=== PATIENT | male | born 1950 | race Caucasian/White ===

== ENCOUNTER → 2019-06-23 07:48 | Outpatient (BNVA) | payer MEDICARE, OTHER, SELFPAY | PROVIDERS: Family Provider Family Medicine; PCP Family Medicine; Visit Provider Anesthesiology | DX: G89.29 Other chronic pain (principal); M51.36 Other intervertebral disc degeneration, lumbar region; M53.9 Dorsopathy, unspecified; M54.2 Cervicalgia; Z79.891 Long term (current) use of opiate analgesic | CPT/HCPCS: 99214 ==

== ENCOUNTER → 2019-08-17 08:01 | Outpatient (BNVA) | payer MEDICARE, OTHER, SELFPAY | PROVIDERS: Family Provider Family Medicine; PCP Family Medicine; Visit Provider Anesthesiology | DX: G89.29 Other chronic pain (principal); M51.36 Other intervertebral disc degeneration, lumbar region; M53.9 Dorsopathy, unspecified; M54.2 Cervicalgia; M79.651 Pain in right thigh; M79.652 Pain in left thigh; Z79.891 Long term (current) use of opiate analgesic | CPT/HCPCS: 99214 ==

== ENCOUNTER → 2019-12-06 10:45 | Outpatient (BNVA) | payer MEDICARE, OTHER, SELFPAY | PROVIDERS: Family Provider Family Medicine; PCP Family Medicine; Visit Provider Internal Medicine Cardiovascular Disease | DX: R07.89 Other chest pain (principal); I49.9 Cardiac arrhythmia, unspecified; Z79.01 Long term (current) use of anticoagulants; R53.83 Other fatigue; R06.02 Shortness of breath; E11.65 Type 2 diabetes mellitus with hyperglycemia; I10 Essential (primary) hypertension; E78.2 Mixed hyperlipidemia | CPT/HCPCS: 80048; 83036; 84443; 85025 ==

== ENCOUNTER → 2019-12-08 11:07 | Outpatient (BNVA) | payer MEDICARE, OTHER, SELFPAY | PROVIDERS: Family Provider Family Medicine; PCP Family Medicine; Visit Provider Nurse Practitioner Family | DX: E78.2 Mixed hyperlipidemia (principal); R53.83 Other fatigue; Z96.649 Presence of unspecified artificial hip joint; I10 Essential (primary) hypertension; M51.36 Other intervertebral disc degeneration, lumbar region; M54.5 Low back pain; G89.29 Other chronic pain; E11.65 Type 2 diabetes mellitus with hyperglycemia; J30.89 Other allergic rhinitis; M25.511 Pain in right shoulder | CPT/HCPCS: 73030; 80053; 80061; 82306 ==

== ENCOUNTER → 2019-12-13 08:37 | Outpatient (BNVA) | payer MEDICARE, OTHER, SELFPAY | PROVIDERS: Family Provider Family Medicine; PCP Family Medicine; Visit Provider Anesthesiology | DX: G89.29 Other chronic pain (principal); M54.2 Cervicalgia; M51.36 Other intervertebral disc degeneration, lumbar region; M54.9 Dorsalgia, unspecified; M53.9 Dorsopathy, unspecified; Z79.891 Long term (current) use of opiate analgesic | CPT/HCPCS: 99213; 99214 ==

== ENCOUNTER 2020-01-05 07:23 | Outpatient (RCR) | payer MEDICARE, OTHER, SELFPAY | END 2020-01-12 23:59 | disposition home or self-care (01) | LOC: SPT 07:23 | PROVIDERS: PCP Nurse Practitioner Family; Referring Provider Nurse Practitioner Family; Visit Provider Nurse Practitioner Family | DX: M25.511 Pain in right shoulder (principal) | CPT/HCPCS: 97110; 97162 ==

== ENCOUNTER 2020-01-13 06:00 | Outpatient (RCR) | payer MEDICARE, OTHER, SELFPAY | END 2020-02-12 23:59 | disposition home or self-care (01) | LOC: SPT 06:00 | PROVIDERS: PCP Nurse Practitioner Family; Referring Provider Nurse Practitioner Family; Visit Provider Nurse Practitioner Family | DX: M25.511 Pain in right shoulder (principal) | CPT/HCPCS: 97110 ==

== ENCOUNTER 2020-02-13 06:00 | Outpatient (RCR) | payer MEDICARE, OTHER, SELFPAY | END 2020-03-13 23:59 | disposition home or self-care (01) | LOC: SPT 06:00 | PROVIDERS: PCP Nurse Practitioner Family; Referring Provider Nurse Practitioner Family; Visit Provider Nurse Practitioner Family | DX: M25.511 Pain in right shoulder (principal) | CPT/HCPCS: 97110 ==

== ENCOUNTER → 2020-02-23 07:49 | Outpatient (BNVA) | payer MEDICARE, OTHER, SELFPAY | PROVIDERS: Family Provider Family Medicine; PCP Nurse Practitioner Family; Visit Provider Anesthesiology | DX: G89.29 Other chronic pain (principal); M54.2 Cervicalgia; M51.36 Other intervertebral disc degeneration, lumbar region; M54.42 Lumbago with sciatica, left side; M54.41 Lumbago with sciatica, right side; M54.9 Dorsalgia, unspecified; M53.9 Dorsopathy, unspecified; Z79.891 Long term (current) use of opiate analgesic | CPT/HCPCS: 99213; 99214 ==

== ENCOUNTER → 2020-03-01 12:09 | Outpatient (BNVA) | payer MEDICARE, OTHER, SELFPAY | PROVIDERS: Family Provider Family Medicine; PCP Nurse Practitioner Family; Visit Provider Nurse Practitioner Family | DX: E55.9 Vitamin D deficiency, unspecified (principal); E11.65 Type 2 diabetes mellitus with hyperglycemia | CPT/HCPCS: 82306; 83036 ==

== ENCOUNTER → 2020-03-21 07:39 | Outpatient (BNVA) | payer MEDICARE, OTHER, SELFPAY | PROVIDERS: Family Provider Family Medicine; PCP Nurse Practitioner Family; Visit Provider Urology | DX: C61 Malignant neoplasm of prostate (principal); N52.31 Erectile dysfunction following radical prostatectomy; N39.3 Stress incontinence (female) (male) | CPT/HCPCS: 81001 ==

== ENCOUNTER 2020-04-05 11:49 | Emergency (ER) | payer MEDICARE, OTHER, SELFPAY ==
[2020-04-05 12:08] VITALS: BP 125/87; PULSE 95; RESP 18; TEMP 36.9; O2SAT 93; BMI 28.1
--- NOTE | 2020-04-05 13:11 | XR_ITS ---
WS: [id number] Portable AP upright chest, 04/05/2020 Clinical Data: COVID +, Hypoxia Comparison: PA and lateral chest, 01/14/2006. Findings: No nodules, masses or effusions are seen. The heart is normal. The pulmonary vascularity is not increased. No pneumonia or pneumothorax is seen. Minimal patchy atelectatic changes is seen in b oth lower lobes. The aortic arch and descending aorta show tortuosity. XR/XR chest 1V portable [id number] Impression: 1. Atherosclerosis. 2. Minimal atelectatic changes in both lower lobes.
--- NOTE | 2020-04-05 13:29 | ED_ITS ---
HPI - SOB/Dyspnea General: Chief Complaint: COVID symptoms Stated Complaint: COVID + FROM [facility] Time Seen by Provider: 04/05/20 12:53 Source: patient Mode of arrival: ambulatory Limitations: no limitations History of Present Illness: HPI Narrative: Patient is a 69-year-old male who was diagnosed with COVID-19 4 days ago. His nurse practitioner evaluated him today and his oxygen saturation was about 90% on room air. He has complaints of mild shortness of breath and combined with his low oxygen saturation he was asked to come to the emergency department for evaluation. He has a history of hypertension, hyperlipidemia, diabetes, prostate cancer. He denies a fever. MD elicited complaint: shortness of breath Associated symptoms: Deny abdominal pain, fever(s), nausea, palpitations, polydipsia, polyuria or vomiting Review of Systems General: Reports: 10 or more systems reviewed and unremarkable except in HPI and below Const: Denies: fever(s), chills or body aches Eyes: Denies: change in vision or blurry vision ENMT: Denies: throat pain, enlarged tonsils, odynophagia, hoarseness, mouth pain or swelling of lips/tongue Card: Denies: palpitations, irregular heart rhythm, edema or swelling of feet/ankles Resp: Reports: dyspnea; Denies: productive cough or non-productive cough GI: Denies: abdominal pain, nausea or vomiting : Denies: flank pain, dysuria, urinary frequency, urinary urgency or urinary hesitancy Musc: Denies: neck pain, back pain or extremity swelling Skin/Breast: Denies: rash, pruritus or erythema Neuro: Denies: headache(s), numbness in extremities or weakness in extremities Endo: Denies: polyuria, polydipsia or tired all the time PFS ED PFSH: Medical History Abnormal prostate biopsy Atypical chest pain Back Pain Cervical spine pain Chronic low back pain Degeneration of lumbar intervertebral disc Encounter for long-term use of opiate analgesic Environmental and seasonal allergies Essential hypertension Fatigue Medication refill Mixed hyperlipidemia Multilevel degenerative disc disease Opioid contract exists Palpitation (~06/2019) Post-procedural erectile dysfunction Prostate cancer Skin graft (allograft) (autograft) failure Tonsillectomy planned Type 2 diabetes mellitus Ventricular arrhythmia The EKG from today, 12/06/2019, revealed sinus rhythm with a possible old inferior wall ND. Poor R wave progression. Compared to the previous EKG, there may not be a significant change. Surgical History H/O adenoidectomy H/O lateral meniscus repair of left knee History of appendectomy History of hip replacement right History of prostatectomy Hx of colonoscopy (~01/2018) S/P ureteral stent placement Family History Father , at age 88 Myocardial infarction (lateral wall) Mother , at age 53 Prostate cancer Aneurysm Other CAD (coronary artery disease) Diabetes Social History Smoking and tobacco status: former smoker Second hand smoke exposure: No Alcohol intake: never Lives independently: Yes Household members: spouse Marital status: Current occupational status: employed History of recent travel: No Physical Exam Const: COMMON NORMALS: no acute distress, average body habitus, patient oriented x3, no limitations, healthy appearing, alert and well nourished HENMT: COMMON NORMALS: normocephalic, atraumatic and moist oral mucous membranes HEAD & SCALP: normocephalic and atraumatic Neck/C-Spine: COMMON NORMALS: no meningeal signs and no JVD Chest: COMMONS NORMALS: normal inspection of the chest and normal palpation of entire chest wall Resp: COMMON NORMALS: normal respiratory effort, No retractions, No use of accessory muscles and percussion normal AUSCULTATION: rales bilateral PERCUSSION: percussion normal Cardio: COMMON NORMALS: no JVD, regular rate, regular rhythm, S1 normal heart sound present, S2 normal heart sound present, No gallops present (Cardio), No clicks present (Cardio), No murmurs present (Cardio), No rub (Cardio) and Peripheral pulses 2+ throughout RATE: regular rate RHYTHM: regular rhythm HEART SOUNDS: S1 normal heart sound present and S2 normal heart sound present PERIPHERAL PULSES: Peripheral pulses 2+ throughout GI: COMMON NORMALS: Normal to inspection, nondistended, normoactive bowel sounds present, Soft to palpation, non-tender, No hepatosplenomegaly present, no masses and no bruits PALPATION: Yes Soft to palpation and Yes No hepatosplenomegaly present Extremity: COMMON NORMALS: normal to inspection, full ROM, capillary refill normal, no calf tenderness and no pedal edema Neuro: COMMON NORMALS: patient oriented x3 SENSORIUM/ORIENTATION: Yes alert MENINGEAL SIGNS: Yes no meningeal signs Skin: COMMON NORMALS: no rashes or lesions noted, no wounds, turgor normal, no jaundice, no petechiae and no mottling GENERAL SKIN EXAM: no rashes or lesions noted and turgor normal Course Reevaluation(s): Reevaluation #1: Discussed his lab and imaging findings with him. Labs are unremarkable, and are typical for COVID-19. Chest x-ray is negative for acute findings. He is oxygen saturation has been above 94 throughout his ED stay. We will therefore discharge him home with no new orders. He voiced understanding and is in agreement with the plan. Time: 17:00 Vital Signs: Vital signs: Vital Signs Temperature 98.4 F 04/05/20 12:08 Pulse Rate 85 04/05/20 17:30 Respiratory Rate 20 H 04/05/20 17:30 Blood Pressure 124/99 04/05/20 17:30 Pulse Oximetry 94 04/05/20 17:30 MDM - SOB/Dyspnea MDM Narrative: Medical decision making narrative: Patient with a recent diagnosis of COVID-19 infection. He was sent here because of concerns of for hypoxia. In the emergency department he was not hypoxic and his evaluation was unremarkable for severe Covid. He is therefore discharged home with no new orders. Lab Data: Labs: Lab Results 04/05/20 04/05/20 04/05/20 Range/Units 14:20 14:20 14:20 WBC 5.1 (4.0-10.0) 10^3/ uL RBC 5.57 H (4.1-5.3) 10^6/u L Hgb 16.8 H (11.7-16.6) g/dL Hct 50.7 (42.0-52.0) % MCV 91.0 (80-94) fL MCH 30.2 (28.0-34.0) pg MCHC 33.1 (30.0-36.0) g/dL RDW 12.1 (12.1-15.1) % Plt Count 172 (130-400) 10^3/c mm MPV 9.3 (7.4-10.4) fL Neut % (Auto) 82.7 % Lymph % (Auto) 10.2 % [place] % (Auto) 6.1 % Eos % (Auto) 0.4 % Baso % (Auto) 0.4 % Neut # (Auto) 4.22 (1.8-7.7) 10^3/u L Lymph # (Auto) 0.5 L (0.8-4.8) 10^3/u L [place] # (Auto) 0.3 (0.2-0.9) 10^3/u L Eos # (Auto) 0.0 (0.0-0.8) 10^3/u L Baso # (Auto) 0.0 (0.0-0.1) 10^3/u L Nucleated RBC % (a uto) 0 % Nucleated RBCs # 0.0 /100WBC Fibrinogen 576 H (174-498) mg/dL D-Dimer 0.46 (0-0.59) ug/mIFE U Sodium 139 (136-145) mmol/L Potassium 4.0 (3.5-5.1) mmol/L Chloride 102 (98-107) mmol/L Carbon Dioxide 24 (22-29) mmol/L Anion Gap 17.0 (5-19) BUN 18 (8-23) mg/dL Creatinine 0.9 (0.7-1.2) mg/dL GFR Calculation 84.2 L (90-130) mL/min Glucose 135 H (65-115) mg/dL Calculated Osmolal ity 292 (285-295) mOsm/k g Lactic Acid (0.5-2.2) mmol/L Calcium 9.2 (8.5-10.5) mg/dL Total Bilirubin 0.4 (0.15-1.2) mg/dL AST 33 (0-40) U/L ALT 44 H (0-41) U/L Alkaline Phosphata se 60 (40-130) IU/L Lactate Dehydrogen ase 198 (135-225) U/L C-Reactive Protein 55.0 H (0.0-4.9) mg/L Total Protein 7.2 (6.6-8.7) g/dL Albumin 4.3 (3.5-5.2) g/dL Globulin 2.9 (1.3-4.6) g/dL 04/05/20 Range/Units 14:20 WBC (4.0-10.0) 10^3/ uL RBC (4.1-5.3) 10^6/u L Hgb (11.7-16.6) g/dL Hct (42.0-52.0) % MCV (80-94) fL MCH (28.0-34.0) pg MCHC (30.0-36.0) g/dL RDW (12.1-15.1) % Plt Count (130-400) 10^3/c mm MPV (7.4-10.4) fL Neut % (Auto) % Lymph % (Auto) % [place] % (Auto) % Eos % (Auto) % Baso % (Auto) % Neut # (Auto) (1.8-7.7) 10^3/u L Lymph # (Auto) (0.8-4.8) 10^3/u L [place] # (Auto) (0.2-0.9) 10^3/u L Eos # (Auto) (0.0-0.8) 10^3/u L Baso # (Auto) (0.0-0.1) 10^3/u L Nucleated RBC % (a uto) % Nucleated RBCs # /100WBC Fibrinogen (174-498) mg/dL D-Dimer (0-0.59) ug/mIFE U Sodium (136-145) mmol/L Potassium (3.5-5.1) mmol/L Chloride (98-107) mmol/L Carbon Dioxide (22-29) mmol/L Anion Gap (5-19) BUN (8-23) mg/dL Creatinine (0.7-1.2) mg/dL GFR Calculation (90-130) mL/min Glucose (65-115) mg/dL Calculated Osmolal ity (285-295) mOsm/k g Lactic Acid 1.4 (0.5-2.2) mmol/L Calcium (8.5-10.5) mg/dL Total Bilirubin (0.15-1.2) mg/dL AST (0-40) U/L ALT (0-41) U/L Alkaline Phosphata se (40-130) IU/L Lactate Dehydrogen ase (135-225) U/L C-Reactive Protein (0.0-4.9) mg/L Total Protein (6.6-8.7) g/dL Albumin (3.5-5.2) g/dL Globulin (1.3-4.6) g/dL Imaging Data^: CXR: Attestation: I personally reviewed and interpreted this imaging study as follows: Radiologist's impression: [address] [place] [address] XRay Report Signed Patient: Deejay Hankins #: [id number] : 3Acct#:[id number] Age/Sex: 69 / MADM Date: 04/05/20 [facility] Attending Dr: Ordering Provider/Ordering MD: Stoney Poon MD, [facility] Date of Service: 04/05/20 Procedure(s): XR chest 1V portable [id number] Accession Number(s): [id number] Report Number: [id number] WS: [id number] Portable AP upright chest, 04/05/2020 Clinical Data: COVID +, Hypoxia Comparison: PA and lateral chest, 01/14/2006. Findings: No nodules, masses or effusions are seen. The heart is normal. The pulmonary vascularity is not increased. No pneumonia or pneumothorax is seen. Minimal patchy atelectatic changes is seen in both lower lobes. The aortic arch and descending aorta show tortuosity. XR/XR chest 1V portable [id number] Impression: 1. Atherosclerosis. 2. Minimal atelectatic changes in both lower lobes. Dictated By:Ingrid Arreaga MD Signed By:Ingrid Arreaga MDSigned Date/Time:04/05/20 135 DD/ 135 Discharge Plan Discharge Patient Disposition: Home Clinical Impression: COVID-19 virus detected Condition: Stable Prescriptions: Continued amlodipine 10 mg tablet 10 mg PO DAILY Qty: 90 RF: 1 Jardiance 10 mg tablet 10 mg PO DAILY 30 Days Qty: 30 RF: 5 hydrocodone-acetaminophen 10-325 mg tablet 1 tab PO TID PRN (Reason: pain) 30 Days Qty: 90 RF: 0 tizanidine 4 mg tablet 4 mg PO BID PRNRF: 0 triamcinolone acetonide 0.1 % cream 1 applic TOPICAL BID PRNRF: 0 B Complex Plus Vitamin C 66-12-93-5-300 mg capsule 1 cap PO DAILY RF: 0 magnesium hydroxide 400 mg (170 mg magnesium) tablet,chewable PO BID RF: 0 sildenafil (pulm.hypertension) 20 mg tablet 20 mg PO .prn RF: 0 Zyrtec 10 mg capsule PO DAILY RF: 0 vitamin d 2,000 mg PO DAILY RF: 0 ascorbic acid (vitamin C) 1,000 mg tablet 1 gm PO DAILY RF: 0 metoprolol succinate 50 mg tablet extended release 24 hr 50 mg PO BID 30 Days Qty: 60 RF: 5 metformin 500 mg tablet 1,000 mg PO BID 90 Days Qty: 360 RF: 0 atorvastatin 40 mg tablet 40 mg PO DAILY Qty: 90 RF: 0 gabapentin [Neurontin] 300 mg capsule 300 mg PO TID 90 Days Qty: 270 RF: 0 montelukast 10 mg tablet 10 mg PO DAILY Qty: 90 RF: 0 furosemide [Lasix] 20 mg tablet 20 mg PO DAILY PRN (Reason: edema) 30 Days Qty: 90 RF: 3 potassium chloride 8 mEq capsule, extended release 8 meq PO DAILY PRN (Reason: with lasix) 30 Days Qty: 90 RF: 3 meloxicam 15 mg tablet 15 mg PO DAILY Qty: 90 RF: 0 Discharge Orders: Discharge Order (Routine); Ordered 04/05/20 Ordered By: Stoney Poon Referrals: Marylu Gómez FNP [Primary Care Provider] - 1-3 days Discharge Diet: Usual diet Discharge Activity: Increase activity as tolerated Patient Instructions: Viral Syndrome (ED) Activity Restrictions/Additional Instructions: Return for any new or worsening symptoms. Follow-up with your primary care provider within 3 days. Continue your home medications. Discharge Date/Time: 04/05/20 17:34 Coding Level of Care Code ED Trolley Worker for Chg Fwd Exam Comprehensive
[2020-04-05 13:44] VITALS: O2SAT 93
[2020-04-05 14:31] LABS: Basophils % 0.4 %; Eosinophils % 0.4 %; Hematocrit 50.7 % (42.0-52.0); Hemoglobin 16.8 g/dL (11.7-16.6); Lymphocytes # 0.5 10^3/uL (0.8-4.8); Lymphocytes % 10.2 %; Mean Corpuscular HGB Conc 33.1 g/dL (30.0-36.0); Mean Corpuscular Hemoglobin 30.2 pg (28.0-34.0); Mean Platelet Volume 9.3 fL (7.4-10.4); Monocytes # 0.3 10^3/uL (0.2-0.9); Monocytes % 6.1 %; Neutrophils # 4.22 10^3/uL (1.8-7.7); Neutrophils % 82.7 %; Nucleated Red Blood Cells % 0 %; Platelet Count 172 10^3/cmm (130-400); Red Blood Count 5.57 10^6/uL (4.1-5.3); Red Cell Distribution Width 12.1 % (12.1-15.1); White Blood Count 5.1 10^3/uL (4.0-10.0)
[2020-04-05 14:55] VITALS: BP 145/92; PULSE 85; RESP 20; O2SAT 95
[2020-04-05 15:10] LABS: Lactic Sepsis W/Reflex 1.4 mmol/L (0.5-2.2)
[2020-04-05 15:12] LABS: Alanine Aminotransferase 44 U/L (0-41); Albumin Level 4.3 g/dL (3.5-5.2); Alkaline Phosphatase 60 IU/L (40-130); Aspartate Amino Transferase 33 U/L (0-40); Blood Urea Nitrogen 18 mg/dL (8-23); Calcium 9.2 mg/dL (8.5-10.5); Carbon Dioxide 24 mmol/L (22-29); Chloride 102 mmol/L (98-107); Globulin 2.9 g/dL (1.3-4.6); Glomerular Filtration Rate 84.2 mL/min (90-130); Glucose 135 mg/dL (65-115); Lactate Dehydrogenase 198 U/L (135-225); Osmolality Calculated 292 mOsm/kg (285-295); Sodium 139 mmol/L (136-145); Total Bilirubin 0.4 mg/dL (0.15-1.2); Total Protein 7.2 g/dL (6.6-8.7)
[2020-04-05 15:33] LABS: Fibrinogen 576 mg/dL (174-498)
[2020-04-05 15:36] LABS: D Dimer 0.46 ug/mIFEU (0-0.59)
[2020-04-05 16:48] VITALS: BP 138/101; PULSE 87; RESP 18; O2SAT 93
[2020-04-05 17:30] VITALS: BP 124/99; PULSE 85; RESP 20; O2SAT 94
== END 2020-04-05 17:34 | disposition home or self-care (01) ==
PROVIDERS: Emergency Provider Family Medicine; PCP Nurse Practitioner Family
DX: U07.1 COVID-19 (principal); Z79.84 Long term (current) use of oral hypoglycemic drugs; I10 Essential (primary) hypertension; E78.2 Mixed hyperlipidemia; Z85.46 Personal history of malignant neoplasm of prostate; E11.9 Type 2 diabetes mellitus without complications; Z87.891 Personal history of nicotine dependence
CPT/HCPCS: 12345; 71045; 80053; 83605; 83615; 85025; 85378; 85384; 86140; 99282; 99283

== ENCOUNTER 2020-04-10 09:32 | Inpatient (IN) | payer MEDICARE, OTHER, SELFPAY ==
[2020-04-10] VITALS (17 sets, daily range): BP systolic 132–155; BP diastolic 70–95; PULSE 77–102; RESP 18–38; TEMP 36.4–37.4; O2SAT 92–97; BMI 25.2; BMI 25.7
--- NOTE | 2020-04-10 09:38 | XR_ITS ---
WS: [id number] Exam: XR chest 1V portable [id number] Date/Time of Exam: 04/10/2020 9:55 AM Reason For Exam: syncope Findings: Mild groundglass infiltrates have developed in the left lower lung zone with areas of plaque atelecta sis. There is also plaque atelectasis in the right lower lung zone. Heart size is normal. The mediast inum and bony thorax are unremarkable. Thoracic scoliosis noted. XR/XR chest 1V portable [id number] IMPRESSION: 1. Mild groundglass infiltrates have developed in the mid and lower left lung s uggesting pneumonia. Bibasal plaque atelectasis.
[2020-04-10 10:30] LABS: Basophils % 0.2 %; Eosinophils % 0.5 %; Hematocrit 47.9 % (42.0-52.0); Lymphocytes # 0.5 10^3/uL (0.8-4.8); Lymphocytes % 8.1 %; Mean Corpuscular HGB Conc 33.4 g/dL (30.0-36.0); Mean Corpuscular Hemoglobin 29.9 pg (28.0-34.0); Mean Corpuscular Volume 89.4 fL (80-94); Mean Platelet Volume 9.8 fL (7.4-10.4); Monocytes # 0.4 10^3/uL (0.2-0.9); Monocytes % 5.7 %; Neutrophils # 5.54 10^3/uL (1.8-7.7); Neutrophils % 84.9 %; Nucleated Red Blood Cells % 0 %; Platelet Count 279 10^3/cmm (130-400); Red Blood Count 5.36 10^6/uL (4.1-5.3); Red Cell Distribution Width 12.6 % (12.1-15.1); White Blood Count 6.5 10^3/uL (4.0-10.0)
[2020-04-10 10:42] LABS: Fibrinogen 732 mg/dL (174-498)
[2020-04-10 10:45] LABS: D Dimer 0.89 ug/mIFEU (0-0.59)
[2020-04-10 10:48] LABS: Lactate (Lactic Acid level) 1.2 mmol/L (0.5-2.2)
[2020-04-10 11:00] LABS: Procalcitonin 8.86 ng/mL (0-0.5)
--- NOTE | 2020-04-10 11:02 | ED_ITS ---
HPI - COVID General: Chief Complaint: COVID symptoms Stated Complaint: WORSENING SYMPTOMS, COVID POSITIVE Time Seen by Provider: 04/10/20 09:56 Triage information: Has fever, cough or shortness of breath . Exposure to COVID + person last 14 days History of Present Illness: HPI Narrative: 69-year-old male presents emergency room with complaint of shortness of breath congestion. On 04/01 the patient tested positive for Covid. He states that on 04/05 he was seen in another ER for shortness of breath that continues to worsen until today he represents. On arrival his oxygen sat are 90 to 93%. He has had temperature of 102 at home as well. MD complaint: known COVID positive Prior covid testing: yes, results known Prior testing date: 04/01/20 COVID 19 common symptoms: positive fever(s), chills, cough and dyspnea; negative throat pain, nasal congestion, nausea, vomiting or diarrhea COVID 19 other sytmptoms: positive chest pressure; negative chest pain Onset (ago): day(s) (9) Severity: severe Pertinent comorbid conditions: diabetes and hypertension Treatment prior to arrival: acetaminophen COVID Results: No Data to Display Review of Systems Const: Reports: fever(s) and chills ENMT: Denies: throat pain, ear or mastoid pain, nasal discharge or nasal congestion Card: Denies: chest pain, edema, dyspnea on exertion or orthopnea Resp: Reports: dyspnea GI: Denies: abdominal pain, nausea, vomiting, hematemesis, coffee ground emesis, diarrhea, constipation, bloating, hematochezia or melena : Denies: flank pain, dysuria, urinary frequency or urinary urgency Skin/Breast: Denies: rash or pruritus PFSH ED PFSH: Medical History Abnormal prostate biopsy Atypical chest pain Back Pain Cervical spine pain Chronic low back pain Degeneration of lumbar intervertebral disc Encounter for long-term use of opiate analgesic Environmental and seasonal allergies Essential hypertension Fatigue Medication refill Mixed hyperlipidemia Multilevel degenerative disc disease Opioid contract exists Palpitation (~06/2019) Post-procedural erectile dysfunction Prostate cancer Skin graft (allograft) (autograft) failure Tonsillectomy planned Type 2 diabetes mellitus Ventricular arrhythmia The EKG from today, 12/06/2019, revealed sinus rhythm with a possible old inferior wall [place]. Poor R wave progression. Compared to the previous EKG, there may not be a significant change. Surgical History H/O adenoidectomy H/O lateral meniscus repair of left knee History of appendectomy History of hip replacement right History of prostatectomy Hx of colonoscopy (~01/2018) S/P ureteral stent placement Family History Father , at age 88 Myocardial infarction (lateral wall) Mother , at age 53 Prostate cancer Aneurysm Other CAD (coronary artery disease) Diabetes Social History (Updated 04/10/20 @ 17:06 by Hilda Yoon MD) Smoking and tobacco status: former smoker Quit status (tobacco): has quit using tobacco Former quit date comment: 50 yrs ago Second hand smoke exposure: No Alcohol intake: never Substance/Drug Use: never Lives independently: Yes Household members: spouse Marital status: Current occupational status: employed 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 History of recent travel: No Physical Exam Const: GENERAL APPEARANCE: cooperative ORIENTATION/CONSCIOUSNESS: Yes awake, Yes oriented to person, Yes oriented to place and Yes oriented to time HENMT: COMMON NORMALS: normocephalic, atraumatic and hearing grossly normal bi laterally HEAD & SCALP: normocephalic and atraumatic Neck/C-Spine: COMMON NORMALS: no JVD Resp: AUSCULTATION: rhonchi and wheezes Cardio: COMMON NORMALS: no JVD, regular rate, regular rhythm and No murmurs present (Cardio) RATE: regular rate RHYTHM: regular rhythm GI: COMMON NORMALS: Soft to palpation and No hepatosplenomegaly present AUSCULTATION: Yes normoactive bowel sounds PALPATION: Yes Soft to palpation, No Tenderness to palpation present (GI), No Guarding due to palpation present (GI) and Yes No hepatosplenomegaly present Extremity: COMMON NORMALS: normal to inspection, capillary refill normal, no clubbing, cyanosis or edema, no calf tenderness and no pedal edema Neuro: SENSORIUM/ORIENTATION: Yes oriented to person, Yes oriented to place and Yes oriented to time Skin: COMMON NORMALS: no rashes or lesions noted GENERAL SKIN EXAM: no rashes or lesions noted Course Vital Signs: Vital signs: Vital Signs Temperature 98.4 F 04/11/20 07:31 Pulse Rate 91 04/11/20 06:00 Respiratory Rate 14 04/11/20 06:00 Blood Pressure 135/71 04/11/20 06:00 Pulse Oximetry 92 04/11/20 06:00 MDM - COVID Lab Data Result diagrams: 04/11/20 03:30 04/11/20 03:30 Labs: Lab Results 04/10/20 04/10/20 04/10/20 Range/Units 10:10 10:10 10:10 WBC 6.5 (4.0-10.0) 10^3/uL RBC 5.36 H (4.1-5.3) 10^6/uL Hgb 16.0 (11.7-16.6) g/dL Hct 47.9 (42.0-52.0) % MCV 89.4 (80-94) fL MCH 29.9 (28.0-34.0) pg MCHC 33.4 (30.0-36.0) g/dL RDW 12.6 (12.1-15.1) % Plt Count 279 (130-400) 10^3/cmm MPV 9.8 (7.4-10.4) fL Neut % (Auto) 84.9 % Lymph % (Auto) 8.1 % [place] % (Auto) 5.7 % Eos % (Auto) 0.5 % Baso % (Auto) 0.2 % Neut # (Auto) 5.54 (1.8-7.7) 10^3/uL Lymph # (Auto) 0.5 L (0.8-4.8) 10^3/uL Todd # (Auto) 0.4 (0.2-0.9) 10^3/uL Eos # (Auto) 0.0 (0.0-0.8) 10^3/uL Baso # (Auto) 0.0 (0.0-0.1) 10^3/uL Nucleated RBC % (auto) 0 % Nucleated RBCs # 0.0 /100WBC ESR (0-10) mm/hr Fibrinogen 732 H (174-498) mg/dL D-Dimer 0.89 H (0-0.59) ug/mIFEU Sodium 139 (136-145) mmol/L Potassium 3.9 (3.5-5.1) mmol/L Chloride 103 (98-107) mmol/L Carbon Dioxide 20 L (22-29) mmol/L Anion Gap 19.9 H (5-19) BUN 19 (8-23) mg/dL Creatinine 0.6 L (0.7-1.2) mg/dL GFR Calculation 134.4 H (90-130) mL/min Glucose 123 H (65-115) mg/dL Calculated Osmolality 292 (285-295) mOsm/kg Lactate (0.5-2.2) mmol/L Calcium 9.5 (8.5-10.5) mg/dL Ferritin 1661 H (30-400) ng/mL Total Bilirubin 0.4 (0.15-1.2) mg/dL AST 36 (0-40) U/L ALT 30 (0-41) U/L Alkaline Phosphatase 57 (40-130) IU/L C-Reactive Protein 65.4 H (0.0-4.9) mg/L Total Protein 7.3 (6.6-8.7) g/dL Albumin 4.0 (3.5-5.2) g/dL Globulin 3.3 (1.3-4.6) g/dL Procalcitonin 8.86 H (0-0.5) ng/mL 04/10/20 04/10/20 Range/Units 10:10 10:10 WBC (4.0-10.0) 10^3/uL RBC (4.1-5.3) 10^6/uL Hgb (11.7-16.6) g/dL Hct (42.0-52.0) % MCV (80-94) fL MCH (28.0-34.0) pg MCHC (30.0-36.0) g/dL RDW (12.1-15.1) % Plt Count (130-400) 10^3/cmm MPV (7.4-10.4) fL Neut % (Auto) % Lymph % (Auto) % [place] % (Auto) % Eos % (Auto) % Baso % (Auto) % Neut # (Auto) (1.8-7.7) 10^3/uL Lymph # (Auto) (0.8-4.8) 10^3/uL Todd # (Auto) (0.2-0.9) 10^3/uL Eos # (Auto) (0.0-0.8) 10^3/uL Baso # (Auto) (0.0-0.1) 10^3/uL Nucleated RBC % (auto) % Nucleated RBCs # /100WBC ESR 58 H (0-10) mm/hr Fibrinogen (174-498) mg/dL D-Dimer (0-0.59) ug/mIFEU Sodium (136-145) mmol/L Potassium (3.5-5.1) mmol/L Chloride (98-107) mmol/L Carbon Dioxide (22-29) mmol/L Anion Gap (5-19) BUN (8-23) mg/dL Creatinine (0.7-1.2) mg/dL GFR Calculation (90-130) mL/min Glucose (65-115) mg/dL Calculated Osmolality (285-295) mOsm/kg Lactate 1.2 (0.5-2.2) mmol/L Calcium (8.5-10.5) mg/dL Ferritin (30-400) ng/mL Total Bilirubin (0.15-1.2) mg/dL AST (0-40) U/L ALT (0-41) U/L Alkaline Phosphatase (40-130) IU/L C-Reactive Protein (0.0-4.9) mg/L Total Protein (6.6-8.7) g/dL Albumin (3.5-5.2) g/dL Globulin (1.3-4.6) g/dL Procalcitonin (0-0.5) ng/mL COVID Results: No Data to Display Discharge Plan Discharge Patient Disposition: Admitted As Inpatient Admit Provider: Hilda Yoon Clinical Impression: Pneumonia due to COVID-19 virus, Type 2 diabetes mellitus, Essential hypertension Condition: Stable Interventions: ED Discharge Assessment Last Done: 04/10/20 15:38 ED Charges Last Done: 04/10/20 15:38 Discharge Date/Time: 04/10/20 16:02 Coding Level of Care Code ED Men'S Furnishings Salesperson for Griselda Fwd Exam Comprehensive
[2020-04-10 11:11] LABS: Alanine Aminotransferase 30 U/L (0-41); Alkaline Phosphatase 57 IU/L (40-130); Anion Gap 19.9 (5-19); Aspartate Amino Transferase 36 U/L (0-40); Blood Urea Nitrogen 19 mg/dL (8-23); C Reactive Protein 65.4 mg/L (0.0-4.9); Calcium 9.5 mg/dL (8.5-10.5); Carbon Dioxide 20 mmol/L (22-29); Chloride 103 mmol/L (98-107); Creatinine Clr Calc Pharmacy 90.1834; Globulin 3.3 g/dL (1.3-4.6); Glomerular Filtration Rate 134.4 mL/min (90-130); Glucose 123 mg/dL (65-115); Osmolality Calculated 292 mOsm/kg (285-295); Potassium 3.9 mmol/L (3.5-5.1); Sodium 139 mmol/L (136-145); Total Bilirubin 0.4 mg/dL (0.15-1.2); Total Protein 7.3 g/dL (6.6-8.7)
[2020-04-10 11:20] LABS: Erythrocyte Sedimentation Rate 58 mm/hr (0-10)
[2020-04-10 11:33] LABS: Ferritin 1661 ng/mL (30-400)
[2020-04-10] MEDS: dexamethasone 4 mg/mL INJ 6 MG IVP (11:45)
--- NOTE | 2020-04-10 13:59 | PC.NURSE ---
Rx completed, no acute distress. Continue to monitor
--- NOTE | 2020-04-10 15:34 | PC.NURSE ---
Dr Stevens in room
--- NOTE | 2020-04-10 16:58 | P.HP_ITS ---
Providers/Chief Complaint Admitting Physician: Hilda Yoon MD Primary Care Provider: JARROD Seay Chief Complaint: WORSENING SYMPTOMS, COVID POSITIVE History of Present Illness Deejay Hankins is a 69 year old male with PMHx noted below, presents secondary to worsening shortness of breath, persistent dry cough, fever for the past several days. He was initially diagnosed with COVID-19 infection on 04/03 and since then his symptoms have gradually been worsening particularly with respect to shortness of breath and cough. He has also had diarrhea, abdominal discomfort and nausea, decreased appetite, loss of sense of taste and smell and the fever with a T-max of 102F. He is not oxygen dependent at baseline and has had increased respiratory effort which is what prompted his visit to the ER today. He is currently on 2 L nasal cannula during my encounter in the ER, with noted conversational dyspnea but is able to provide much of his own history; additional information obtained from review of [facility]. Work-up so far indicates normal CBC, normal chemistry, normal renal function, lactic acid of 1.2, significant elevation in procalcitonin at 8.86, elevated inflammatory markers including D-dimer, ferritin, CRP. Chest x-ray is reported as groundglass infiltrates involving the left lung. He has received a first dose of remdesivir and dexamethasone and will require further treatment given his symptoms. He will be admitted to the viral ICU for further management. Review of Systems Const: Reports: fever(s), chills, body aches, change in appetite (decreased appetite), change in weight (weight loss), fatigue and malaise Eyes: Denies: change in vision ENMT: Reports: dry mouth Card: Reports: dyspnea on exertion; Denies: chest pain, swelling of feet/ankles or lightheadedness Resp: Reports: dyspnea and productive cough (clear sputum); Denies: hemoptysis GI: Reports: nausea; Denies: abdominal pain, vomiting, hematemesis or hematochezia : Denies: dysuria or hematuria Musc: Denies: back pain Skin/Breast: Denies: rash Neuro: Reports: weakness in extremities; Denies: numbness in extremities Psych: Denies: anxiety Medications/Allergies Home Medications Medication Instructions Recorded Confirmed Last Taken Type tizanidine 4 mg tablet 4 mg PO BID PRN 06/15/19 04/10/20 Unknown History triamcinolone acetonide 0.1 % 1 applic TOPICAL BID PRN 06/15/19 04/10/20 Unknown History topical cream cetirizine 10 mg capsule 10 mg PO DAILY cap 06/16/19 04/10/20 04/09/20 History furosemide 20 mg tablet 20 mg PO DAILY PRN 30 Days #90 tab 09/06/19 04/10/20 Unknown Rx metoprolol succinate 50 mg 50 mg PO BID 30 Days #60 tab 12/06/19 04/10/20 04/10/20 Rx tablet,extended release 24 hr amlodipine 10 mg tablet 10 mg PO DAILY #90 tab 12/08/19 04/10/20 04/10/20 Rx empagliflozin 10 mg tablet 10 mg PO DAILY 30 Days #30 tab 12/08/19 04/10/20 04/10/20 Rx potassium chloride 8 mEq 8 meq PO DAILY PRN 30 Days #90 cap 02/14/20 04/10/20 Unknown Rx capsule,extended release hydrocodone 10 mg-acetaminophen 1 tab PO TID PRN 30 Days #90 tab 02/23/20 04/10/20 04/09/20 Rx 325 mg tablet atorvastatin 40 mg tablet 40 mg PO DAILY #90 tab 03/01/20 04/10/20 04/09/20 Rx gabapentin 300 mg capsule 300 mg PO TID 90 Days #270 cap 03/01/20 04/10/20 04/10/20 Rx meloxicam 15 mg tablet 15 mg PO DAILY #90 tab 03/01/20 04/10/20 Unknown Rx metformin 500 mg tablet 1,000 mg PO BID 90 Days #360 tab 03/01/20 04/10/20 1 Rx montelukast 10 mg tablet 10 mg PO DAILY #90 tab 03/01/20 04/10/20 04/10/20 Rx ascorbic acid (vitamin C) 1,000 mg 1 gm PO DAILY tab 03/21/20 04/10/20 04/09/20 History tablet sildenafil (pulm.hypertension) 20 20 mg PO PRN PRN tab 03/21/20 04/10/20 Unknown History mg tablet acetaminophen 325 mg PO QID PRN 04/10/20 04/10/20 04/09/20 History aspirin 162 mg PO DAILY 04/10/20 04/10/20 04/10/20 History cholecalciferol (vitamin D3) 50 mcg PO DAILY 04/10/20 04/10/20 04/10/20 History [Vitamin D3] ibuprofen 600 mg PO QID PRN 04/10/20 04/10/20 04/10/20 History magnesium 250 mg PO BID 04/10/20 04/10/20 04/10/20 History Allergies Allergy/AdvReac Type Severity Reaction Status Date / Time tramadol Allergy itching Verified 04/10/20 09:46 Opioids - Morphine Analogues AdvReac Unknown extreme Verified 04/10/20 09:46 headache PFSH Acute PFSH: Medical History Abnormal prostate biopsy Atypical chest pain Back Pain Cervical spine pain Chronic low back pain Degeneration of lumbar intervertebral disc Encounter for long-term use of opiate analgesic Environmental and seasonal allergies Essential hypertension Fatigue Medication refill Mixed hyperlipidemia Multilevel degenerative disc disease Opioid contract exists Palpitation (~06/2019) Post-procedural erectile dysfunction Prostate cancer Skin graft (allograft) (autograft) failure Tonsillectomy planned Type 2 diabetes mellitus Ventricular arrhythmia The EKG from today, 12/06/2019, revealed sinus rhythm with a possible old inferior wall WI. Poor R wave progression. Compared to the previous EKG, there may not be a significant change. Surgical History H/O adenoidectomy H/O lateral meniscus repair of left knee History of appendectomy History of hip replacement right History of prostatectomy Hx of colonoscopy (~01/2018) S/P ureteral stent placement Family History Father , at age 88 Myocardial infarction (lateral wall) Mother , at age 53 Prostate cancer Aneurysm Other CAD (coronary artery disease) Diabetes Social History (Updated 04/10/20 @ 17:06 by Hilda Yoon MD) Smoking and tobacco status: former smoker Quit status (tobacco): has quit using tobacco Former quit date comment: 50 yrs ago Second hand smoke exposure: No Alcohol intake: never Substance/Drug Use: never Lives independently: Yes Household members: spouse Marital status: Current occupational status: employed Current occupation: [employer] History of recent travel: No Vitals/I&O/Wt Last Vital Signs Temp 99.3 F 04/10/20 16:00 Pulse 95 04/10/20 16:00 Resp 30 H 04/10/20 16:00 BP 155/82 04/10/20 16:00 Pulse Ox 95 04/10/20 16:00 04/10/20 04/10/20 04/10/20 06:59 14:59 22:59 Intake Total 100 / 100 Balance 100 / 100 Weight last 48 hrs Weight 76.884 kg Weight 75.296 kg Physical Exam Const: COMMON NORMALS: no acute distress, patient oriented x3 and alert GENERAL APPEARANCE: cooperative and comfortable ORIENTATION/CONSCIOUSNESS: Yes awake OTHER: -Somewhat ill-appearing HENMT: COMMON NORMALS: normocephalic, atraumatic, hearing grossly normal bilaterally and moist oral mucous membranes HEAD & SCALP: normocephalic and atraumatic Eye: COMMON NORMALS: Equal, round and reactive pupils present, EOMs intact bilaterally and conjunctivae normal CONJUNCTIVA: Yes conjunctivae normal PUPIL: Yes Equal, round and reactive pupils present Neck/C-Spine: COMMON NORMALS: full ROM GENERAL: Yes normal visual inspection and Yes trachea midline Resp: COMMON NORMALS: normal respiratory effort, No retractions and No use of accessory muscles EFFORT & INSPECTION: Yes symmetric chest movement and Yes tachypneic OTHER: -on 2 L NC -Diminished though symmetrical air entry bilaterally; conversational dyspnea Cardio: COMMON NORMALS: regular rate, regular rhythm, S1 normal heart sound present, S2 normal heart sound present and No murmurs present (Cardio) RATE: regular rate RHYTHM: regular rhythm HEART SOUNDS: S1 normal heart sound present and S2 normal heart sound present GI: COMMON NORMALS: Normal to inspection, nondistended, normoactive bowel sounds present, Soft to palpation and non-tender INSPECTION: Yes central obesity PALPATION: Yes Soft to palpation Extremity: COMMON NORMALS: normal to inspection, full ROM and no clubbing, cyanosis or edema; negative for no pedal edema Neuro: COMMON NORMALS: patient oriented x3, moves all extremities, no focal motor deficits and no sensory deficits noted SENSORIUM/ORIENTATION: Yes alert Psych: COMMON NORMALS: mental status grossly normal, Normal thought process present, cooperative, normal affect and speech normal SPEECH: Yes normal speech THOUGHT PROCESS: Normal thought process present Skin: COMMON NORMALS: no rashes or lesions noted, no jaundice, no petechiae and no mottling GENERAL SKIN EXAM: no rashes or lesions noted Data : 04/10/20 10:10 04/10/20 10:10 Micro: Microbiology 04/10/20 12:21 Gram Stain - Final Sputum - Expectorated Sputum 04/10/20 10:15 Blood Culture - Preliminary Blood SPECIMEN COLLECTED 04/10/20 10:10 Blood Culture - Preliminary Blood SPECIMEN COLLECTED A&P Assessment and plan (1) Pneumonia due to COVID-19 virus: -Has been COVID-19 positive for several days with gradually worsening symptoms (test on 04/03) particularly with respect to shortness of breath, persistent cough, diarrhea, decreased appetite and oral intake -Not oxygen dependent at baseline, currently requiring 2 L nasal cannula, wean as tolerated -Monitor respiratory status -Monitor vital signs -Telemetry monitoring -Chest x-ray consistent with left-sided pneumonia -Has already received a first dose of dexamethasone and remdesivir, continue these -Noted elevated inflammatory markers including procalcitonin; trend this -Start on empiric antibiotic therapy -f/u blood and sputum cx -screen for influenza, check MRSA, bacterial antigens, Legionella -supportive care including zinc, vitamin C, IS, antitussives, breathing treatments as needed Status: Acute (2) Multilevel degenerative disc disease: -resume pain meds -follows up at pain management clinic Status: Chronic (3) Mixed hyperlipidemia: -resume statin Status: Chronic (4) Type 2 diabetes mellitus: -A1c at goal (6.8) -Accu-Cheks, ISS -Hold oral hypoglycemic agents -Hypoglycemic precautions -Consistent carb diet as tolerated Status: Chronic Qualifiers: Diabetes mellitus complication status: with hyperglycemia Diabetes mellitus long-term insulin use: without terminal makeup operator use Qualified Code(s): E11.65 - Type 2 diabetes mellitus with hyperglycemia (5) Essential hypertension: -Monitor vital signs -Resume oral antihypertensives Status: Chronic Additional A&P Information -hx of prostate cancer s/p prostatectomy; f/u with Dr. Veliz -GI ppx with famotidine -DVT ppx with lovenox -Dispo: home -Code status: FULL code -Admit to [facility] Attestations Medical Necessity Statement*: [place] [facility] stay will require greater than 2 midnights for management of COVID-19 pneumonia, currently requiring supplemental oxygen support and close monitoring of respiratory status, initiation of antibiotic and antiviral treatment. Time Spent in Patient Care: Greater than 35 minutes (>than 50% of time spent in counselling and/or direct pt care on unit) . Coding Level of Care Code Acute Embryology Teacher for g Fwd Exam Comprehensive Diagnoses Pneumonia due to COVID-19 virus U07.1; J12.89 Multilevel degenerative disc disease M53.9 Mixed hyperlipidemia E78.2 Type 2 diabetes mellitus E11.65 Diabetes mellitus complication status: with hyperglycemia Diabetes mellitus long-term insulin use: without terminal makeup operator use Essential hypertension I10
[2020-04-10] MEDS: ondansetron 2 mg/ML SDV 2 mL 4 MG IVP (17:00)
[2020-04-10] MEDS: metoprolol succinate ER (24 HR) 50 mg Tablet PO (17:19)
[2020-04-10 17:22] LABS: Glucose Point of Care 151 mg/dL (70-110)
[2020-04-10] MEDS: azithromycin 500 MG in sodium chloride 0.9% 250 ML 250 MG IV (17:24)
[2020-04-10] MEDS: enoxaparin 40 mg/0.4 mL Syringe SUBCUT (17:25)
[2020-04-10] MEDS: cefTRIAXone 1,000 MG in sodium chloride 0.9% (plus) 50 ML 100 MG IV (17:25)
[2020-04-10] MEDS: HYDROcodone-acetaminophen 10-325 mg Tablet 1 TAB PO (17:37)
[2020-04-10 18:07] LABS: Add Urine Microscopic? NO
[2020-04-10 19:10] LABS: Bilirubin Urine Neg (Negative); Blood Urine Neg (Negative); Glucose Urine UA 4+ (Normal); Ketones Urine 3+ (Negative); Leukocyte Esterase Urine Negative (Negative); Nitrate Urine Negative (Negative); Protein Urine Neg (Negative); Urine Appearance Clear (CLEAR); Urine Color Yellow (Yellow); Urobilinogen Urine Norm (Negative); pH Urine 5 (5-7)
[2020-04-10 19:56] LABS: Influenza A by IFA Negative (Negative); Influenza B by IFA Negative (Negative)
[2020-04-10] MEDS: atorvastatin 40 mg Tablet PO (20:29)
[2020-04-10] MEDS: gabapentin 300 mg Capsule PO (20:29)
[2020-04-10] MEDS: benzonatate 100 mg Capsule 200 MG PO (20:29)
[2020-04-10] MEDS: albuterol 8 gm MDI 2 PUFF INHALATION (22:18)
[2020-04-11] VITALS (28 sets, daily range): BP systolic 97–141; BP diastolic 63–97; PULSE 70–99; RESP 0–39; TEMP 36.6–37.2; O2SAT 92–97
[2020-04-11 00:41] LABS: Glucose Point of Care 126 mg/dL (70-110)
[2020-04-11 05:26] LABS: Hematocrit 43.5 % (42.0-52.0); Hemoglobin 14.3 g/dL (11.7-16.6); Lymphocytes # 0.4 10^3/uL (0.8-4.8); Lymphocytes % 8.6 %; Mean Corpuscular HGB Conc 32.9 g/dL (30.0-36.0); Mean Corpuscular Hemoglobin 30.6 pg (28.0-34.0); Mean Corpuscular Volume 93.1 fL (80-94); Mean Platelet Volume 9.7 fL (7.4-10.4); Monocytes # 0.4 10^3/uL (0.2-0.9); Neutrophils # 4.04 10^3/uL (1.8-7.7); Neutrophils % 82.8 %; Nucleated Red Blood Cells % 0 %; Platelet Count 264 10^3/cmm (130-400); Red Blood Count 4.67 10^6/uL (4.1-5.3); Red Cell Distribution Width 12.6 % (12.1-15.1); White Blood Count 4.9 10^3/uL (4.0-10.0)
[2020-04-11 05:30] LABS: Fibrinogen 648 mg/dL (174-498)
[2020-04-11 05:32] LABS: D Dimer 0.92 ug/mIFEU (0-0.59)
[2020-04-11 05:42] LABS: Albumin Level 3.4 g/dL (3.5-5.2); Alkaline Phosphatase 45 IU/L (40-130); Blood Urea Nitrogen 20 mg/dL (8-23); Calcium 8.8 mg/dL (8.5-10.5); Carbon Dioxide 19 mmol/L (22-29); Chloride 103 mmol/L (98-107); Globulin 2.7 g/dL (1.3-4.6); Glomerular Filtration Rate 96.4 mL/min (90-130); Glucose 144 mg/dL (65-115); Osmolality Calculated 293 mOsm/kg (285-295); Sodium 139 mmol/L (136-145); Total Bilirubin 0.2 mg/dL (0.15-1.2); Total Protein 6.1 g/dL (6.6-8.7)
[2020-04-11 05:47] LABS: Anion Gap 21.9 (5-19); Potassium 4.9 mmol/L (3.5-5.1)
[2020-04-11 05:48] LABS: Alanine Aminotransferase 29 U/L (0-41); Aspartate Amino Transferase 43 U/L (0-40); C Reactive Protein 47.1 mg/L (0.0-4.9)
[2020-04-11 05:50] LABS: Creatine Phosphokinase 36 U/L (39-308)
[2020-04-11 05:54] LABS: NT Pro B Type Natriuretic Pept 196 pg/mL (0-125); Procalcitonin 4.63 ng/mL (0-0.5)
[2020-04-11 06:17] LABS: Ferritin 1395 ng/mL (30-400)
[2020-04-11 06:18] LABS: Lactate Dehydrogenase 376 U/L (135-225)
[2020-04-11 07:46] LABS: Glucose Point of Care 157 mg/dL (70-110)
[2020-04-11] MEDS: HYDROcodone-acetaminophen 10-325 mg Tablet 1 TAB PO ×2 (07:59→20:48)
[2020-04-11] MEDS: benzonatate 100 mg Capsule 200 MG PO ×3 (07:59→20:23)
[2020-04-11] MEDS: gabapentin 300 mg Capsule PO ×3 (07:59→20:23)
[2020-04-11] MEDS: atorvastatin 40 mg Tablet PO (07:59)
[2020-04-11] MEDS: aspirin 81 mg Chew Tablet 162 MG PO (08:00)
[2020-04-11] MEDS: cetirizine 10 mg Tablet PO (08:00)
[2020-04-11] MEDS: metoprolol succinate ER (24 HR) 50 mg Tablet PO ×2 (08:01→17:01)
[2020-04-11] MEDS: NON-FORMULARY MEDICATION (Magnesium 250 MG) 250 EACH PO ×2 (08:01→17:01)
[2020-04-11] MEDS: ascorbic acid 500 mg Tablet 1000 MG PO (08:03)
[2020-04-11] MEDS: cholecalciferol (vitamin D3) 1,000 unit Tablet 2000 UNIT PO (08:03)
[2020-04-11] MEDS: zinc gluconate 50 mg Tablet PO (08:03)
[2020-04-11] MEDS: montelukast sodium 10 mg Tablet PO (08:03)
[2020-04-11] MEDS: dexamethasone 4 mg/mL INJ 6 MG IVP (08:03)
[2020-04-11] MEDS: amlodipine 10 mg Tablet PO (08:03)
[2020-04-11] MEDS: famotidine 20 mg Tablet PO ×2 (08:03→17:02)
[2020-04-11] MEDS: albuterol 8 gm MDI 2 PUFF INHALATION (09:28)
[2020-04-11 11:20] LABS: Glucose Point of Care 324 mg/dL (70-110)
--- NOTE | 2020-04-11 14:10 | PM.PN ---
Subjective Subjective: Interval history: Decreasing oxygen requirement, hemodynamically stable and afebrile. On day 2 of remdesivir, noted improvement in inflammatory markers. Normal CBC and chemistry. Accu-Cheks reviewed. Reports feeling better today, has been trying to use the incentive spirometry every hour. Ambulated in the hallway earlier this afternoon. Medications: Reviewed: Yes Medication Review Details: Active Medications Generic Name Dose Route Start Last Admin Trade Name Freq PRN Reason Stop Dose Admin Acetaminophen 650 mg 04/10/20 15:11 Tylenol PO Q6H PRN Mild/Mod Pain Or Temp >/= 101 Hydrocodone Bitart /Acetaminophen 1 tab 04/10/20 17:00 04/11/20 07:59 [place] 10-325 Mg PO 1 tab TID PRN Administration moderate to sever e pain Albuterol Sulfate 2 puff 04/10/20 16:58 04/11/20 09:28 Ventolin INHALATION 2 puff Q4H.RESPIRATORY P RN Administration SHORTNESS OF SEMAJ TH Amlodipine Besylat e 10 mg 04/11/20 09:00 04/11/20 08:03 Norvasc PO 10 mg DAILY GISEL Administration Ascorbic Acid 1,000 mg 04/11/20 09:00 04/11/20 08:03 Vitamin C PO 1,000 mg DAILY GISEL Administration Aspirin 162 mg 04/11/20 09:00 04/11/20 08:00 Aspirin Chewable PO 162 mg DAILY GISEL Administration Atorvastatin Calci um 40 mg 04/10/20 21:00 04/11/20 07:59 Lipitor PO 40 mg DAILY GISEL Administration Benzonatate 200 mg 04/10/20 21:00 04/11/20 07:59 Tessalon Pearls PO 200 mg TID GISEL Administration Cetirizine HCl 10 mg 04/11/20 09:00 04/11/20 08:00 Zyrtec PO 10 mg DAILY GISEL Administration Dexamethasone 6 mg 04/11/20 09:00 04/11/20 08:03 Decadron IVP 6 mg Q24H GISEL Administration Dextrose 25 ml 04/10/20 17:04 D50w IVP ONCE PRN hypoglycemia prot ocol Protocol Dextrose 50 ml 04/10/20 17:04 D50w IVP PRN PRN hypoglycemia prot ocol Protocol Enoxaparin Sodium 40 mg 04/10/20 17:00 04/10/20 17:25 Lovenox SUBCUT 40 mg Q24H GISEL Administration Famotidine 20 mg 04/11/20 09:00 04/11/20 08:03 Pepcid Tab PO 20 mg BID GISEL Administration Gabapentin 300 mg 04/10/20 21:00 04/11/20 07:59 Neurontin PO 300 mg TID GISEL Administration Glucagon 1 mg 04/10/20 17:04 Glucagen IM ONCE PRN Adult Acute Hypog lycemia Prot. Protocol remdesivir (EUA) 1 00 mg/ 100 mls @ 100 mls /hr 04/11/20 13:00 04/11/20 12:05 Sodium Chloride IV 04/14/20 13:59 100 mls/hr Q24H GISEL Administration Azithromycin 500 m g/ Sodium 250 mls @ 250 mls /hr 04/10/20 17:00 04/10/20 18:55 Chloride IV Infused Q24H GISEL Infusion Protocol Ceftriaxone Sodium 1,000 mg/ 50 mls @ 100 mls/ hr 04/10/20 17:00 04/10/20 18:17 Sodium Chloride IV Infused Q24H GISEL Infusion Protocol Dextrose 500 mls @ 100 mls /hr 04/10/20 17:04 D5w IV ONCE PRN Adult Acute Hypog lycemia Prot Protocol Insulin Aspart 0 unit 04/10/20 18:00 04/11/20 11:41 Novolog SUBCUT 10 unit WM&BEDTIME GISEL Administration Protocol Metoprolol Succina te 50 mg 04/10/20 18:00 04/11/20 08:01 Toprol Xl PO 50 mg BID GISEL Administration Montelukast Sodium 10 mg 04/11/20 09:00 04/11/20 08:03 Singulair PO 10 mg DAILY GISEL Administration Non-Formulary Medi cation 250 mg 04/10/20 18:00 04/11/20 08:01 Magnesium PO 250 mg BID GISEL Administration Ondansetron HCl 4 mg 04/10/20 15:11 04/10/20 17:00 Zofran IVP 4 mg Q6H PRN Administration NAUSEA AND VOMITI NG Tizanidine HCl 4 mg 04/10/20 17:00 Zanaflex PO BID PRN MUSCLE SPASMS Triamcinolone Acet onide 1 applic 04/10/20 17:00 Triamcinolone 0. 1% Cream TOPICAL BID PRN Skin Irritation Vitamin D 2,000 unit 04/11/20 09:00 04/11/20 08:03 Vitamin D3 PO 2,000 unit DAILY GISEL Administration Zinc Gluconate 50 mg 04/11/20 09:00 04/11/20 08:03 Zinc Gluconate PO 50 mg DAILY GISEL Administration tramadol Allergy (Verified 04/10/20 09:46) itching Opioids - Morphine Analogues Adverse Reaction (Unknown, Verified 04/10/20 09:46) extreme headache Vitals/I&O/Wt Last Vital Signs Temp 97.8 F 04/11/20 11:23 Pulse 89 04/11/20 13:00 Resp 34 H 04/11/20 13:00 BP 133/69 04/11/20 13:00 Pulse Ox 94 04/11/20 13:00 04/10/20 04/11/20 04/11/20 22:59 06:59 14:59 Intake Total 520 / 620 840 / 840 Output Total 450 / 450 250 / 700 625 / 625 Balance 70 / 170 -250 / -80 215 / 215 Weight last 48 hrs Weight 76.884 kg Weight 75.296 kg Physical Exam Const: COMMON NORMALS: no acute distress, patient oriented x3 and alert GENERAL APPEARANCE: cooperative and comfortable ORIENTATION/CONSCIOUSNESS: Yes awake OTHER: -less ill-appearing HENMT: COMMON NORMALS: normocephalic, atraumatic, hearing grossly normal bilaterally and moist oral mucous membranes HEAD & SCALP: normocephalic and atraumatic Eye: COMMON NORMALS: Equal, round and reactive pupils present, EOMs intact bilaterally and conjunctivae normal CONJUNCTIVA: Yes conjunctivae normal PUPIL: Yes Equal, round and reactive pupils present Neck/C-Spine: COMMON NORMALS: full ROM GENERAL: Yes normal visual inspection and Yes trachea midline Resp: COMMON NORMALS: normal respiratory effort, No retractions and No use of accessory muscles EFFORT & INSPECTION: Yes symmetric chest movement and Yes tachypneic OTHER: -on 2 L NC -Diminished though symmetrical air entry bilaterally; conversational dyspnea (less so) Cardio: COMMON NORMALS: regular rate, regular rhythm, S1 normal heart sound present, S2 normal heart sound present and No murmurs present (Cardio) RATE: regular rate RHYTHM: regular rhythm HEART SOUNDS: S1 normal heart sound present and S2 normal heart sound present GI: COMMON NORMALS: Normal to inspection, nondistended, normoactive bowel sounds present, Soft to palpation and non-tender INSPECTION: Yes central obesity PALPATION: Yes Soft to palpation Extremity: COMMON NORMALS: normal to inspection, full ROM and no clubbing, cyanosis or edema; negative for no pedal edema Neuro: COMMON NORMALS: patient oriented x3, moves all extremities, no focal motor deficits and no sensory deficits noted SENSORIUM/ORIENTATION: Yes alert Psych: COMMON NORMALS: mental status grossly normal, Normal thought process present, cooperative, normal affect and speech normal SPEECH: Yes normal speech THOUGHT PROCESS: Normal thought process present Skin: COMMON NORMALS: no rashes or lesions noted, no jaundice, no petechiae and no mottling GENERAL SKIN EXAM: no rashes or lesions noted Data : 04/11/20 03:30 04/11/20 03:30 Micro: Microbiology 04/10/20 10:15 Blood Culture - Preliminary Blood NEGATIVE TO DATE 04/10/20 10:10 Blood Culture - Preliminary Blood NEGATIVE TO DATE 04/10/20 22:00 Legionella Urinary Antigen - Final Urine,Voided Bacterial Antigens - Final 04/10/20 12:21 Gram Stain - Final Sputum - Expectorated Sputum A&P Assessment and plan (1) Pneumonia due to COVID-19 virus: -Has been COVID-19 positive for several days with gradually worsening symptoms (test on 04/03) particularly with respect to shortness of breath, persistent cough, diarrhea, decreased appetite and oral intake -Not oxygen dependent at baseline, currently requiring 2 L nasal cannula, wean as tolerated -continue to monitor respiratory status -continue to monitor vital signs -Telemetry monitoring -Chest x-ray consistent with left-sided pneumonia -continue dexamethasone and remdesivir (day 2) -Noted elevated inflammatory markers including procalcitonin; trend down -on empiric antibiotic therapy -blood cx: prelim negative -sputum cx pending, gram stain polymicrobial -negative influenza, bacterial antigens, Legionella -supportive care including zinc, vitamin C, IS, antitussives, breathing treatments as needed Status: Acute (2) Multilevel degenerative disc disease: -continue pain meds -follows up at pain management clinic Status: Chronic (3) Mixed hyperlipidemia: -continue statin Status: Chronic (4) Type 2 diabetes mellitus: -A1c at goal (6.8) -Accu-Cheks, ISS -Hold oral hypoglycemic agents -Hypoglycemic precautions -Consistent carb diet as tolerated Status: Chronic (5) Essential hypertension: -continue to monitor vital signs -continue oral antihypertensives Status: Chronic Additional A&P Information -hx of prostate cancer s/p prostatectomy; f/u with Dr. Veliz -GI ppx with famotidine -DVT ppx with lovenox -Dispo: home -Code status: FULL code -prefers to update his family himself Attestations Medical Necessity Statement*: Patient requires hospitalization for continued management of COVID-19 pneumonia, on antiviral and antibiotic treatment, needs continued monitoring of respiratory status. Time Spent in Patient Care: 16 - 35 minutes (>than 50% of time spent in counselling and/or direct pt care on unit). Coding Level of Care Code Acute Bindery Cutter Operator for g Fwd Diagnoses Pneumonia due to COVID-19 virus U07.1; J12.89 Multilevel degenerative disc disease M53.9 Mixed hyperlipidemia E78.2 Type 2 diabetes mellitus E11.9 Essential hypertension I10
[2020-04-11] MEDS: tizanidine 4 mg Tablet PO (14:44)
[2020-04-11] MEDS: azithromycin 500 MG in sodium chloride 0.9% 250 ML 250 MG IV (16:12)
[2020-04-11] MEDS: enoxaparin 40 mg/0.4 mL Syringe SUBCUT (16:12)
[2020-04-11] MEDS: cefTRIAXone 1,000 MG in sodium chloride 0.9% (plus) 50 ML 100 MG IV (16:12)
[2020-04-11 16:37] LABS: Glucose Point of Care 317 mg/dL (70-110)
[2020-04-11 21:24] LABS: Glucose Point of Care 343 mg/dL (70-110)
[2020-04-12] VITALS (29 sets, daily range): BP systolic 118–167; BP diastolic 65–86; PULSE 47–87; RESP 0–34; TEMP 36.3–36.9; O2SAT 90–97
[2020-04-12] MEDS: HYDROcodone-acetaminophen 10-325 mg Tablet 1 TAB PO ×2 (04:03→15:32)
[2020-04-12] MEDS: albuterol 8 gm MDI 2 PUFF INHALATION ×4 (05:04→20:10)
[2020-04-12 05:30] LABS: Basophils % 0.1 %; Hemoglobin 14.9 g/dL (11.7-16.6); Lymphocytes # 0.5 10^3/uL (0.8-4.8); Lymphocytes % 6.3 %; Mean Corpuscular HGB Conc 33.9 g/dL (30.0-36.0); Mean Corpuscular Hemoglobin 30.3 pg (28.0-34.0); Mean Corpuscular Volume 89.6 fL (80-94); Mean Platelet Volume 9.7 fL (7.4-10.4); Monocytes # 0.6 10^3/uL (0.2-0.9); Monocytes % 8.2 %; Neutrophils # 6.53 10^3/uL (1.8-7.7); Nucleated Red Blood Cells % 0 %; Platelet Count 292 10^3/cmm (130-400); Red Blood Count 4.91 10^6/uL (4.1-5.3); Red Cell Distribution Width 12.3 % (12.1-15.1); White Blood Count 7.7 10^3/uL (4.0-10.0)
[2020-04-12 06:05] LABS: Alanine Aminotransferase 41 U/L (0-41); Albumin Level 3.4 g/dL (3.5-5.2); Alkaline Phosphatase 57 IU/L (40-130); Aspartate Amino Transferase 36 U/L (0-40); Blood Urea Nitrogen 24 mg/dL (8-23); C Reactive Protein 20.8 mg/L (0.0-4.9); Calcium 9.1 mg/dL (8.5-10.5); Carbon Dioxide 24 mmol/L (22-29); Chloride 103 mmol/L (98-107); Creatinine Clr Calc Pharmacy 90.8733; Globulin 2.9 g/dL (1.3-4.6); Glomerular Filtration Rate 134.4 mL/min (90-130); Glucose 196 mg/dL (65-115); Osmolality Calculated 291 mOsm/kg (285-295); Sodium 136 mmol/L (136-145); Total Bilirubin 0.3 mg/dL (0.15-1.2); Total Protein 6.3 g/dL (6.6-8.7)
[2020-04-12 06:10] LABS: Procalcitonin 2.42 ng/mL (0-0.5)
[2020-04-12 06:23] LABS: Anion Gap 13.2 (5-19); Potassium 4.2 mmol/L (3.5-5.1)
[2020-04-12 06:24] LABS: Fibrinogen 598 mg/dL (174-498)
[2020-04-12 06:27] LABS: D Dimer 0.62 ug/mIFEU (0-0.59)
[2020-04-12 06:36] LABS: Ferritin 1451 ng/mL (30-400)
[2020-04-12 07:16] LABS: Lactate Dehydrogenase 299 U/L (135-225)
[2020-04-12 07:25] LABS: Glucose Point of Care 192 mg/dL (70-110)
[2020-04-12] MEDS: ascorbic acid 500 mg Tablet 1000 MG PO (07:58)
[2020-04-12] MEDS: cholecalciferol (vitamin D3) 1,000 unit Tablet 2000 UNIT PO (07:59)
[2020-04-12] MEDS: zinc gluconate 50 mg Tablet PO (07:59)
[2020-04-12] MEDS: amlodipine 10 mg Tablet PO (07:59)
[2020-04-12] MEDS: benzonatate 100 mg Capsule 200 MG PO ×3 (08:00→21:02)
[2020-04-12] MEDS: gabapentin 300 mg Capsule PO ×3 (08:00→21:03)
[2020-04-12] MEDS: famotidine 20 mg Tablet PO ×2 (08:00→17:42)
[2020-04-12] MEDS: dexamethasone 4 mg/mL INJ 6 MG IVP (08:00)
[2020-04-12] MEDS: montelukast sodium 10 mg Tablet PO (08:00)
[2020-04-12] MEDS: NON-FORMULARY MEDICATION (Magnesium 250 MG) 250 EACH PO ×2 (08:01→17:51)
[2020-04-12] MEDS: aspirin 81 mg Chew Tablet 162 MG PO (08:01)
[2020-04-12] MEDS: cetirizine 10 mg Tablet PO (08:01)
[2020-04-12] MEDS: metoprolol succinate ER (24 HR) 50 mg Tablet PO ×2 (08:01→18:00)
[2020-04-12] MEDS: tizanidine 4 mg Tablet PO ×2 (08:14→21:11)
[2020-04-12 11:13] LABS: Glucose Point of Care 380 mg/dL (70-110)
--- NOTE | 2020-04-12 13:16 | PM.PN ---
Subjective Subjective: Interval history: Weaned to room air at rest, hemodynamically stable, continued decrease in inflammatory markers. Had 400 mL urine output overnight. On day 3 of remdesivir. Has been ambulating in the hallway throughout the day, reports feeling well. Medications: Reviewed: Yes Medication Review Details: Active Medications Generic Name Dose Route Start Last Admin Trade Name Freq PRN Reason Stop Dose Admin Acetaminophen 650 mg 04/10/20 15:11 Tylenol PO Q6H PRN Mild/Mod Pain Or Temp >/= 101 Hydrocodone Bitart /Acetaminophen 1 tab 04/10/20 17:00 04/12/20 04:03 [place] 10-325 Mg PO 1 tab TID PRN Administration moderate to sever e pain Albuterol Sulfate 2 puff 04/10/20 16:58 04/12/20 08:57 Ventolin INHALATION 2 puff Q4H.RESPIRATORY P RN Administration SHORTNESS OF SEMAJ TH Amlodipine Besylat e 10 mg 04/11/20 09:00 04/12/20 07:59 Norvasc PO 10 mg DAILY GISEL Administration Ascorbic Acid 1,000 mg 04/11/20 09:00 04/12/20 07:58 Vitamin C PO 1,000 mg DAILY GISEL Administration Aspirin 162 mg 04/11/20 09:00 04/12/20 08:01 Aspirin Chewable PO 162 mg DAILY GISEL Administration Atorvastatin Calci um 40 mg 04/12/20 21:00 Lipitor PO BEDTIME GISEL Benzonatate 200 mg 04/10/20 21:00 04/12/20 08:00 Tessalon Pearls PO 200 mg TID GISEL Administration Cetirizine HCl 10 mg 04/11/20 09:00 04/12/20 08:01 Zyrtec PO 10 mg DAILY GISEL Administration Dexamethasone 6 mg 04/11/20 09:00 04/12/20 08:00 Decadron IVP 6 mg Q24H GISEL Administration Dextrose 25 ml 04/10/20 17:04 D50w IVP ONCE PRN hypoglycemia prot ocol Protocol Dextrose 50 ml 04/10/20 17:04 D50w IVP PRN PRN hypoglycemia prot ocol Protocol Enoxaparin Sodium 40 mg 04/10/20 17:00 04/11/20 16:12 Lovenox SUBCUT 40 mg Q24H GISEL Administration Famotidine 20 mg 04/11/20 09:00 04/12/20 08:00 Pepcid Tab PO 20 mg BID GISEL Administration Gabapentin 300 mg 04/10/20 21:00 04/12/20 08:00 Neurontin PO 300 mg TID GISEL Administration Glucagon 1 mg 04/10/20 17:04 Glucagen IM ONCE PRN Adult Acute Hypog lycemia Prot. Protocol remdesivir (EUA) 1 00 mg/ 100 mls @ 100 mls /hr 04/11/20 13:00 04/12/20 12:31 Sodium Chloride IV 04/14/20 13:59 100 mls/hr Q24H GISEL Administration Azithromycin 500 m g/ Sodium 250 mls @ 250 mls /hr 04/10/20 17:00 04/11/20 17:43 Chloride IV Infused Q24H GISEL Infusion Protocol Ceftriaxone Sodium 1,000 mg/ 50 mls @ 100 mls/ hr 04/10/20 17:00 04/11/20 17:28 Sodium Chloride IV Infused Q24H GISEL Infusion Protocol Dextrose 500 mls @ 100 mls /hr 04/10/20 17:04 D5w IV ONCE PRN Adult Acute Hypog lycemia Prot Protocol Insulin Aspart 0 unit 04/10/20 18:00 04/12/20 11:39 Novolog SUBCUT 12 unit WM&BEDTIME GISEL Administration Protocol Metoprolol Succina te 50 mg 04/10/20 18:00 04/12/20 08:01 Toprol Xl PO 50 mg BID GISEL Administration Montelukast Sodium 10 mg 04/11/20 09:00 04/12/20 08:00 Singulair PO 10 mg DAILY GISEL Administration Non-Formulary Medi cation 250 mg 04/10/20 18:00 04/12/20 08:01 Magnesium PO 250 mg BID GISEL Administration Ondansetron HCl 4 mg 04/10/20 15:11 04/10/20 17:00 Zofran IVP 4 mg Q6H PRN Administration NAUSEA AND VOMITI NG Tizanidine HCl 4 mg 04/10/20 17:00 04/12/20 08:14 Zanaflex PO 4 mg BID PRN Administration MUSCLE SPASMS Triamcinolone Acet onide 1 applic 04/10/20 17:00 Triamcinolone 0. 1% Cream TOPICAL BID PRN Skin Irritation Vitamin D 2,000 unit 04/11/20 09:00 04/12/20 07:59 Vitamin D3 PO 2,000 unit DAILY GISEL Administration Zinc Gluconate 50 mg 04/11/20 09:00 04/12/20 07:59 Zinc Gluconate PO 50 mg DAILY GISEL Administration tramadol Allergy (Verified 04/10/20 09:46) itching Opioids - Morphine Analogues Adverse Reaction (Unknown, Verified 04/10/20 09:46) extreme headache Vitals/I&O/Wt Last Vital Signs Temp 97.3 F L 04/12/20 12:00 Pulse 74 04/12/20 12:00 Resp 21 H 04/12/20 12:00 BP 118/81 04/12/20 12:00 Pulse Ox 96 04/12/20 12:00 04/11/20 04/12/20 04/12/20 22:59 06:59 14:59 Intake Total 740 / 2640 250 / 2890 960 / 960 Output Total 200 / 1075 200 / 1275 300 / 300 Balance 540 / 1565 50 / 1615 660 / 660 Weight last 48 hrs Weight 76.657 kg Weight 76.884 kg Physical Exam Const: COMMON NORMALS: no acute distress, patient oriented x3 and alert GENERAL APPEARANCE: cooperative and comfortable ORIENTATION/CONSCIOUSNESS: Yes awake OTHER: -less ill-appearing HENMT: COMMON NORMALS: normocephalic, atraumatic, hearing grossly normal bilaterally and moist oral mucous membranes HEAD & SCALP: normocephalic and atraumatic Eye: COMMON NORMALS: Equal, round and reactive pupils present, EOMs intact bilaterally and conjunctivae normal CONJUNCTIVA: Yes conjunctivae normal PUPIL: Yes Equal, round and reactive pupils present Neck/C-Spine: COMMON NORMALS: full ROM GENERAL: Yes normal visual inspection and Yes trachea midline Resp: COMMON NORMALS: normal respiratory effort, No retractions and No use of accessory muscles EFFORT & INSPECTION: Yes symmetric chest movement and Yes tachypneic OTHER: -on RA at rest -Diminished though symmetrical air entry bilaterally; air entry is improving Cardio: COMMON NORMALS: regular rate, regular rhythm, S1 normal heart sound present, S2 normal heart sound present and No murmurs present (Cardio) RATE: regular rate RHYTHM: regular rhythm HEART SOUNDS: S1 normal heart sound present and S2 normal heart sound present GI: COMMON NORMALS: Normal to inspection, nondistended, normoactive bowel sounds present, Soft to palpation and non-tender INSPECTION: Yes central obesity PALPATION: Yes Soft to palpation Extremity: COMMON NORMALS: normal to inspection, full ROM and no clubbing, cyanosis or edema; negative for no pedal edema Neuro: COMMON NORMALS: patient oriented x3, moves all extremities, no focal motor deficits, no sensory deficits noted and gait normal SENSORIUM/ORIENTATION: Yes alert Psych: COMMON NORMALS: mental status grossly normal, Normal thought process present, cooperative, normal affect and speech normal SPEECH: Yes normal speech THOUGHT PROCESS: Normal thought process present Skin: COMMON NORMALS: no rashes or lesions noted, no jaundice, no petechiae and no mottling GENERAL SKIN EXAM: no rashes or lesions noted Data : 04/12/20 04:00 04/12/20 04:00 Micro: Microbiology 04/10/20 12:21 Gram Stain - Final Sputum - Expectorated Sputum Sputum Culture - Preliminary 04/10/20 10:15 Blood Culture - Preliminary Blood NEGATIVE TO DATE 04/10/20 10:10 Blood Culture - Preliminary Blood NEGATIVE TO DATE A&P Assessment and plan (1) Pneumonia due to COVID-19 virus: -Has been COVID-19 positive for several days with gradually worsening symptoms (test on 04/03) particularly with respect to shortness of breath, persistent cough, diarrhea, decreased appetite and oral intake -Not oxygen dependent at baseline, wean as tolerated -continue to monitor respiratory status -continue to monitor vital signs -Telemetry monitoring -Chest x-ray consistent with left-sided pneumonia -continue dexamethasone and remdesivir (day 3) -Noted elevated inflammatory markers including procalcitonin; trend down -on empiric antibiotic therapy -blood cx: prelim negative -sputum cx prelim normal blanca, gram stain polymicrobial -negative influenza, bacterial antigens, Legionella -supportive care including zinc, vitamin C, IS, antitussives, breathing treatments as needed Status: Acute (2) Multilevel degenerative disc disease: -continue pain meds -follows up at pain management clinic Status: Chronic (3) Mixed hyperlipidemia: -continue statin Status: Chronic (4) Type 2 diabetes mellitus: -A1c at goal (6.8) -Accu-Cheks, ISS -Hold oral hypoglycemic agents -Hypoglycemic precautions -Consistent carb diet as tolerated -noted hyperglycemia secondary to steroid use Status: Chronic (5) Essential hypertension: -continue to monitor vital signs -continue oral antihypertensives Status: Chronic Additional A&P Information -hx of prostate cancer s/p prostatectomy; f/u with Dr. Veliz -GI ppx with famotidine -DVT ppx with lovenox -Dispo: home -Code status: FULL code -prefers to update his family himself Attestations Medical Necessity Statement*: Patient requires hospitalization for continued management of COVID-19 pneumonia, on antibiotic and antiviral treatment. Time Spent in Patient Care: 16 - 35 minutes (>than 50% of time spent in counselling and/or direct pt care on unit). Coding Level of Care Code Acute Pst Specialist for g Fwd Exam Comprehensive Diagnoses Pneumonia due to COVID-19 virus U07.1; J12.89 Multilevel degenerative disc disease M53.9 Mixed hyperlipidemia E78.2 Type 2 diabetes mellitus E11.9 Essential hypertension I10
[2020-04-12 16:16] LABS: Glucose Point of Care 299 mg/dL (70-110)
[2020-04-12] MEDS: azithromycin 500 MG in sodium chloride 0.9% 250 ML 250 MG IV (17:40)
[2020-04-12] MEDS: cefTRIAXone 1,000 MG in sodium chloride 0.9% (plus) 50 ML 100 MG IV (17:42)
[2020-04-12] MEDS: enoxaparin 40 mg/0.4 mL Syringe SUBCUT (17:42)
--- NOTE | 2020-04-12 19:49 | PC.NURSE ---
ASSUMED CARE OF PT. PT IS RESTING UP IN CHAIR AT THIS TIME. PT STATES THAT THEY ARE HAVING DIFFICULTIES TAKING A DEEP BREATH. PT ATTEMPTED TO BREATHE DEEPLY THEY HAD A DRY NON-PRODUCTIVE COUGH. PT ATTRIBUTES THIS TO COVID. PT DENIES PAIN AT THIS TIME. WILL CONTINUE TO MONITOR.
[2020-04-12 20:21] LABS: Glucose Point of Care 315 mg/dL (70-110)
[2020-04-12] MEDS: atorvastatin 40 mg Tablet PO (21:03)
[2020-04-13] VITALS (26 sets, daily range): BP systolic 121–163; BP diastolic 68–90; PULSE 53–96; RESP 0–33; TEMP 36.4–36.9; O2SAT 90–99
--- NOTE | 2020-04-13 06:02 | PC.NURSE ---
PT IS RESTING IN BED AT THIS TIME. PT DENIES PAIN. HAS 0 C/O AT THIS TIME. WILL CONTINUE TO MONITOR.
[2020-04-13 06:33] LABS: Fibrinogen 458 mg/dL (174-498)
[2020-04-13 06:37] LABS: D Dimer 0.49 ug/mIFEU (0-0.59)
[2020-04-13 06:39] LABS: Glucose Point of Care 195 mg/dL (70-110)
[2020-04-13 08:24] LABS: C Reactive Protein 10.8 mg/L (0.0-4.9)
[2020-04-13 08:32] LABS: Procalcitonin 0.96 ng/mL (0-0.5)
[2020-04-13 08:43] LABS: Lactate Dehydrogenase 214 U/L (135-225)
[2020-04-13 08:58] LABS: Ferritin 1306 ng/mL (30-400)
[2020-04-13] MEDS: ascorbic acid 500 mg Tablet 1000 MG PO (09:03)
[2020-04-13] MEDS: amlodipine 10 mg Tablet PO (09:04)
[2020-04-13] MEDS: cholecalciferol (vitamin D3) 1,000 unit Tablet 2000 UNIT PO (09:04)
[2020-04-13] MEDS: montelukast sodium 10 mg Tablet PO (09:04)
[2020-04-13] MEDS: benzonatate 100 mg Capsule 200 MG PO ×3 (09:04→20:44)
[2020-04-13] MEDS: gabapentin 300 mg Capsule PO ×3 (09:04→20:44)
[2020-04-13] MEDS: zinc gluconate 50 mg Tablet PO (09:04)
[2020-04-13] MEDS: HYDROcodone-acetaminophen 10-325 mg Tablet 1 TAB PO ×2 (09:04→20:44)
[2020-04-13] MEDS: famotidine 20 mg Tablet PO ×2 (09:04→17:05)
[2020-04-13] MEDS: aspirin 81 mg Chew Tablet 162 MG PO (09:05)
[2020-04-13] MEDS: dexamethasone 4 mg/mL INJ 6 MG IVP (09:05)
[2020-04-13] MEDS: NON-FORMULARY MEDICATION (Magnesium 250 MG) 250 EACH PO ×2 (09:05→17:10)
[2020-04-13] MEDS: cetirizine 10 mg Tablet PO (09:05)
[2020-04-13] MEDS: metoprolol succinate ER (24 HR) 50 mg Tablet PO ×2 (09:05→17:10)
[2020-04-13] MEDS: albuterol 8 gm MDI 2 PUFF INHALATION (10:02)
--- NOTE | 2020-04-13 10:04 | PC.SOCIAL ---
IMM Updated Updated pt, via phone, Pg 2 IMM. No questions voiced. Signed, dated, & timed copy in chart.
[2020-04-13 11:42] LABS: Glucose Point of Care 321 mg/dL (70-110)
[2020-04-13] MEDS: tizanidine 4 mg Tablet PO (12:28)
--- NOTE | 2020-04-13 14:27 | PM.PN ---
Subjective Subjective: Interval history: On RA, hemodynamically stable, afebrile, had 700 mL urine output overnight, ambulatory. On day 4 of remdesevir. Inflammatory markers continue to improve. Has been ambulating in the hallway at least once today, with 2 L nasal cannula for oxygen support. He is in good spirits. Medications: Reviewed: Yes Medication Review Details: Active Medications Generic Name Dose Route Start Last Admin Trade Name Freq PRN Reason Stop Dose Admin Acetaminophen 650 mg 04/10/20 15:11 Tylenol PO Q6H PRN Mild/Mod Pain Or Temp >/= 101 Hydrocodone Bitart /Acetaminophen 1 tab 04/10/20 17:00 04/13/20 09:04 [place] 10-325 Mg PO 1 tab TID PRN Administration moderate to sever e pain Albuterol Sulfate 2 puff 04/10/20 16:58 04/13/20 10:02 Ventolin INHALATION 2 puff Q4H.RESPIRATORY P RN Administration SHORTNESS OF SEMAJ TH Amlodipine Besylat e 10 mg 04/11/20 09:00 04/13/20 09:04 Norvasc PO 10 mg DAILY GISEL Administration Ascorbic Acid 1,000 mg 04/11/20 09:00 04/13/20 09:03 Vitamin C PO 1,000 mg DAILY GISEL Administration Aspirin 162 mg 04/11/20 09:00 04/13/20 09:05 Aspirin Chewable PO 162 mg DAILY GISEL Administration Atorvastatin Calci um 40 mg 04/12/20 21:00 04/12/20 21:03 Lipitor PO 40 mg BEDTIME GISEL Administration Benzonatate 200 mg 04/10/20 21:00 04/13/20 09:04 Tessalon Pearls PO 200 mg TID GISEL Administration Cetirizine HCl 10 mg 04/11/20 09:00 04/13/20 09:05 Zyrtec PO 10 mg DAILY GISEL Administration Dexamethasone 6 mg 04/11/20 09:00 04/13/20 09:05 Decadron IVP 6 mg Q24H GISEL Administration Dextrose 25 ml 04/10/20 17:04 D50w IVP ONCE PRN hypoglycemia prot ocol Protocol Dextrose 50 ml 04/10/20 17:04 D50w IVP PRN PRN hypoglycemia prot ocol Protocol Enoxaparin Sodium 40 mg 04/10/20 17:00 04/12/20 17:42 Lovenox SUBCUT 40 mg Q24H GISEL Administration Famotidine 20 mg 04/11/20 09:00 04/13/20 09:04 Pepcid Tab PO 20 mg BID GISEL Administration Gabapentin 300 mg 04/10/20 21:00 04/13/20 09:04 Neurontin PO 300 mg TID GISEL Administration Glucagon 1 mg 04/10/20 17:04 Glucagen IM ONCE PRN Adult Acute Hypog lycemia Prot. Protocol remdesivir (EUA) 1 00 mg/ 100 mls @ 100 mls /hr 04/11/20 13:00 04/13/20 12:59 Sodium Chloride IV 04/14/20 13:59 100 mls/hr Q24H GISEL Administration Azithromycin 500 m g/ Sodium 250 mls @ 250 mls /hr 04/10/20 17:00 04/13/20 07:09 Chloride IV Infused Q24H GISEL Infusion Protocol Ceftriaxone Sodium 1,000 mg/ 50 mls @ 100 mls/ hr 04/10/20 17:00 04/13/20 07:08 Sodium Chloride IV Infused Q24H GISEL Infusion Protocol Dextrose 500 mls @ 100 mls /hr 04/10/20 17:04 D5w IV ONCE PRN Adult Acute Hypog lycemia Prot Protocol Insulin Aspart 0 unit 04/10/20 18:00 04/13/20 12:28 Novolog SUBCUT 12 unit WM&BEDTIME GISEL Administration Protocol Metoprolol Succina te 50 mg 04/10/20 18:00 04/13/20 09:05 Toprol Xl PO 50 mg BID GISEL Administration Montelukast Sodium 10 mg 04/11/20 09:00 04/13/20 09:04 Singulair PO 10 mg DAILY GISEL Administration Non-Formulary Medi cation 250 mg 04/10/20 18:00 04/13/20 09:05 Magnesium PO 250 mg BID GISEL Administration Ondansetron HCl 4 mg 04/10/20 15:11 04/10/20 17:00 Zofran IVP 4 mg Q6H PRN Administration NAUSEA AND VOMITI NG Tizanidine HCl 4 mg 04/10/20 17:00 04/13/20 12:28 Zanaflex PO 4 mg BID PRN Administration MUSCLE SPASMS Triamcinolone Acet onide 1 applic 04/10/20 17:00 Triamcinolone 0. 1% Cream TOPICAL BID PRN Skin Irritation Vitamin D 2,000 unit 04/11/20 09:00 04/13/20 09:04 Vitamin D3 PO 2,000 unit DAILY GISEL Administration Zinc Gluconate 50 mg 04/11/20 09:00 04/13/20 09:04 Zinc Gluconate PO 50 mg DAILY GISEL Administration tramadol Allergy (Verified 04/10/20 09:46) itching Opioids - Morphine Analogues Adverse Reaction (Unknown, Verified 04/10/20 09:46) extreme headache Vitals/I&O/Wt Last Vital Signs Temp 97.9 F 04/13/20 12:00 Pulse 71 04/13/20 14:00 Resp 22 H 04/13/20 14:00 BP 129/81 04/13/20 14:00 Pulse Ox 92 04/13/20 14:00 04/12/20 04/13/20 04/13/20 22:59 06:59 14:59 Intake Total 240 / 1300 1620 / 1620 Output Total 575 / 875 300 / 1175 175 / 175 Balance -335 / 425 -300 / 125 1445 / 1445 Weight last 48 hrs Weight 77.065 kg Weight 76.657 kg Physical Exam Const: COMMON NORMALS: no acute distress, patient oriented x3 and alert GENERAL APPEARANCE: cooperative, comfortable and ill appearing ORIENTATION/CONSCIOUSNESS: Yes awake HENMT: COMMON NORMALS: normocephalic, atraumatic, hearing grossly normal bilaterally and moist oral mucous membranes HEAD & SCALP: normocephalic and atraumatic Eye: COMMON NORMALS: Equal, round and reactive pupils present, EOMs intact bilaterally and conjunctivae normal CONJUNCTIVA: Yes conjunctivae normal PUPIL: Yes Equal, round and reactive pupils present Neck/C-Spine: COMMON NORMALS: full ROM GENERAL: Yes normal visual inspection and Yes trachea midline Resp: COMMON NORMALS: normal respiratory effort, No retractions and No use of accessory muscles EFFORT & INSPECTION: Yes symmetric chest movement and Yes tachypneic OTHER: -on RA at rest -Diminished though symmetrical air entry bilaterally; air entry is improving Cardio: COMMON NORMALS: regular rate, regular rhythm, S1 normal heart sound present, S2 normal heart sound present and No murmurs present (Cardio) RATE: regular rate RHYTHM: regular rhythm HEART SOUNDS: S1 normal heart sound present and S2 normal heart sound present GI: COMMON NORMALS: Normal to inspection, nondistended, normoactive bowel sounds present, Soft to palpation and non-tender INSPECTION: Yes central obesity PALPATION: Yes Soft to palpation Extremity: COMMON NORMALS: normal to inspection, full ROM and no clubbing, cyanosis or edema; negative for no pedal edema Neuro: COMMON NORMALS: patient oriented x3, moves all extremities, no focal motor deficits, no sensory deficits noted and gait normal SENSORIUM/ORIENTATION: Yes alert Psych: COMMON NORMALS: mental status grossly normal, Normal thought process present, cooperative, normal affect and speech normal SPEECH: Yes normal speech THOUGHT PROCESS: Normal thought process present Skin: COMMON NORMALS: no rashes or lesions noted, no jaundice, no petechiae and no mottling GENERAL SKIN EXAM: no rashes or lesions noted Data : 04/12/20 04:00 04/12/20 04:00 Micro: Microbiology 04/10/20 12:21 Gram Stain - Final Sputum - Expectorated Sputum Sputum Culture - Final A&P Assessment and plan (1) Pneumonia due to COVID-19 virus: -Has been COVID-19 positive for several days with gradually worsening symptoms (test on 04/03) particularly with respect to shortness of breath, persistent cough, diarrhea, decreased appetite and oral intake -Not oxygen dependent at baseline, wean as tolerated -continue to monitor respiratory status -continue to monitor vital signs -Telemetry monitoring -Chest x-ray consistent with left-sided pneumonia -continue dexamethasone and remdesivir (day 4) -Noted elevated inflammatory markers including procalcitonin; trending down -on empiric antibiotic therapy -blood cx: prelim negative -sputum cx prelim normal blanca, gram stain polymicrobial -negative influenza, bacterial antigens, Legionella -supportive care including zinc, vitamin C, IS, antitussives, breathing treatments as needed Status: Acute (2) Multilevel degenerative disc disease: -continue pain meds -follows up at pain management clinic Status: Chronic (3) Mixed hyperlipidemia: -continue statin Status: Chronic (4) Type 2 diabetes mellitus: -A1c at goal (6.8) -Accu-Cheks, ISS -Hold oral hypoglycemic agents -Hypoglycemic precautions -Consistent carb diet as tolerated -noted hyperglycemia secondary to steroid use Status: Chronic (5) Essential hypertension: -continue to monitor vital signs -continue oral antihypertensives Status: Chronic Additional A&P Information -hx of prostate cancer s/p prostatectomy; f/u with Dr. Veliz -GI ppx with famotidine -DVT ppx with lovenox -Dispo: home -Code status: FULL code -prefers to update his family himself Attestations Medical Necessity Statement*: Patient requires hospitalization for continued treatment of COVID-19 pneumonia, on antibiotic and antiviral treatment. Time Spent in Patient Care: 16 - 35 minutes (>than 50% of time spent in counselling and/or direct pt care on unit). Coding Level of Care Code Acute [employer] Guidance Counselor for g Fwd Exam Comprehensive Diagnoses Pneumonia due to COVID-19 virus U07.1; J12.89 Multilevel degenerative disc disease M53.9 Mixed hyperlipidemia E78.2 Type 2 diabetes mellitus E11.9 Essential hypertension I10
[2020-04-13 16:34] LABS: Glucose Point of Care 340 mg/dL (70-110)
[2020-04-13] MEDS: cefTRIAXone 1,000 MG in sodium chloride 0.9% (plus) 50 ML 100 MG IV (17:05)
[2020-04-13] MEDS: enoxaparin 40 mg/0.4 mL Syringe SUBCUT (17:05)
[2020-04-13] MEDS: azithromycin 500 MG in sodium chloride 0.9% 250 ML 250 MG IV (17:47)
[2020-04-13] MEDS: atorvastatin 40 mg Tablet PO (20:44)
[2020-04-13 20:59] LABS: Glucose Point of Care 249 mg/dL (70-110)
[2020-04-14] VITALS (29 sets, daily range): BP systolic 127–154; BP diastolic 69–103; PULSE 50–100; RESP 12–33; TEMP 36.8–37.2; O2SAT 77–98
[2020-04-14 07:40] LABS: Glucose Point of Care 183 mg/dL (70-110)
[2020-04-14] MEDS: aspirin 81 mg Chew Tablet 162 MG PO (07:59)
[2020-04-14] MEDS: ascorbic acid 500 mg Tablet 1000 MG PO (07:59)
[2020-04-14] MEDS: benzonatate 100 mg Capsule 200 MG PO ×3 (07:59→22:15)
[2020-04-14] MEDS: amlodipine 10 mg Tablet PO (07:59)
[2020-04-14] MEDS: gabapentin 300 mg Capsule PO ×3 (08:00→22:16)
[2020-04-14] MEDS: cetirizine 10 mg Tablet PO (08:00)
[2020-04-14] MEDS: metoprolol succinate ER (24 HR) 50 mg Tablet PO ×2 (08:00→17:37)
[2020-04-14] MEDS: NON-FORMULARY MEDICATION (Magnesium 250 MG) 250 EACH PO ×2 (08:00→17:35)
[2020-04-14] MEDS: zinc gluconate 50 mg Tablet PO (08:00)
[2020-04-14] MEDS: montelukast sodium 10 mg Tablet PO (08:00)
[2020-04-14] MEDS: cholecalciferol (vitamin D3) 1,000 unit Tablet 2000 UNIT PO (08:00)
[2020-04-14] MEDS: famotidine 20 mg Tablet PO ×2 (08:00→17:36)
[2020-04-14] MEDS: albuterol 8 gm MDI 2 PUFF INHALATION ×3 (09:14→21:29)
[2020-04-14] MEDS: tizanidine 4 mg Tablet PO ×2 (09:15→22:52)
[2020-04-14] MEDS: HYDROcodone-acetaminophen 10-325 mg Tablet 1 TAB PO ×2 (09:22→22:51)
[2020-04-14] MEDS: dexamethasone 4 mg/mL INJ 6 MG IVP (09:29)
[2020-04-14 11:28] LABS: Glucose Point of Care 252 mg/dL (70-110)
--- NOTE | 2020-04-14 12:54 | P.PN_ITS ---
Subjective Subjective: Interval history: Hemodynamically stable with some noted intermittent tachypnea and bradycardia, on 2 L nasal cannula, had 300 mL urine output overnight. On day 5 of remdesivir. Resting quietly in bed, no apparent distress, remains on 2 L NC. Medications: Reviewed: Yes Medication Review Details: Active Medications Generic Name Dose Route Start Last Admin Trade Name Freq PRN Reason Stop Dose Admin Acetaminophen 650 mg 04/10/20 15:11 Tylenol PO Q6H PRN Mild/Mod Pain Or Temp >/= 101 Hydrocodone Bitart /Acetaminophen 1 tab 04/10/20 17:00 04/14/20 09:22 [place] 10-325 Mg PO 1 tab TID PRN Administration moderate to sever e pain Albuterol Sulfate 2 puff 04/10/20 16:58 04/14/20 09:14 Ventolin INHALATION 2 puff Q4H.RESPIRATORY P RN Administration SHORTNESS OF SEMAJ TH Amlodipine Besylat e 10 mg 04/11/20 09:00 04/14/20 07:59 Norvasc PO 10 mg DAILY GISEL Administration Ascorbic Acid 1,000 mg 04/11/20 09:00 04/14/20 07:59 Vitamin C PO 1,000 mg DAILY GISEL Administration Aspirin 162 mg 04/11/20 09:00 04/14/20 07:59 Aspirin Chewable PO 162 mg DAILY GISEL Administration Atorvastatin Calci um 40 mg 04/12/20 21:00 04/13/20 20:44 Lipitor PO 40 mg BEDTIME GISEL Administration Benzonatate 200 mg 04/10/20 21:00 04/14/20 07:59 Tessalon Pearls PO 200 mg TID GISEL Administration Cetirizine HCl 10 mg 04/11/20 09:00 04/14/20 08:00 Zyrtec PO 10 mg DAILY GISEL Administration Dexamethasone 6 mg 04/11/20 09:00 04/14/20 09:29 Decadron IVP 6 mg Q24H GISEL Administration Dextrose 25 ml 04/10/20 17:04 D50w IVP ONCE PRN hypoglycemia prot ocol Protocol Dextrose 50 ml 04/10/20 17:04 D50w IVP PRN PRN hypoglycemia prot ocol Protocol Enoxaparin Sodium 40 mg 04/10/20 17:00 04/13/20 17:05 Lovenox SUBCUT 40 mg Q24H GISEL Administration Famotidine 20 mg 04/11/20 09:00 04/14/20 08:00 Pepcid Tab PO 20 mg BID GISEL Administration Gabapentin 300 mg 04/10/20 21:00 04/14/20 08:00 Neurontin PO 300 mg TID GISEL Administration Glucagon 1 mg 04/10/20 17:04 Glucagen IM ONCE PRN Adult Acute Hypog lycemia Prot. Protocol remdesivir (EUA) 1 00 mg/ 100 mls @ 100 mls /hr 04/11/20 13:00 04/13/20 15:42 Sodium Chloride IV 04/14/20 13:59 Infused Q24H GISEL Infusion Azithromycin 500 m g/ Sodium 250 mls @ 250 mls /hr 04/10/20 17:00 04/13/20 17:47 Chloride IV 250 mls/hr Q24H GISEL Administration Protocol Ceftriaxone Sodium 1,000 mg/ 50 mls @ 100 mls/ hr 04/10/20 17:00 04/13/20 17:05 Sodium Chloride IV 100 mls/hr Q24H GISEL Administration Protocol Dextrose 500 mls @ 100 mls /hr 04/10/20 17:04 D5w IV ONCE PRN Adult Acute Hypog lycemia Prot Protocol Insulin Aspart 0 unit 04/10/20 18:00 04/14/20 12:43 Novolog SUBCUT 8 unit WM&BEDTIME GISEL Administration Protocol Metoprolol Succina te 50 mg 04/10/20 18:00 04/14/20 08:00 Toprol Xl PO 50 mg BID GISEL Administration Montelukast Sodium 10 mg 04/11/20 09:00 04/14/20 08:00 Singulair PO 10 mg DAILY GISEL Administration Non-Formulary Medi cation 250 mg 04/10/20 18:00 04/14/20 08:00 Magnesium PO 250 mg BID GISEL Administration Ondansetron HCl 4 mg 04/10/20 15:11 04/10/20 17:00 Zofran IVP 4 mg Q6H PRN Administration NAUSEA AND VOMITI NG Tizanidine HCl 4 mg 04/10/20 17:00 04/14/20 09:15 Zanaflex PO 4 mg BID PRN Administration MUSCLE SPASMS Triamcinolone Acet onide 1 applic 04/10/20 17:00 Triamcinolone 0. 1% Cream TOPICAL BID PRN Skin Irritation Vitamin D 2,000 unit 10/29/20 09:00 04/14/20 08:00 Vitamin D3 PO 2,000 unit DAILY GISEL Administration Zinc Gluconate 50 mg 04/11/20 09:00 04/14/20 08:00 Zinc Gluconate PO 50 mg DAILY GISEL Administration tramadol Allergy (Verified 04/10/20 09:46) itching Opioids - Morphine Analogues Adverse Reaction (Unknown, Verified 04/10/20 09:46) extreme headache Vitals/I&O/Wt Last Vital Signs Temp 98.2 F 04/14/20 08:00 Pulse 77 04/14/20 10:00 Resp 28 H 04/14/20 10:00 BP 128/85 04/14/20 10:00 Pulse Ox 95 04/14/20 10:00 04/13/20 04/14/20 04/14/20 23:59 06:59 14:59 Intake Total 480 / 480 Output Total 350 / 350 Balance 130 / 130 Weight last 48 hrs Weight 77.337 kg Weight 77.065 kg Physical Exam Const: COMMON NORMALS: no acute distress, patient oriented x3 and alert GENERAL APPEARANCE: cooperative and comfortable ORIENTATION/CONSCIOUSNESS: Yes awake HENMT: COMMON NORMALS: normocephalic, atraumatic, hearing grossly normal bilaterally and moist oral mucous membranes HEAD & SCALP: normocephalic and atraumatic Eye: COMMON NORMALS: Equal, round and reactive pupils present, EOMs intact bilaterally and conjunctivae normal CONJUNCTIVA: Yes conjunctivae normal PUPIL: Yes Equal, round and reactive pupils present Neck/C-Spine: COMMON NORMALS: full ROM GENERAL: Yes normal visual inspection and Yes trachea midline Resp: COMMON NORMALS: normal respiratory effort, No retractions and No use of accessory muscles EFFORT & INSPECTION: Yes symmetric chest movement and Yes tachypneic OTHER: -on RA at rest, 2 L with activity -Diminished though symmetrical air entry bilaterally; air entry is improving consistently Cardio: COMMON NORMALS: regular rate, regular rhythm, S1 normal heart sound present, S2 normal heart sound present and No murmurs present (Cardio) RATE: regular rate RHYTHM: regular rhythm HEART SOUNDS: S1 normal heart sound present and S2 normal heart sound present GI: COMMON NORMALS: Normal to inspection, nondistended, normoactive bowel sounds present, Soft to palpation and non-tender INSPECTION: Yes central obes ity PALPATION: Yes Soft to palpation Extremity: COMMON NORMALS: normal to inspection, full ROM and no clubbing, cyanosis or edema; negative for no pedal edema Neuro: COMMON NORMALS: patient oriented x3, moves all extremities, no focal motor deficits, no sensory deficits noted and gait normal SENSORIU M/ORIENTATION: Yes alert Psych: COMMON NORMALS: mental status grossly normal, Normal thought process present, cooperative, normal affect and speech normal SPEECH: Yes normal speech THOUGHT PROCESS: Normal thought process present Skin: COMMON NORMALS: no rashes or lesions noted, no jaundice, no petechiae and no mottling GENERAL SKIN EXAM: no rashes or lesions noted Data : 04/12/20 04:00 04/12/20 04:00 A&P Assessment and plan (1) Pneumonia due to COVID-19 virus: -Has been COVID-19 positive for several days with gradually worsening symptoms (test on 04/03) particularly with respect to shortness of breath, persistent cough, diarrhea, decreased appetite and oral intake -Not oxygen dependent at baseline, wean as tolerated, home oxygen evaluation prior to d/c if appropriate -continue to monitor respiratory status -continue to monitor vital signs -Telemetry monitoring -Chest x-ray consistent with left-sided pneumonia -continue dexamethasone and remdesivir (day 5) -Noted elevated inflammatory markers including procalcitonin; almost normalized or otherwise trending down -on empiric antibiotic therapy -blood cx: prelim negative -sputum cx prelim normal blanca, gram stain polymicrobial -negative influenza, bacterial antigens, Legionella -supportive care including zinc, vitamin C, IS, antitussives, breathing treatments as needed Status: Acute (2) Multilevel degenerative disc disease: -continue pain meds -follows up at pain management clinic Status: Chronic (3) Mixed hyperlipidemia: -continue statin Status: Chronic (4) Type 2 diabetes mellitus: -A1c at goal (6.8) -Accu-Cheks, ISS -Hold oral hypoglycemic agents -Hypoglycemic precautions -Consistent carb diet as tolerated -noted hyperglycemia secondary to steroid use Status: Chronic (5) Essential hypertension: -continue to monitor vital signs -continue oral antihypertensives Status: Chronic Additional A&P Information -hx of prostate cancer s/p prostatectomy; f/u with Dr. Veliz -GI ppx with famotidine -DVT ppx with lovenox -Dispo: home -Code status: FULL code -prefers to update his family himself -anticipate discharge tomorrow if continued stability Attestations Medical Necessity Statement*: Patient requires hospitalization for continued management of COVID-19 pneumonia, completing course of antiviral treatment. Time Spent in Patient Care: 16 - 35 minutes (>than 50% of time spent in counselling and/or direct pt care on unit) . Coding Level of Care Code Acute Record Tabulating Clerk for Chg Fwd Diagnoses Pneumonia due to COVID-19 virus U07.1; J12.89 Multilevel degenerative disc disease M53.9 Mixed hyperlipidemia E78.2 Type 2 diabetes mellitus E11.9 Essential hypertension I10
[2020-04-14 15:56] LABS: Add Urine Microscopic? NO
[2020-04-14 16:14] LABS: Bilirubin Urine Neg (Negative); Blood Urine Neg (Negative); Glucose Urine UA 4+ (Normal); Ketones Urine Negative (Negative); Leukocyte Esterase Urine Negative (Negative); Nitrate Urine Negative (Negative); Protein Urine Neg (Negative); Specific Gravity, Urine 1.015 (1.005-1.030); Urine Appearance Clear (CLEAR); Urine Color Straw (Yellow); Urobilinogen Urine Neg (Negative); pH Urine 6 (5-7)
[2020-04-14 16:46] LABS: Glucose Point of Care 313 mg/dL (70-110)
[2020-04-14] MEDS: cefTRIAXone 1,000 MG in sodium chloride 0.9% (plus) 50 ML 100 MG IV (17:35)
[2020-04-14] MEDS: enoxaparin 40 mg/0.4 mL Syringe SUBCUT (17:35)
[2020-04-14] MEDS: azithromycin 500 MG in sodium chloride 0.9% 250 ML 250 MG IV (17:35)
[2020-04-14 21:15] LABS: Glucose Point of Care 403 mg/dL (70-110)
[2020-04-14] MEDS: atorvastatin 40 mg Tablet PO (22:16)
[2020-04-15] VITALS (18 sets, daily range): BP systolic 121–164; BP diastolic 64–97; PULSE 51–90; RESP 11–32; TEMP 36.5–37.1; O2SAT 86–99
--- NOTE | 2020-04-15 00:01 | PC.NURSE ---
BLOOD SUGAR Patients evening blood sugar was 403. Physician notified of blood sugar. No new orders at this time, will recheck around 0130 to ensure patient is not remaining hyperglycemic.
--- NOTE | 2020-04-15 00:07 | PC.NURSE ---
CHRONIC PAIN Patient has chronic back pain. Patient explained to nurse that he takes norco and zanaflex at home prior to bedtime. [place] and zanaflex given and patient is resting quietly.
[2020-04-15 01:41] LABS: Glucose Point of Care 172 mg/dL (70-110)
[2020-04-15 04:24] LABS: Hematocrit 41.9 % (42.0-52.0); Hemoglobin 14.8 g/dL (11.7-16.6); Mean Corpuscular HGB Conc 35.3 g/dL (30.0-36.0); Mean Corpuscular Hemoglobin 30.6 pg (28.0-34.0); Mean Corpuscular Volume 86.6 fL (80-94); Platelet Count 353 10^3/cmm (130-400); Red Blood Count 4.84 10^6/uL (4.1-5.3); Red Cell Distribution Width 11.7 % (12.1-15.1); White Blood Count 10.1 10^3/uL (4.0-10.0)
[2020-04-15 04:46] LABS: Anion Gap 13.2 (5-19); Blood Urea Nitrogen 23 mg/dL (8-23); Calcium 8.7 mg/dL (8.5-10.5); Carbon Dioxide 29 mmol/L (22-29); Chloride 98 mmol/L (98-107); Glomerular Filtration Rate 165.9 mL/min (90-130); Glucose 180 mg/dL (65-115); Osmolality Calculated 290 mOsm/kg (285-295); Potassium 4.2 mmol/L (3.5-5.1); Sodium 136 mmol/L (136-145)
[2020-04-15 05:02] LABS: Total Cells Counted 100 (0-100)
[2020-04-15 05:07] LABS: Absolute Neutrophil 8.1 10^3/cmm (1.4-6.5); Band Neutrophils Absolute 0.1 10^3/cmm (0.0-1.2); Eosinophils 0 %; Lymphocytes 9 %; Monocytes Absolute 1.1 10^3/cmm (0.1-0.6); Platelet Estimate Normal (Normal); Segmented Neutrophils 79 %
[2020-04-15 05:08] LABS: Poikilocytosis 2+; Polychromasia 1+
[2020-04-15 07:26] LABS: Glucose Point of Care 168 mg/dL (70-110)
[2020-04-15] MEDS: ascorbic acid 500 mg Tablet 1000 MG PO (08:16)
[2020-04-15] MEDS: montelukast sodium 10 mg Tablet PO (08:17)
[2020-04-15] MEDS: famotidine 20 mg Tablet PO (08:17)
[2020-04-15] MEDS: amlodipine 10 mg Tablet PO (08:17)
[2020-04-15] MEDS: cholecalciferol (vitamin D3) 1,000 unit Tablet 2000 UNIT PO (08:17)
[2020-04-15] MEDS: gabapentin 300 mg Capsule PO ×2 (08:17→14:14)
[2020-04-15] MEDS: benzonatate 100 mg Capsule 200 MG PO ×2 (08:17→14:14)
[2020-04-15] MEDS: zinc gluconate 50 mg Tablet PO (08:17)
[2020-04-15] MEDS: NON-FORMULARY MEDICATION (Magnesium 250 MG) 250 EACH PO (08:18)
[2020-04-15] MEDS: cetirizine 10 mg Tablet PO (08:18)
[2020-04-15] MEDS: aspirin 81 mg Chew Tablet 162 MG PO (08:18)
[2020-04-15] MEDS: metoprolol succinate ER (24 HR) 50 mg Tablet PO (08:18)
[2020-04-15] MEDS: dexamethasone 4 mg/mL INJ 6 MG IVP (08:20)
[2020-04-15] MEDS: albuterol 8 gm MDI 2 PUFF INHALATION (08:27)
--- NOTE | 2020-04-15 09:03 | DCPLANNER ---
Left message for pt on his voice mail as he didn't answer the phone, regarding his IM.
--- NOTE | 2020-04-15 10:21 | P.DS_ITS ---
Discharge Providers Date of Admission: 04/10/20 13:04 Date of Discharge: April 15, 2020 Attending Provider at Admission: Hilda Yoon MD Attending Provider at Discharge: Benja Forrester Primary Care Provider: JARROD Seay Diagnoses at Discharge Discharge Diagnosis (1) Pneumonia due to COVID-19 virus: Status: Acute (2) Multilevel degenerative disc disease: Status: Chronic (3) Mixed hyperlipidemia: Status: Chronic (4) Type 2 diabetes mellitus: Status: Chronic (5) Essential hypertension: Status: Chronic Reason for Visit Reason for Visit: WORSENING SYMPTOMS, COVID POSITIVE Hospital Course Discharge Summary: Very pleasant 69-year-old gentleman with history of diabetes, HTN, HLD, and a number of other comorbidities, not normally on oxygen was admitted due to worsening shortness of breath, persistent dry cough, fever found to have COVID-19 severe pneumonia with elevated inflammatory markers, only minimally elevated D-dimer up to 0.92 highest while in hospital, requiring 2 L of oxygen by nasal cannula. Rapid influenza was negative. Urine bacterial ant igens including Legionella negative. Sputum culture growing moderate normal blanca after 2 days. Final culture. Blood culture negative preliminary. Completed treatment with remdesivir and dexamethasone. He is symptomatically doing much better. He says that he has regained his appetite. He has been up and making occasional trips in his room unassisted. As he is feeling much better he feels ready to return home. On home oxygen evaluation he is still needing 2 L of oxygen at rest, 4 L with exertion. This has been ordered and is being set up for him. He was receiving ceftriaxone azithromycin in the hospital for possible superimposed bacterial infection. Will complete course with Levaquin on discharge. We discussed continuation of isolation as below, including isolation at home as his has not had coronavirus infection. Please set up a 48-hour telehealth visit with him if possible, otherwise please follow-up in office after COVID-19 pneumonia, consider follow-up imaging for r esolution of left lower lobe infiltrate, and resuming follow-up with his other chronic conditions. Physical Exam Const: COMMON NORMALS: no acute distress and patient oriented x3 HENMT: COMMON NORMALS: oropharynx normal Neck/C-Spine: COMMON NORMALS: no JVD Resp: COMMON NORMALS: normal respiratory effort and clear to auscultation b ilaterally AUSCULTATION: clear to auscultation bilaterally OTHER: Still having some cough. Cardio: COMMON NORMALS: no JVD, regular rhythm, S1 normal heart sound present, S2 normal heart sound present and No murmurs present (Cardio) RHYTHM: regular rhythm HEART SOUNDS: S1 normal heart sound present and S2 normal heart sound present GI: COMMON NORMALS: Normal to inspection, nondistended, normoactive bowel sounds present, Soft to palpation and non-tender PALPATION: Yes Soft to palpation Extremity: COMMON NORMALS: no joint enlargement and no pedal edema Neuro: COMMON NORMALS: patient oriented x3 and moves all extremities Skin: COMMON NORMALS: no rashes or lesions noted GENERAL SKIN EXAM: no rashes or lesions noted Discharge Data Data Completed and Pending: Completed Studies During Hospitalization Category Date Time Status XR chest 1V ivelisse ble [id number] Stat Exams 04/10/20 09:38 Completed Pending at discharge Category Date Time Status Blood Culture Sta t Lab 04/10/20 10:10 Results MRSA by PCR Routi ne Lab 04/10/20 17:39 Received Labs from last 24 hours 04/15/20 04/15/20 04/15/20 07:21 03:38 03:38 WBC 10.1 H RBC 4.84 Hgb 14.8 Hct 41.9 L MCV 86.6 MCH 30.6 MCHC 35.3 RDW 11.7 L Plt Count 353 MPV 10.0 Total Counted 100 Atypical Lymphs % 0.0 Absolute Neutrophi ls 8.1 H Segmented Neutroph ils 79 Abs Segm Neuts (Ma n) 8.0 H Band Neutrophils 1.0 Abs Band Neuts (Ma n) 0.1 Lymphocytes (Manua l) 9 Monocytes (Manual) 11.0 Absolute Monocytes 1.1 H Eosinophils (Manua l) 0 Absolute Eosinophi ls 0.0 Basophils (Manual) 0.0 Absolute Basophils 0.0 Platelet Estimate Normal Polychromasia 1+ H Poikilocytosis 2+ H Sodium 136 Potassium 4.2 Chloride 98 Carbon Dioxide 29 Anion Gap 13.2 BUN 23 Creatinine 0.5 L GFR Calculation 165.9 H Glucose 180 H POC Glucose 168 Calculated Osmolal ity 290 Calcium 8.7 Urine Color Urine Appearance Urine pH Ur Specific Gravit y Urine Protein Urine Glucose (UA) Urine Ketones Urine Blood Urine Nitrate Urine Bilirubin Urine Urobilinogen Ur Leukocyte Tiffanie ase 04/15/20 04/14/20 04/14/20 01:37 20:58 16:21 WBC RBC Hgb Hct MCV MCH MCHC RDW Plt Count MPV Total Counted Atypical Lymphs % Absolute Neutrophi ls Segmented Neutroph ils Abs Segm Neuts (Ma n) Band Neutrophils Abs Band Neuts (Ma n) Lymphocytes (Manua l) Monocytes (Manual) Absolute Monocytes Eosinophils (Manua l) Absolute Eosinophi ls Basophils (Manual) Absolute Basophils Platelet Estimate Polychromasia Poikilocytosis Sodium Potassium Chloride Carbon Dioxide Anion Gap BUN Creatinine GFR Calculation Glucose POC Glucose 172 403 313 Calculated Osmolal ity Calcium Urine Color Urine Appearance Urine pH Ur Specific Gravit y Urine Protein Urine Glucose (UA) Urine Ketones Urine Blood Urine Nitrate Urine Bilirubin Urine Urobilinogen Ur Leukocyte Tiffanie ase 04/14/20 04/14/20 15:33 11:19 WBC RBC Hgb Hct MCV MCH MCHC RDW Plt Count MPV Total Counted Atypical Lymphs % Absolute Neutrophi ls Segmented Neutroph ils Abs Segm Neuts (Ma n) Band Neutrophils Abs Band Neuts (Ma n) Lymphocytes (Manua l) Monocytes (Manual) Absolute Monocytes Eosinophils (Manua l) Absolute Eosinophi ls Basophils (Manual) Absolute Basophils Platelet Estimate Polychromasia Poikilocytosis Sodium Potassium Chloride Carbon Dioxide Anion Gap BUN Creatinine GFR Calculation Glucose POC Glucose 252 Calculated Osmolal ity Calcium Urine Color Straw Urine Appearance Clear Urine pH 6 Ur Specific Gravit y 1.015 Urine Protein Neg Urine Glucose (UA) 4+ H Urine Ketones Negative Urine Blood Neg Urine Nitrate Negative Urine Bilirubin Neg Urine Urobilinogen Neg Ur Leukocyte Tiffanie ase Negative Vitals: Last Vital Signs Temp 97.7 F 04/15/20 04:21 Pulse 90 04/15/20 09:00 Resp 24 H 04/15/20 09:00 BP 148/88 04/15/20 09:00 Pulse Ox 88 L 04/15/20 09:16 Discharge Plan Discharge Patient Disposition: Home Condition: Stable Prescriptions: New benzonatate 100 mg Capsule 200 mg PO TID Qty: 30 RF: 0 albuterol sulfate [Ventolin HFA] 90 mcg/actuation Hfa Aerosol Inhaler 2 puff inhalation Q4H.RESPIRATORY PRN (Reason: Shortness Of Breath) Qty: 8.5 RF: 0 levofloxacin 750 mg tablet 750 mg PO DAILY 4 Days Qty: 4 RF: 0 famotidine 20 mg Tablet 20 mg PO BID Qty: 28 RF: 0 Continued amlodipine 10 mg tablet 10 mg PO DAILY Qty: 90 RF: 1 Jardiance 10 mg tablet 10 mg PO DAILY 30 Days Qty: 30 RF: 5 hydrocodone-acetaminophen 10-325 mg tablet 1 tab PO TID PRN (Reason: pain) 30 Days Qty: 90 RF: 0 tizanidine 4 mg tablet 4 mg PO BID PRN (Reason: muscle pain) RF: 0 triamcinolone acetonide 0.1 % cream 1 applic TOPICAL BID PRN (Reason: Skin Irritation) RF: 0 sildenafil (pulm.hypertension) 20 mg tablet 20 mg PO PRN PRN (Reason: Hypertension) RF: 0 Zyrtec 10 mg capsule 10 mg PO DAILY RF: 0 ascorbic acid (vitamin C) 1,000 mg tablet 1 gm PO DAILY RF: 0 metoprolol succinate 50 mg tablet extended release 24 hr 50 mg PO BID 30 Days Qty: 60 RF: 5 metformin 500 mg tablet 1,000 mg PO BID 90 Days Qty: 360 RF: 0 atorvastatin 40 mg tablet 40 mg PO DAILY Qty: 90 RF: 0 gabapentin [Neurontin] 300 mg capsule 300 mg PO TID 90 Days Qty: 270 RF: 0 montelukast 10 mg tablet 10 mg PO DAILY Qty: 90 RF: 0 furosemide [Lasix] 20 mg tablet 20 mg PO DAILY PRN (Reason: edema) 30 Days Qty: 90 RF: 3 acetaminophen 325 mg Tablet 325 mg PO QID PRN (Reason: Fever) RF: 0 aspirin 81 mg Tablet,Chewable 162 mg PO DAILY RF: 0 magnesium 250 mg Tablet 250 mg PO BID RF: 0 Vitamin D3 50 mcg (2,000 unit) Capsule 50 mcg PO DAILY RF: 0 Held meloxicam 15 mg tablet 15 mg PO DAILY Qty: 90 RF: 0 Hold Instructions: Resume on 04/22/20. Discontinued potassium chloride 8 mEq capsule, extended release 8 meq PO DAILY PRN (Reason: with lasix) 30 Days Qty: 90 RF: 3 ibuprofen 600 mg Tablet 600 mg PO QID PRN (Reason: Fever) RF: 0 Discharge Orders: Discharge Order (Routine); Ordered 04/15/20 Ordered By: Benja Forrester Other Ambulatory Orders: DME: Oxygen (Order) Location: None Selected Ordered By: Benja Forrester Referrals: Marylu Gómez FNP [Primary Care Provider] - 4-7 days (Telehealth visit within 48hrs if possible. COVID19 pneumonia.) Discharge Diet: Advance as tolerated and Diabetic Discharge Activity: Increase activity as tolerated and Oxygen as instructed Activity Restrictions/Additional Instructions: Continue to slowly advance activity as tolerating. If you are able to monitor your oxygen level at home, target oxygen saturation of 92%. If your oxygen saturation is persistently below 90%, especially if you already increased oxygen flow, please seek medical attention. Call ambulance if you are experiencing any severe chest pain, severe shortness of breath, any change in color of your fingers or lips to blue, fainting, extreme weakness, inability to tolerate food or drink, or any other concerning symptoms. Please maintain isolation, distancing of at least 6 feet, handwashing, masking of close contacts and isolation at home for at least another 5 days, and then after you have been at least 24 hours without a fever, and with resolution of symptoms and improving cough isolation can be discontinued. Please attempt to set up follow-up with your primary care provider by telehealth visit within 48 hours if possible, otherwise resume follow-up within 4-7 days. Continue following up with your primary care doctor to optimize control of curr ent conditions including diabetes, cholesterol, high blood pressure. Continue follow-up with urology Dr. Veliz. Discharge Attestations Time Spent in Discharge Care*: greater than 30 min Quality Metrics Clinical Quality Measures During this hospital stay, did patient experience: None Coding Level of Care Code Acute Baker Pie for g Fwd Diagnoses Pneumonia due to COVID-19 virus U07.1; J12.89 Multilevel degenerative disc disease M53.9 Mixed hyperlipidemia E78.2 Type 2 diabetes mellitus E11.9 Essential hypertension I10
--- NOTE | 2020-04-15 11:16 | DCPLANNER ---
Pt does call junior underwriter, explained the IM to him. No questions.
[2020-04-15 11:54] LABS: Glucose Point of Care 306 mg/dL (70-110)
--- NOTE | 2020-04-15 15:58 | PC.NURSE ---
Pt discharged with all belongings and new medications. Verbalized understanding of discharge instructions.
--- NOTE | 2020-04-17 15:58 | PC.SOCIAL ---
Spoke to patient post discharge. He indicates he is less short of breath until he gets up and is taking a shower or without O2 for extended time. He was encouraged to wear this when ambulating as well. His O2 is maintained between 90-94% while on Oxygen at 2.5L. He is eating and drinking well. He has been afebrile. We have reviewed new medications in detail and we have discussed the need to rinse mouth after inhaler use and we have also discussed the meds that were changed and those that were stopped. He did speak to Dr Shane today on the phone and they have discussed the care as well. He is overall feeling well. We discussed importance of vaccinations. He has gotten flu vaccine two weeks ago and indicates he will discuss getting PNA vaccine soon since has probably been five years. We discussed the importance of washing hands for 20 sec, santize highly used surfaces, continue with masking and social distancing. We discussed plasma donation and he would be interested if he is not ruled out due to a history of Hepatitis C. He was encouraged to call to ensure this will rule him out. He was advised to give information to someone else who he may know that has tested positive if he is unable to donate. He verbalized understanding and is happy to do so. Patient was pleased with his care and will be writing a letter to [employer] Per his report. All questions were answered and patient has no concerns at this time.
== END 2020-04-15 16:00 | disposition home or self-care (01) | DRG 177 ==
LOC: ER 13:52 → ICU 15:20
PROVIDERS: Hospitalist; Nurse Practitioner Family; Admitting Provider Family Medicine; PCP Nurse Practitioner Family; Visit Provider Internal Medicine
DX: U07.1 COVID-19 (principal); J12.89 Other viral pneumonia; E78.2 Mixed hyperlipidemia; E11.65 Type 2 diabetes mellitus with hyperglycemia; I10 Essential (primary) hypertension; D64.9 Anemia, unspecified; M35.9 Systemic involvement of connective tissue, unspecified; Z79.84 Long term (current) use of oral hypoglycemic drugs; Z79.82 Long term (current) use of aspirin; G89.29 Other chronic pain; M54.5 Low back pain; Z85.46 Personal history of malignant neoplasm of prostate; Z87.891 Personal history of nicotine dependence
CPT/HCPCS: 12345; 36415; 36416; 71045; 80048; 80053; 81003; 82550; 82728; 82962; 83605; 83615; 83880; 84145; 85007; 85025; 85027; 85378; 85384; 85651; 86140; 86403; 87040; 87070; 87205; 87449; 87641; 87804; 94640; 94664; 96372; 96375; 99284; J0456; J0696; J1100; J1650; J1815; J2405; J3535; J7050

== ENCOUNTER → 2020-04-26 07:50 | Outpatient (BNVA) | payer MEDICARE, OTHER, SELFPAY | PROVIDERS: Family Provider Family Medicine; PCP Family Medicine; Visit Provider Anesthesiology | DX: G89.29 Other chronic pain (principal); M54.41 Lumbago with sciatica, right side; M54.42 Lumbago with sciatica, left side; M51.36 Other intervertebral disc degeneration, lumbar region; M54.9 Dorsalgia, unspecified; M54.2 Cervicalgia; Z79.891 Long term (current) use of opiate analgesic | CPT/HCPCS: 99213; 99214 ==

== ENCOUNTER → 2020-05-01 09:02 | Outpatient (BNVA) | payer MEDICARE, OTHER, SELFPAY | PROVIDERS: Family Provider Family Medicine; PCP Family Medicine; Visit Provider Family Medicine | DX: U07.1 COVID-19 (principal); J12.89 Other viral pneumonia | CPT/HCPCS: 71046 ==

== ENCOUNTER 2020-05-06 15:13 | Emergency (ER) | payer MEDICARE, OTHER, SELFPAY ==
[2020-05-06 15:34] VITALS: BP 119/77; PULSE 90; RESP 14; TEMP 36.7; O2SAT 96; BMI 26.6
--- NOTE | 2020-05-06 15:39 | XR_ITS ---
WS: [id number] XR chest 1V portable [id number] REASON FOR EXAM: sob FINDINGS: The bilateral infiltrative processes demonstrated on the previous exam of 05/01/2020 show significant resolution although some residual abnormality remains, most notably in the left chest. No new findings. XR/XR chest 1V portable [id number] IMPRESSION: Improving abnormal chest.
--- NOTE | 2020-05-06 15:39 | ECG_ITS ---
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: : 1950 Requested By: Saloni Dial Order Number: [id number] Brando MD: ROBERT MCGREGOR Measurements Intervals [place] Rate: 75 P: 38 AK: 171 QRS: -53 QRSD: 102 T: 11 QT: 377 QTc: 423 Interpretive Statements SINUS RHYTHM LOW QRS VOLTAGE IN PRECORDIAL LEADS [QRS DEFLECTION < 1.0 mV IN CHEST LEADS] INFERIOR MYOCARDIAL INFARCTION , PROBABLY OLD [40+ ms Q WAVE AND/OR ST/T ABNORMALITY IN II/aVF] ANTEROLATERAL MYOCARDIAL INFARCTION , OF INDETERMINATE AGE [40+ ms Q WAVE IN I/aVL/V3-V6] No previous ECG available for comparison Electronically Signed On 05-09-2020 15:30:09 [employer] SUPERINTENDENT by ROBERT MCGREGOR [id number]
--- NOTE | 2020-05-06 16:33 | CTR_ITS ---
PROCEDURE INFORMATION: Exam: CT Angiography Chest With Contrast Exam date and time: 05/06/2020 5:09 PM Age: 69 years old Clinical indication: Shortness of breath; Patient HX: Covid + ; Additional info: Dyspnea TECHNIQUE: Imaging protocol: Computed tomographic angiography of the chest with intravenous contrast. 3D rendering (Not supervised by radiologist): MIP and/or 3D reconstructed images were created by the technologist. Radiation optimization: All CT scans at this facility use at least one of these dose optimization techniques: automated exposure control; mA and/or kV adjustment per patient size (includes targeted exams where dose is matched to clinical indication); or iterative reconstruction. Contrast material: OMNI 350; Contrast volume: 68 ml; Contrast route: INTRAVENOUS (IV); COMPARISON: CR XR chest 1V portable [id number] 05/06/2020 4:35 PM RADIATION DOSE METRICS: Total DLP (mGy-cm): 578.98 FINDINGS: Pulmonary arteries: No visible evidence of pulmonary embolism/pulmonary arterial thrombus. Aorta: The thoracic aorta is nonaneurysmal. Mild arterial sclerotic disease. No visible intimal flap or dissection. Lungs: Examination reveals predominantly peripheral ground-glass interstitial lung disease with evidence of early subsegmental consolidation in the bilateral lower lobes of active pneumonitis/pneumonia. Consideration might be given to Covid-19 pneumonitis/pneumonia. Evidence of antecedent granulomatous disease. Pleural space: Unremarkable. No pneumothorax. No pleural effusion. Heart: Mild coronary artery disease. No visible pericardial effusion. No cardiomegaly. Lymph nodes: No visible active mediastinal or hilar lymphadenopathy. Bones/joints: No visible active or acute osseous pathology. No visible osteolytic or osteoblastic destructive process. Mild degenerative disease of the spine. Soft tissues: Unremarkable. CT/CT angio chest PE protcl [id number] IMPRESSION: 1. No visible evidence of pulmonary embolism/pulmonary arterial thrombus. 2. Examination reveals predominantly peripheral ground-glass interstitial lung disease with evidence of early subsegmental consolidation in the bilateral lower lobes of active pneumonitis/pneumonia. Consideration might be given to Covid-19 pneumonitis/pneumonia. 3. Other nonurgent, nonemergent, chronic, and age related findings as detailed in text above. Radiation Dose CTDIVOL = (mGy): DLP = 578.98 (mGy-cm)
[2020-05-06 16:57] VITALS: PULSE 88; RESP 22; O2SAT 93
[2020-05-06 17:07] LABS: Basophils % 0.5 %; Eosinophils # 0.3 10^3/uL (0.0-0.8); Eosinophils % 4.4 %; Hematocrit 45.7 % (42.0-52.0); Hemoglobin 15.1 g/dL (11.7-16.6); Lymphocytes # 0.9 10^3/uL (0.8-4.8); Lymphocytes % 11.6 %; Mean Corpuscular Hemoglobin 30.4 pg (28.0-34.0); Mean Corpuscular Volume 92.1 fL (80-94); Mean Platelet Volume 9.1 fL (7.4-10.4); Monocytes # 0.6 10^3/uL (0.2-0.9); Monocytes % 8.6 %; Neutrophils # 5.55 10^3/uL (1.8-7.7); Neutrophils % 74.6 %; Nucleated Red Blood Cells % 0 %; Platelet Count 257 10^3/cmm (130-400); Red Blood Count 4.96 10^6/uL (4.1-5.3); Red Cell Distribution Width 13.2 % (12.1-15.1); White Blood Count 7.4 10^3/uL (4.0-10.0)
[2020-05-06] MEDS: iohexol 350 mg/mL 100 mL Btl IV (17:17)
--- NOTE | 2020-05-06 17:27 | ED_ITS ---
HPI - SOB/Dyspnea General: Chief Complaint: Shortness of Breath/Dyspnea Stated Complaint: SOB/was + Apr.03 Time Seen by Provider: 05/06/20 16:27 History of Present Illness: HPI Narrative: 69-year-old male presents emergency room complaining of shortness of breath. Earlier this month he was treated for Covid. He was discharged home now he is having increasing shortness of breath. His sats on room air at rest is 93% however he does get a little tachypneic with that. On 1 L by nasal cannula his sat will be at 96% with a respiratory rate of 14. He denies any fever or productive cough. He recently was treated as an outpatient after being hospitalized for Covid with a course of Zithromax which she finished yesterday and still is having symptoms he was directed here by his primary caregiver for further evaluation. MD elicited complaint: shortness of breath Pertinent past history: other (Recent Covid 19 infection) Onset (ago): week(s) Context: recent illness Timing: constant Severity: moderate Exacerbating factors: exertion Relieving factors: oxygen and rest Associated symptoms: Deny abdominal pain, chest pain, fever(s), nausea, orthopnea or vomiting Review of Systems Const: Denies: fever(s), chills, body aches, change in appetite, fatigue or malaise ENMT: Denies: throat pain, ear or mastoid pain, nasal discharge or nasal congestion Card: Denies: chest pain, edema, dyspnea on exertion or orthopnea Resp: Denies: dyspnea, productive cough or non-productive cough GI: Denies: abdominal pain, nausea, vomiting, hematemesis, coffee ground emesis, diarrhea, constipation, bloating, hematochezia or melena : Denies: flank pain, dysuria, urinary frequency or urinary urgency Skin/Breast: Denies: rash or pruritus PFSH ED PFSH: Medical History (Updated 05/06/20 @ 17:54 by Jean Paul Cuello DO) Abnormal prostate biopsy Atypical chest pain Back Pain Cervical spine pain Chronic low back pain Degeneration of lumbar intervertebral disc Encounter for long-term use of opiate analgesic Environmental and seasonal allergies Essential hypertension Fatigue Medication refill Mixed hyperlipidemia Multilevel degenerative disc disease Opioid contract exists Palpitation (~06/2019) Post-procedural erectile dysfunction Prostate cancer Skin graft (allograft) (autograft) failure Tonsillectomy planned Type 2 diabetes mellitus Ventricular arrhythmia The EKG from today, 12/06/2019, revealed sinus rhythm with a possible old inferior wall MO. Poor R wave progression. Compared to the previous EKG, there may not be a significant change. Surgical History H/O adenoidectomy H/O lateral meniscus repair of left knee History of appendectomy History of hip replacement right History of prostatectomy Hx of colonoscopy (~01/2018) S/P ureteral stent placement Family History Father , at age 88 Myocardial infarction (lateral wall) Mother , at age 53 Prostate cancer Aneurysm Other CAD (coronary artery disease) Diabetes Social History Smoking and tobacco status: former smoker Quit status (tobacco): has quit using tobacco Former quit date comment: 50 yrs ago Second hand smoke exposure: No Alcohol intake: never Lives independently: Yes Household members: spouse Marital status: Current occupational status: employed Current occupation: [employer] History of recent travel: No Physical Exam Const: COMMON NORMALS: no acute distress GENERAL APPEARANCE: cooperative and comfortable ORIENTATION/CONSCIOUSNESS: Yes awake, Yes oriented to person, Yes oriented to place and Yes oriented to time HENMT: COMMON NORMALS: normocephalic, atraumatic, hearing grossly normal bilaterally, external ears normal, EAC's normal, TM's normal bilaterally, Normal nasal mucous membranes and turbinates present, moist oral mucous membranes and oropharynx normal HEAD & SCALP: normocephalic and atraumatic NOSE: Normal nasal mucous membranes and turbinates present EXTERNAL EAR: Yes external ears normal EXTERNAL AUDITORY CANAL: EAC's normal TYMPANIC MEMBRANE: TM's normal bilaterally Eye: COMMON NORMALS: Equal, round and reactive pupils present, EOMs intact bilaterally, conjunctivae normal and no scleral icterus CONJUNCTIVA: Yes conjunctivae normal PUPIL: Yes Equal, round and reactive pupils present Neck/C-Spine: COMMON NORMALS: full ROM, no lymphadenopathy, supple and no JVD Lymph: LYMPHATIC: no lymphadenopathy noted and no lymphedema noted Resp: COMMON NORMALS: normal respiratory effort, No retractions, No use of accessory muscles and clear to auscultation bilaterally AUSCULTATION: clear to auscultation bilaterally Cardio: COMMON NORMALS: no JVD, regular rate, regular rhythm and No murmurs present (Cardio) RATE: regular rate RHYTHM: regular rhythm GI: COMMON NORMALS: Soft to palpation and No hepatosplenomegaly present AUSCULTATION: Yes normoactive bowel sounds PALPATION: Yes Soft to palpation, No Tenderness to palpation present (GI), No Guarding due to palpation present (GI) and Yes No hepatosplenomegaly present Extremity: COMMON NORMALS: normal to inspection, capillary refill normal, no clubbing, cyanosis or edema, no calf tenderness and no pedal edema Neuro: SENSORIUM/ORIENTATION: Yes oriented to person, Yes oriented to place and Yes oriented to time Skin: COMMON NORMALS: no rashes or lesions noted GENERAL SKIN EXAM: no rashes or lesions noted Course Vital Signs: Vital signs: Vital Signs Temperature 98.1 F 05/06/20 15:34 Pulse Rate 79 05/06/20 18:43 Respiratory Rate 22 H 05/06/20 18:43 Blood Pressure 122/77 05/06/20 18:43 Pulse Oximetry 96 05/06/20 18:43 MDM - SOB/Dyspnea MDM Narrative: Medical decision making narrative: Pneumonia secondary to previous COVID-19. He is maintaining his sats well continue his oxygen switch him to Levaquin daily and continue to use albuterol as needed follow-up in 3 to 4 days primary care doctor return to the emergency room if has further problems. Lab Data: Labs: Lab Results 05/06/20 05/06/20 05/06/20 Range/Units 16:49 16:49 16:49 WBC 7.4 (4.0-10.0) 10^3/ uL RBC 4.96 (4.1-5.3) 10^6/u L Hgb 15.1 (11.7-16.6) g/dL Hct 45.7 (42.0-52.0) % MCV 92.1 (80-94) fL MCH 30.4 (28.0-34.0) pg MCHC 33.0 (30.0-36.0) g/dL RDW 13.2 (12.1-15.1) % Plt Count 257 (130-400) 10^3/c mm MPV 9.1 (7.4-10.4) fL Neut % (Auto) 74.6 % Lymph % (Auto) 11.6 % Garfield % (Auto) 8.6 % Eos % (Auto) 4.4 % Baso % (Auto) 0.5 % Neut # (Auto) 5.55 (1.8-7.7) 10^3/u L Lymph # (Auto) 0.9 (0.8-4.8) 10^3/u L [place]field # (Auto) 0.6 (0.2-0.9) 10^3/u L Eos # (Auto) 0.3 (0.0-0.8) 10^3/u L Baso # (Auto) 0.0 (0.0-0.1) 10^3/u L Nucleated RBC % (a uto) 0 % Nucleated RBCs # 0.0 /100WBC D-Dimer 0.49 (0-0.59) ug/mIFE U Sodium 143 (136-145) mmol/L Potassium 4.4 (3.5-5.1) mmol/L Chloride 104 (98-107) mmol/L Carbon Dioxide 27 (22-29) mmol/L Anion Gap 16.4 (5-19) BUN 15 (8-23) mg/dL Creatinine 0.8 (0.7-1.2) mg/dL GFR Calculation 96.4 (90-130) mL/min Glucose 154 H (65-115) mg/dL Calculated Osmolal ity 300 H (285-295) mOsm/k g Calcium 9.6 (8.5-10.5) mg/dL Total Bilirubin 0.2 (0.15-1.2) mg/dL AST 17 (0-40) U/L ALT 28 (0-41) U/L Alkaline Phosphata se 76 (40-130) IU/L NT-Pro-B Natriuret Pep 98 (0-125) pg/mL Total Protein 6.7 (6.6-8.7) g/dL Albumin 4.3 (3.5-5.2) g/dL Globulin 2.4 (1.3-4.6) g/dL Discharge Plan Discharge Patient Disposition: Home Clinical Impression: Pneumonia, Pneumonia due to COVID-19 virus Condition: Stable Prescriptions: New levofloxacin 750 mg tablet 750 mg PO DAILY 7 Days RF: 0 No Action amlodipine 10 mg tablet 10 mg PO DAILY Qty: 90 RF: 1 Jardiance 10 mg tablet 10 mg PO DAILY 30 Days Qty: 30 RF: 5 benzonatate 100 mg capsule 200 mg PO TID Qty: 60 RF: 2 azithromycin [Zithromax] 500 mg tablet 500 mg PO DAILY 5 Days Qty: 5 RF: 0 tizanidine 4 mg tablet 4 mg PO BID PRN (Reason: muscle pain) RF: 0 triamcinolone acetonide 0.1 % cream 1 applic TOPICAL BID PRN (Reason: Skin Irritation) RF: 0 Zyrtec 10 mg capsule 10 mg PO DAILY RF: 0 ascorbic acid (vitamin C) 1,000 mg tablet 1 gm PO DAILY RF: 0 metformin 500 mg tablet 1,000 mg PO BID 90 Days Qty: 360 RF: 0 atorvastatin 40 mg tablet 40 mg PO DAILY Qty: 90 RF: 0 gabapentin [Neurontin] 300 mg capsule 300 mg PO TID 90 Days Qty: 270 RF: 0 montelukast 10 mg tablet 10 mg PO DAILY Qty: 90 RF: 0 hydrocodone-acetaminophen 10-325 mg tablet 1 tab PO TID PRN (Reason: pain) 30 Days Qty: 90 RF: 0 furosemide [Lasix] 20 mg tablet 20 mg PO DAILY PRN (Reason: edema) 30 Days Qty: 90 RF: 3 meloxicam 15 mg tablet 15 mg PO DAILY Qty: 90 RF: 0 Hold Instructions: Resume on 04/22/20. aspirin 81 mg Tablet,Chewable 162 mg PO DAILY RF: 0 magnesium 250 mg Tablet 250 mg PO BID RF: 0 cholecalciferol (vitamin D3) [Vitamin D3] 50 mcg (2,000 unit) Capsule 50 mcg PO DAILY RF: 0 albuterol sulfate [Ventolin HFA] 90 mcg/actuation Hfa Aerosol Inhaler 2 puff inhalation Q4H.RESPIRATORY PRN (Reason: Shortness Of Breath) Qty: 8.5 RF: 0 famotidine 20 mg Tablet 20 mg PO BID Qty: 28 RF: 0 metoprolol tartrate 50 mg tablet 50 mg PO BID RF: 0 Elderberry 200 mg Capsule 200 mg PO DAILY RF: 0 [place] 1 tab PO DAILY RF: 0 zinc 1 tab PO DAILY RF: 0 Discharge Orders: Discharge Order (Routine); Ordered 05/06/20 Ordered By: Jean Paul Cuello Referrals: Adalgisa Shane MD [Primary Care Provider] - Discharge Diet: Usual diet Discharge Activity: Limit activity as instructed Coding Level of Care Code ED Skin Specialist for Chg Fwd Exam Comprehensive
[2020-05-06 17:40] LABS: D Dimer 0.49 ug/mIFEU (0-0.59)
[2020-05-06 17:57] LABS: Alanine Aminotransferase 28 U/L (0-41); Albumin Level 4.3 g/dL (3.5-5.2); Alkaline Phosphatase 76 IU/L (40-130); Anion Gap 16.4 (5-19); Aspartate Amino Transferase 17 U/L (0-40); Blood Urea Nitrogen 15 mg/dL (8-23); Calcium 9.6 mg/dL (8.5-10.5); Carbon Dioxide 27 mmol/L (22-29); Chloride 104 mmol/L (98-107); Globulin 2.4 g/dL (1.3-4.6); Glomerular Filtration Rate 96.4 mL/min (90-130); Glucose 154 mg/dL (65-115); NT Pro B Type Natriuretic Pept 98 pg/mL (0-125); Osmolality Calculated 300 mOsm/kg (285-295); Potassium 4.4 mmol/L (3.5-5.1); Sodium 143 mmol/L (136-145); Total Bilirubin 0.2 mg/dL (0.15-1.2); Total Protein 6.7 g/dL (6.6-8.7)
[2020-05-06 18:43] VITALS: BP 122/77; PULSE 79; RESP 22; O2SAT 96
== END 2020-05-06 18:51 | disposition home or self-care (01) ==
PROVIDERS: Emergency Medicine; Emergency Provider Family Medicine; PCP Family Medicine
DX: U07.1 COVID-19 (principal); J12.89 Other viral pneumonia; Z79.82 Long term (current) use of aspirin; Z79.84 Long term (current) use of oral hypoglycemic drugs; I10 Essential (primary) hypertension; E78.2 Mixed hyperlipidemia; Z85.46 Personal history of malignant neoplasm of prostate; E11.9 Type 2 diabetes mellitus without complications; Z87.891 Personal history of nicotine dependence
CPT/HCPCS: 12345; 71045; 71275; 80053; 83880; 85025; 85378; 93005; 99283; Q9967

== ENCOUNTER → 2020-05-15 10:30 | Outpatient (BNVA) | payer MEDICARE, OTHER, SELFPAY | PROVIDERS: PCP Family Medicine; Visit Provider Family Medicine | DX: U07.1 COVID-19 (principal); J12.89 Other viral pneumonia | CPT/HCPCS: 71046 ==

== ENCOUNTER → 2020-06-17 11:10 | Outpatient (BNVA) | payer MEDICARE, OTHER, SELFPAY | PROVIDERS: PCP Family Medicine; Visit Provider Family Medicine | DX: U07.1 COVID-19 (principal); J12.89 Other viral pneumonia; E11.65 Type 2 diabetes mellitus with hyperglycemia | CPT/HCPCS: 71046 ==

== ENCOUNTER → 2020-06-28 08:24 | Outpatient (BNVA) | payer MEDICARE, OTHER, SELFPAY | PROVIDERS: PCP Family Medicine; Visit Provider Anesthesiology | DX: G89.29 Other chronic pain (principal); M54.2 Cervicalgia; M51.36 Other intervertebral disc degeneration, lumbar region; M54.9 Dorsalgia, unspecified; Z79.899 Other long term (current) drug therapy; Z79.891 Long term (current) use of opiate analgesic | CPT/HCPCS: 99214 ==

== ENCOUNTER → 2020-07-18 09:24 | Outpatient (BNVA) | payer MEDICARE, OTHER, SELFPAY | PROVIDERS: PCP Family Medicine; Visit Provider Nurse Practitioner Family | DX: E11.9 Type 2 diabetes mellitus without complications (principal); Z79.899 Other long term (current) drug therapy; R07.89 Other chest pain; R53.83 Other fatigue; R06.02 Shortness of breath; E55.9 Vitamin D deficiency, unspecified; M25.511 Pain in right shoulder | CPT/HCPCS: 80053; 80061; 82306; 83036 ==

== ENCOUNTER → 2020-07-27 10:48 | Outpatient (BNVA) | payer MEDICARE, OTHER, SELFPAY | PROVIDERS: PCP Family Medicine; Visit Provider Internal Medicine Pulmonary Disease | DX: Z20.822 Contact with and (suspected) exposure to COVID-19 (principal); Z01.812 Encounter for preprocedural laboratory examination | CPT/HCPCS: 87635 ==

== ENCOUNTER 2020-08-01 10:59 | Outpatient (CLI) | payer MEDICARE, OTHER, SELFPAY ==
[2020-08-01 12:25] LABS: Basophils % 0.7 %; Eosinophils # 0.1 10^3/uL (0.0-0.8); Eosinophils % 2.2 %; Hematocrit 44.4 % (42.0-52.0); Hemoglobin 15.4 g/dL (11.7-16.6); Lymphocytes % 18.2 %; Mean Corpuscular HGB Conc 34.7 g/dL (30.0-36.0); Mean Corpuscular Hemoglobin 31.1 pg (28.0-34.0); Mean Corpuscular Volume 89.7 fL (80-94); Mean Platelet Volume 8.8 fL (7.4-10.4); Monocytes # 0.4 10^3/uL (0.2-0.9); Monocytes % 7.9 %; Neutrophils # 3.77 10^3/uL (1.8-7.7); Neutrophils % 70.6 %; Nucleated Red Blood Cells % 0 %; Platelet Count 233 10^3/cmm (130-400); Red Blood Count 4.95 10^6/uL (4.1-5.3); Red Cell Distribution Width 11.4 % (12.1-15.1); White Blood Count 5.3 10^3/uL (4.0-10.0)
--- NOTE | 2020-08-01 13:30 | CT_ITS ---
WS: [id number] CT CHEST WITHOUT INTRAVENOUS CONTRAST HISTORY: Resolution of pneumonia. Follow-up evaluation. TECHNIQUE: Contiguous 5 mm axial imaging performed on the thorax. Coronal and sagittal reformats are submitted. All CT scans at [facility] use at least one of these dose optimization techniq ues: automated exposure control; mA and/or kV adjustment per patient size (includes targeted exams wh ere dose is matched to clinical indication); or iterative reconstruction. CONTRAST: Omnipaque 300; 95 mL IV. DLP: 742.29 mGy.cm COMPARISON: 05/06/2020 Lungs and central airway: Hyperexpanded lungs. Significant improvement of pulmonary expansion and air space disease since the prior study. There is now very minimal interstitial thickening posteriorly in the lower lung milton. No suspicious mass or nodule. Pleura: Normal. No pleural effusion. Heart and pericardium: Mildly enlarged heart. No pericardial effusion. Mediastinum and skylar: No mediastinum or hilar adenopathy. Vessels: Mild atherosclerosis aorta with no aneurysm. Normal size pulmonary artery. Mild scattered ca lcifications coronary arteries. Chest wall and lower neck: No soft tissue masses. Upper abdomen: Mild perinephric stranding around the superior poles of each kidney. Visualized gallbl adder and liver are negative. Osseous structures: Mild increase in thoracic kyphosis and spondylitic changes. CT/CT chest wo [facility] [id number] IMPRESSION: 1. Significant improvement in aeration in the bilateral lower lobes since 04/15. Very minimal persistent interstitial thickening is now present. 2. Chronic emphysema. 3. Atherosclerosis aorta, mild.
--- NOTE | 2020-08-01 13:55 | PFTS_ITS ---
Date of Study:08/01/20 Date of Dictation: 08/06/2020 MECHANICS: Forced vital capacity (FVC) is normal. Forced expiratory volume in one second (FEV1) is normal. FEV1/FVC is normal. FLOW VOLUME LOOP: Normal . LUNG VOLUMES: Total lung capacity (TLC) is normal. Residual volume (RV) is normal DIFFUSING CAPACITY FOR CARBON MONOXIDE: Normal . INTERPRETATION: The pulmonary function tests are normal. MTDD
[2020-08-02 16:33] LABS: Immunoglobulin E 5 kU/L (<OR=114)
[2020-08-02 17:02] LABS: Alternaria Alternata (M6) Ige <0.10 kU/L; Alternaria Class 0; Bermuda Class 0; Bermuda Grass (G2) Ige <0.10 kU/L; Cat Dander (E1) Ige <0.10 kU/L; Cat Dander Class 0; Common Ragweed (Short) (W1) Ig <0.10 kU/L; D. Farinae Class 0; Dermatophagoides Class 0; Dermatophagoides Farinae (D2) <0.10 kU/L; Dermatophagoides Pteronyssinus <0.10 kU/L; Dog Dander (E5) Ige <0.10 kU/L; Dog Dander Class 0; Elm (T8) Ige <0.10 kU/L; Elm Class 0; English Plantain (W9) Ige <0.10 kU/L; English Plantain Class 0; House Dust (Greer) (H1) Ige <0.10 kU/L; House Dust (Hollister- Stier) <0.10 kU/L; House Dust Class 0; Immunoglobulin E 6 kU/L (<OR=114); Johnson Grass (G10) Ige <0.10 kU/L; Johnson Grass Cl 0; June Grass Class 0; June Grass(Kentucky Blue) (G8) <0.10 kU/L; Lamb'S Quarters (Goose Foot) <0.10 kU/L; Lamb'S Quarters Class 0; Maple (Box Elder) (T1) Ige <0.10 kU/L; Maple Class 0; Meadow Fescue (G4) Ige <0.10 kU/L; Meadow Fescue Class 0; Mucor Racemosus Class 0; Oak (T7) Ige <0.10 kU/L; Oak Class 0; Orchard Grass (Cocksfoot) (G3) <0.10 kU/L; Penicillium Class 0; Penicillium Notatum (M1) Ige <0.10 kU/L; Perennial Rye Grass (G5) Ige <0.10 kU/L; Perennial Rye Grass Class 0; Ragweeed Class 0; Rough Marsh Elder (W16) Ige <0.10 kU/L; Rough Marsh Elder Class 0; Sweet Vernal Class 0; Sweet Vernal Grass (G1) Ige <0.10 kU/L; Timothy Grass (G6) Ige <0.10 kU/L; Timothy Grass Class 0
[2020-08-09 16:48] LABS: Aspergillus Fumigatus, Igg Ab, 15.6 mg/L (<=102)
== END 2020-08-01 11:00 | disposition home or self-care (01) ==
PROVIDERS: PCP Family Medicine; Visit Provider Internal Medicine Pulmonary Disease
DX: R06.02 Shortness of breath (principal); J18.9 Pneumonia, unspecified organism; I70.0 Atherosclerosis of aorta; J43.9 Emphysema, unspecified
CPT/HCPCS: 36415; 71250; 82785; 85025; 86003; 94010; 94726; 94729

== ENCOUNTER → 2020-08-23 08:07 | Outpatient (BNVA) | payer MEDICARE, OTHER, SELFPAY | PROVIDERS: PCP Family Medicine; Visit Provider Anesthesiology | DX: G89.29 Other chronic pain (principal); M54.2 Cervicalgia; M54.9 Dorsalgia, unspecified; M51.36 Other intervertebral disc degeneration, lumbar region; Z79.899 Other long term (current) drug therapy; Z79.891 Long term (current) use of opiate analgesic | CPT/HCPCS: 99214 ==

== ENCOUNTER → 2020-09-19 08:12 | Outpatient (BNVA) | payer MEDICARE, OTHER, SELFPAY | PROVIDERS: PCP Family Medicine; Visit Provider Urology | DX: N39.9 Disorder of urinary system, unspecified (principal); Z12.5 Encounter for screening for malignant neoplasm of prostate | CPT/HCPCS: 81003; G0103 ==

== ENCOUNTER → 2020-11-01 07:54 | Outpatient (BNVA) | payer MEDICARE, OTHER, SELFPAY | PROVIDERS: PCP Family Medicine; Visit Provider Anesthesiology | DX: G89.29 Other chronic pain (principal); M51.36 Other intervertebral disc degeneration, lumbar region; M54.2 Cervicalgia; M54.9 Dorsalgia, unspecified; Z79.899 Other long term (current) drug therapy; Z79.891 Long term (current) use of opiate analgesic | CPT/HCPCS: 99214 ==

== ENCOUNTER → 2021-01-08 09:42 | Outpatient (BNVA) | payer MEDICARE, OTHER, SELFPAY | PROVIDERS: PCP Family Medicine; Visit Provider Nurse Practitioner | DX: G89.29 Other chronic pain (principal); M54.2 Cervicalgia; M51.36 Other intervertebral disc degeneration, lumbar region; Z79.891 Long term (current) use of opiate analgesic | CPT/HCPCS: 99213 ==

== ENCOUNTER → 2021-02-05 09:40 | Outpatient (BNVA) | payer MEDICARE, OTHER, SELFPAY | PROVIDERS: PCP Family Medicine; Visit Provider Family Medicine | DX: G25.0 Essential tremor (principal); E78.2 Mixed hyperlipidemia; I10 Essential (primary) hypertension; E11.65 Type 2 diabetes mellitus with hyperglycemia; M51.36 Other intervertebral disc degeneration, lumbar region; M54.5 Low back pain; G89.29 Other chronic pain; J30.89 Other allergic rhinitis | CPT/HCPCS: 80053; 80061; 83036; 84443; 85025 ==

== ENCOUNTER → 2021-02-20 08:05 | Outpatient (BNVA) | payer MEDICARE, OTHER, SELFPAY | PROVIDERS: PCP Family Medicine; Visit Provider Anesthesiology | DX: M54.2 Cervicalgia (principal) | CPT/HCPCS: 62321; 99212; J1040 ==

== ENCOUNTER → 2021-03-20 09:47 | Outpatient (BNVA) | payer MEDICARE, OTHER, SELFPAY | PROVIDERS: PCP Family Medicine; Visit Provider Anesthesiology | DX: G89.29 Other chronic pain (principal); M54.2 Cervicalgia; M51.36 Other intervertebral disc degeneration, lumbar region; Z79.891 Long term (current) use of opiate analgesic; Z87.891 Personal history of nicotine dependence | CPT/HCPCS: 99214 ==

== ENCOUNTER → 2021-03-26 07:37 | Outpatient (BNVA) | payer MEDICARE, OTHER, SELFPAY | PROVIDERS: PCP Family Medicine; Visit Provider Urology | DX: R97.20 Elevated prostate specific antigen [PSA] (principal); C61 Malignant neoplasm of prostate; N52.31 Erectile dysfunction following radical prostatectomy | CPT/HCPCS: 81003; 84153 ==

== ENCOUNTER → 2021-05-21 10:02 | Outpatient (BNVA) | payer MEDICARE, OTHER, SELFPAY | PROVIDERS: PCP Family Medicine; Visit Provider Family Medicine | DX: R31.9 Hematuria, unspecified (principal); M51.36 Other intervertebral disc degeneration, lumbar region; M54.2 Cervicalgia; G89.29 Other chronic pain; E11.65 Type 2 diabetes mellitus with hyperglycemia; I10 Essential (primary) hypertension; G25.0 Essential tremor; E78.2 Mixed hyperlipidemia; N20.0 Calculus of kidney; Z79.899 Other long term (current) drug therapy; R07.89 Other chest pain | CPT/HCPCS: 80053; 80061; 81003; 83036; 84443; 85025 ==

== ENCOUNTER 2021-05-22 13:19 | Outpatient (CLI) | payer MEDICARE, OTHER, SELFPAY ==
--- NOTE | 2021-05-22 13:34 | XR_ITS ---
WS: [id number] Exam: XR KUB [id number] Date/Time of Exam: 05/22/2021 1:34 PM Reason For Exam: KIDNEY STONE No bowel obstruction or free air. Mild ileus. No sign of organ enlargement. Right total hip replaceme nt. Bony structures are otherwise intact. 2 mm metallic density seen in the upper left abdomen may be within the GI tract. XR/XR KUB [id number] IMPRESSION: 1. Mild ileus. No acute abdominal process.
== END 2021-05-22 13:20 | disposition home or self-care (01) ==
PROVIDERS: PCP Family Medicine; Visit Provider Urology
DX: N20.0 Calculus of kidney (principal); K56.7 Ileus, unspecified
CPT/HCPCS: 74018; 81003; 87086

== ENCOUNTER 2021-06-12 06:38 | Outpatient (CLI) | payer MEDICARE, OTHER, SELFPAY ==
--- NOTE | 2021-06-12 07:00 | CTR_ITS ---
PROCEDURE INFORMATION: Exam: CT Abdomen And Pelvis Without Contrast Exam date and time: 06/12/2021 7:00 AM Age: 70 years old Clinical indication: Other: Hematuria; Prior surgery; Additional info: Urolithiasis, kub @ [facility], [place] on 06/12/21 @ 7. Appt to follow TECHNIQUE: Imaging protocol: Computed tomography of the abdomen and pelvis without contrast. Total images: 342 Radiation optimization: All CT scans at this facility use at least one of these dose optimization techniques: automated exposure control; mA and/or kV adjustment per patient size (includes targeted exams where dose is matched to clinical indication); or iterative reconstruction. COMPARISON: CT Abdomen/Pelvis Renal [id number] 04/28/2017 1:20 PM RADIATION DOSE METRICS: Total DLP (mGy-cm): 1154.74 FINDINGS: Lungs: Trace bibasilar atelectasis or scar. Liver: Normal. No mass. Gallbladder and bile ducts: Normal. No calcified stones. No ductal dilation. Pancreas: Normal. No ductal dilation. Spleen: Normal. No splenomegaly. Adrenal glands: Normal. No mass. Kidneys and ureters: Horseshoe kidney with 3 mm nonobstructing kidney stone in left moiety and 2 mm nonobstructing kidney stone in the right moiety. No ureteral nor bladder calculi detected. Stomach and bowel: There are a few colonic diverticuli present but no evidence of diverticulitis. Moderate stool burden. Appendix: No evidence of appendicitis. Intraperitoneal space: Unremarkable. No free air. No significant fluid collection. Vasculature: Incidental phleboliths noted. Lymph nodes: Unremarkable. No enlarged lymph nodes. Urinary bladder: See Kidneys and ureters finding. Reproductive: Unremarkable as visualized. Bones/joints: Right hip arthroplasty is present. Facet joint degenerative changes are present. Soft tissues: Bilateral fat-containing inguinal hernia. CT/CT kidney stone [id number] IMPRESSION: 1. Trace bibasilar atelectasis or scar. 2. Horseshoe kidney with 3 mm nonobstructing kidney stone in left moiety and 2 mm nonobstructing kidney stone in the right moiety. No ureteral nor bladder calculi detected. 3. Moderate stool burden. 4. No acute process identified.
== END 2021-06-12 06:39 | disposition home or self-care (01) ==
LOC: RAD 06:40
PROVIDERS: PCP Family Medicine; Visit Provider Urology
DX: N20.1 Calculus of ureter (principal); Q63.1 Lobulated, fused and horseshoe kidney
CPT/HCPCS: 74176; 81003

== ENCOUNTER → 2021-06-19 08:17 | Outpatient (BNVA) | payer MEDICARE, OTHER, SELFPAY | PROVIDERS: PCP Family Medicine; Visit Provider Anesthesiology | DX: G89.29 Other chronic pain (principal); M51.36 Other intervertebral disc degeneration, lumbar region; M54.2 Cervicalgia; Z79.899 Other long term (current) drug therapy; Z79.891 Long term (current) use of opiate analgesic | CPT/HCPCS: 99214 ==

== ENCOUNTER 2021-07-31 10:39 | Outpatient (CLI) | payer MEDICARE, OTHER, SELFPAY ==
--- NOTE | 2021-07-31 10:52 | XR_ITS ---
WS: [id number] Lateral views of cervical spine in the flexion, extension and neutral positions. 07/31/2021 Clinical Data: CERVICALGIA Comparison: Lateral cervical spine, 09/13/2006. Findings: There is anterior and posterior spurring at C5-C6, C6-C7 and C7-T1. No compression fractures are seen . There is degenerative disc narrowing at C5-C6. No compression fractures are seen. There is no preve rtebral soft tissue swelling. On flexion and extension there is no limitation of motion or subluxatio n. XR/XR cervical spine fl/ex [id number] Impression: 1. Anterior and posterior spurring from C5-C6 through C7-T1. 2. Degenerative disc narrowing at C5-C6. 3. Negative for limitation of motion or subluxation on flexion or extension.
--- NOTE | 2021-07-31 10:52 | MR_ITS ---
WS: [id number] MRI CERVICAL SPINE NONCONTRAST TECHNIQUE: Sagittal T1, T2 and STIR imaging. Axial T2, gradient, and fiesta imaging. CLINICAL INFORMATION: CERVICALGIA COMPARISON: MRI 2006 FINDINGS: Mild cervical curve. Exaggeration normal cervical lordosis. Disc space narrowing worse at C5-C6 and C 6-C7 with small disc osteophyte complexes. Degenerative disc disease has progressed since 2006. Cord signal is normal. No high-grade central canal stenosis. C2-C3: Mild LEFT and no significant RIGHT foraminal narrowing. Mild facet arthropathy. C3-C4: Mild disc osteophyte complex with endplate ridging. Mild LEFT and no significant RIGHT foramin al narrowing. Mild facet arthropathy. C4-C5: Disc osteophyte complex with endplate ridging. Mild central canal stenosis. Mild facet arthrop athy. Mild LEFT and no significant RIGHT foraminal narrowing. C5-C6: Disc osteophyte complex with endplate ridging. Mild central canal stenosis. Mild to moderate L EFT and no significant RIGHT foraminal narrowing. Mild facet arthropathy. C6-C7: Disc osteophyte complex with endplate ridging. Spinal canal is patent. Mild LEFT and no signif icant RIGHT foraminal narrowing. C7-T1: Mild disc bulging and osteophytic ridging. Spinal canal and foramen are patent. Visualized brain stem structures: Normal. Prevertebral soft tissues: Normal. MR/MR cervical spin wo con* [id number] IMPRESSION: 1. Exaggeration of the normal cervical lordosis. Disc osteophyte complexes at C5-C6 and C6-C7 progressed compared to 2006. 2. Mild central canal stenosis C4-C5 and C5-C6. 3. Mild to moderate bony foraminal narrowing LEFT C4-C5, LEFT C5-C6, and LEFT C6-C7. This is worse at LEFT C6-C7.
== END 2021-07-31 10:40 | disposition home or self-care (01) ==
PROVIDERS: PCP Family Medicine; Visit Provider Nurse Practitioner
DX: M25.78 Osteophyte, vertebrae (principal); M48.02 Spinal stenosis, cervical region
CPT/HCPCS: 72040; 72141

== ENCOUNTER → 2021-09-04 15:14 | Outpatient (BNVA) | payer MEDICARE, OTHER, SELFPAY | PROVIDERS: PCP Family Medicine; Visit Provider Internal Medicine Cardiovascular Disease | DX: R07.89 Other chest pain (principal); I49.9 Cardiac arrhythmia, unspecified; E11.65 Type 2 diabetes mellitus with hyperglycemia; E78.2 Mixed hyperlipidemia; I10 Essential (primary) hypertension; Z87.891 Personal history of nicotine dependence | CPT/HCPCS: 99214 ==

== ENCOUNTER 2021-10-02 07:14 | Outpatient (CLI) | payer MEDICARE, OTHER, SELFPAY ==
--- NOTE | 2021-10-02 07:38 | XR_ITS ---
WS: [id number] Exam: XR KUB [id number] Date/Time of Exam: 10/02/2021 7:39 AM Reason For Exam: CALCULUS UPPER URINARY TRACT 3 mm calcification seen in the mid left abdomen is nonspecific but could represent a urinary tract st one. No bowel obstruction or free air. Moderate amount stool in the right colon. No sign of organ enl argement. Right-sided total hip replacement. Bony structures are otherwise intact. XR/XR KUB [id number] IMPRESSION: 1. 3 mm left abdominal calcification that is nonspecific but could represent a urinary tract stone. No acute abdominal process.
== END 2021-10-02 07:15 | disposition home or self-care (01) ==
LOC: RAD 07:15
PROVIDERS: PCP Family Medicine; Visit Provider Urology
DX: N20.9 Urinary calculus, unspecified (principal); N52.9 Male erectile dysfunction, unspecified; C61 Malignant neoplasm of prostate
CPT/HCPCS: 74018; 81003; 84153

== ENCOUNTER → 2021-10-22 12:59 | Outpatient (BNVA) | payer MEDICARE, OTHER, SELFPAY | PROVIDERS: PCP Family Medicine; Visit Provider Internal Medicine Cardiovascular Disease | DX: R94.31 Abnormal electrocardiogram [ECG] [EKG] (principal) | CPT/HCPCS: 93005 ==

== ENCOUNTER → 2021-11-19 12:41 | Outpatient (BNVA) | payer MEDICARE, OTHER, SELFPAY | PROVIDERS: PCP Family Medicine; Visit Provider Internal Medicine Cardiovascular Disease | DX: I49.9 Cardiac arrhythmia, unspecified (principal); E11.65 Type 2 diabetes mellitus with hyperglycemia; G47.33 Obstructive sleep apnea (adult) (pediatric); E78.2 Mixed hyperlipidemia; I10 Essential (primary) hypertension; Z79.899 Other long term (current) drug therapy; Z87.891 Personal history of nicotine dependence; Z79.84 Long term (current) use of oral hypoglycemic drugs | CPT/HCPCS: 99213; 99214 ==

== ENCOUNTER → 2022-01-23 10:00 | Outpatient (BNVA) | payer MEDICARE, OTHER, SELFPAY | PROVIDERS: PCP Family Medicine; Visit Provider Family Medicine | DX: E11.65 Type 2 diabetes mellitus with hyperglycemia (principal); G25.0 Essential tremor; E78.2 Mixed hyperlipidemia; I10 Essential (primary) hypertension; E55.9 Vitamin D deficiency, unspecified; Z79.899 Other long term (current) drug therapy; M51.36 Other intervertebral disc degeneration, lumbar region; G89.29 Other chronic pain; J30.89 Other allergic rhinitis; J30.9 Allergic rhinitis, unspecified | CPT/HCPCS: 80053; 80061; 82306; 83036; 84443; 85025 ==

== ENCOUNTER → 2022-06-30 11:08 | Outpatient (BNVA) | payer MEDICARE, OTHER, SELFPAY | PROVIDERS: PCP Family Medicine; Visit Provider Family Medicine | DX: E55.9 Vitamin D deficiency, unspecified (principal); E11.9 Type 2 diabetes mellitus without complications; E78.2 Mixed hyperlipidemia; I10 Essential (primary) hypertension; Z79.899 Other long term (current) drug therapy | CPT/HCPCS: 80053; 80061; 82306; 83036; 84443; 85025 ==

== ENCOUNTER 2022-08-18 15:45 | Outpatient (CLI) | payer MEDICARE, OTHER, SELFPAY ==
[2022-08-18 16:43] LABS: Prostate Specific AG Urology < 0.01 ng/mL (0-4)
== END 2022-08-18 15:46 | disposition home or self-care (01) ==
LOC: LAB 15:50
PROVIDERS: PCP Family Medicine; Visit Provider Urology
DX: C61 Malignant neoplasm of prostate (principal)
CPT/HCPCS: 36415; 84153

== ENCOUNTER → 2022-12-08 09:22 | Outpatient (BNVA) | payer MEDICARE, OTHER, SELFPAY | PROVIDERS: PCP Family Medicine; Visit Provider Family Medicine | DX: I10 Essential (primary) hypertension (principal); E78.2 Mixed hyperlipidemia; E11.9 Type 2 diabetes mellitus without complications; R07.89 Other chest pain; Z79.899 Other long term (current) drug therapy; E55.9 Vitamin D deficiency, unspecified; W57.XXXA Bitten or stung by nonvenomous insect and other nonvenomous arthropods, initial encounter; M51.36 Other intervertebral disc degeneration, lumbar region; G89.29 Other chronic pain; E11.65 Type 2 diabetes mellitus with hyperglycemia; J30.89 Other allergic rhinitis; G25.0 Essential tremor | CPT/HCPCS: 80053; 80061; 82306; 83036; 84443; 85025; 86003; 86008 ==

== ENCOUNTER → 2022-12-22 10:10 | Outpatient (BNVA) | payer MEDICARE, OTHER, SELFPAY | PROVIDERS: PCP Family Medicine; Visit Provider Internal Medicine Cardiovascular Disease | DX: I49.8 Other specified cardiac arrhythmias (principal); G47.33 Obstructive sleep apnea (adult) (pediatric); Z99.89 Dependence on other enabling machines and devices; E11.65 Type 2 diabetes mellitus with hyperglycemia; Z79.84 Long term (current) use of oral hypoglycemic drugs; E78.2 Mixed hyperlipidemia; I10 Essential (primary) hypertension; Z87.891 Personal history of nicotine dependence | CPT/HCPCS: 99214 ==

== ENCOUNTER → 2023-03-05 11:11 | Outpatient (BNVA) | payer MEDICARE, OTHER, SELFPAY | PROVIDERS: PCP Family Medicine; Visit Provider Nurse Practitioner Family | DX: I10 Essential (primary) hypertension (principal); I49.9 Cardiac arrhythmia, unspecified; Z87.891 Personal history of nicotine dependence | CPT/HCPCS: 99214 ==

== ENCOUNTER → 2023-03-09 09:52 | Outpatient (BNVA) | payer MEDICARE, OTHER, SELFPAY | PROVIDERS: PCP Family Medicine; Visit Provider Family Medicine | DX: E11.9 Type 2 diabetes mellitus without complications (principal); E55.9 Vitamin D deficiency, unspecified; E78.2 Mixed hyperlipidemia; I10 Essential (primary) hypertension; E11.65 Type 2 diabetes mellitus with hyperglycemia; Z79.899 Other long term (current) drug therapy; M51.36 Other intervertebral disc degeneration, lumbar region; G89.29 Other chronic pain; J30.89 Other allergic rhinitis; G25.0 Essential tremor | CPT/HCPCS: 80053; 80061; 82306; 83036; 84443; 85025 ==

== ENCOUNTER → 2023-05-21 12:15 | Outpatient (BNVA) | payer MEDICARE, OTHER, SELFPAY | PROVIDERS: PCP Family Medicine; Visit Provider Family Medicine | DX: I10 Essential (primary) hypertension (principal); E78.2 Mixed hyperlipidemia; M51.36 Other intervertebral disc degeneration, lumbar region; G89.29 Other chronic pain; E11.65 Type 2 diabetes mellitus with hyperglycemia; J30.89 Other allergic rhinitis; E55.9 Vitamin D deficiency, unspecified; G25.0 Essential tremor; E11.9 Type 2 diabetes mellitus without complications; Z79.899 Other long term (current) drug therapy | CPT/HCPCS: 80053; 80061; 83036; 84443; 85025 ==

== ENCOUNTER → 2023-07-01 12:06 | Outpatient (BNVA) | payer MEDICARE, OTHER, SELFPAY | PROVIDERS: PCP Family Medicine; Visit Provider Internal Medicine Cardiovascular Disease | DX: R07.9 Chest pain, unspecified (principal); I45.10 Unspecified right bundle-branch block; I49.9 Cardiac arrhythmia, unspecified; I10 Essential (primary) hypertension; E78.2 Mixed hyperlipidemia; R94.31 Abnormal electrocardiogram [ECG] [EKG]; Z79.899 Other long term (current) drug therapy | CPT/HCPCS: 93005; 99214 ==

== ENCOUNTER → 2023-08-20 09:30 | Outpatient (BNVA) | payer MEDICARE, OTHER, SELFPAY | PROVIDERS: PCP Family Medicine; Visit Provider Family Medicine | DX: I10 Essential (primary) hypertension (principal); E78.2 Mixed hyperlipidemia; E11.65 Type 2 diabetes mellitus with hyperglycemia; Z79.899 Other long term (current) drug therapy; R07.89 Other chest pain; C61 Malignant neoplasm of prostate; N20.0 Calculus of kidney | CPT/HCPCS: 80053; 80061; 83036; 84443; 85025 ==

== ENCOUNTER 2023-09-06 22:59 | Emergency (ER) | payer MEDICARE, OTHER, SELFPAY ==
[2023-09-06 23:11] VITALS: BP 150/76; PULSE 69; RESP 16; TEMP 36.3; O2SAT 94
[2023-09-06 23:14] VITALS: BP 158/82; PULSE 74; O2SAT 94
--- NOTE | 2023-09-06 23:31 | CTR_ITS ---
PROCEDURE INFORMATION: Exam: CT Abdomen And Pelvis Without Contrast Exam date and time: 09/06/2023 11:44 PM Age: 72 years old Clinical indication: Abdominal pain; Prior surgery; Surgery date: 6+ months; Surgery type: [place]. [place]. Prostate. Patient HX: C/O left flank pain. History of prostate cancer. ; Additional info: Left flank/llq pain TECHNIQUE: Imaging protocol: Computed tomography of the abdomen and pelvis without contrast. Radiation optimization: All CT scans at this facility use at least one of these dose optimization techniques: automated exposure control; mA and/or kV adjustment per patient size (includes targeted exams where dose is matched to clinical indication); or iterative reconstruction. COMPARISON: CT kidney stone [id number] 06/12/2021 7:04 AM RADIATION DOSE METRICS: Total DLP (mGy-cm): 907.27 FINDINGS: Liver: The liver is diffusely low in attenuation consistent with hepatic steatosis. Gallbladder and bile ducts: Normal. No calcified stones. No ductal dilation. Pancreas: Normal. No ductal dilation. Spleen: Normal. No splenomegaly. Adrenal glands: Normal. No mass. Kidneys and ureters: There is a horseshoe kidney with an obstructing 6 mm stone in the distal left ureter with upstream hydroureter mild hydronephrosis. Stomach and bowel: Unremarkable. No obstruction. No mucosal thickening. Appendix: The appendix is not visualized but there are no secondary signs of acute appendicitis. Intraperitoneal space: Unremarkable. No free air. No significant fluid collection. Vasculature: Unremarkable. No abdominal aortic aneurysm. Lymph nodes: Unremarkable. No enlarged lymph nodes. Urinary bladder: Unremarkable as visualized. Reproductive: Unremarkable as visualized. Bones/joints: Total right hip arthroplasty without evidence of hardware failure or loosening Soft tissues: There is a fat containing left inguinal hernia. CT/CT kidney stone [id number] IMPRESSION: There is a horseshoe kidney with an obstructing 6 mm stone in the distal left ureter with upstream hydroureter mild hydronephrosis.
[2023-09-06 23:40] LABS: Basophils % 0.8 %; Eosinophils # 0.2 10^3/uL (0.0-0.8); Eosinophils % 3.1 %; Hematocrit 42.9 % (37-53); Lymphocytes # 1.1 10^3/uL (0.8-4.8); Lymphocytes % 22.4 %; Mean Corpuscular HGB Conc 34.5 g/dL (30-55); Mean Corpuscular Volume 92.7 fl (82-101); Mean Platelet Volume 9.1 fL (7.4-10.4); Monocytes # 0.6 10^3/uL (0.2-0.9); Monocytes % 11.6 %; Neutrophils # 3.04 10^3/uL (1.8-7.7); Neutrophils % 61.9 %; Nucleated Red Blood Cells % 0 %; Platelet Count 210 10^3/cmm (157-399); Red Blood Count 4.63 10^6/uL (3.85-5.65); Red Cell Distribution Width 11.9 % (12.1-15.1); White Blood Count 4.91 10^3/uL (3.29-11.43)
--- NOTE | 2023-09-06 23:42 | W.ED.ABDPA2 ---
Documented by User: DONTAE German 09/06/23 23:46 HPI - Abdominal Pain General: Chief Complaint: Abdominal Pain Stated Complaint: low left abd/ side/ back pain Time Seen by Provider: 09/06/23 23:24 Source: patient Mode of arrival: ambulatory Limitations: no limitations History of Present Illness: Patient is a 72-year-old male who presents to the emergency department complaining of left flank pain onset today. Patient reports history of kidney stones and states that this pain feels similar. It began in the left flank and has slowly migrated into the left lower quadrant and left groin. He denies any blood in his urine but does state that it is increasingly harder for him to urinate, and he tried prior to present to the ED and was unable to. Reports some associated nausea but denies any vomiting, fevers, chest pain, breathing difficulties, or any other symptoms at this time. He does state he took some Zofran prior to arrival, as well as some Tylenol that did not help his pain. He has history of prostatectomy due to prostate cancer in 2018, and is due to see a new urologist next month. MD elicited complaint: abdominal pain and flank pain Pertinent past history: kidney stones Onset (ago): hour(s) Pain Consistency: constant Location: LLQ, L flank and Groin Severity: severe Pain scale (0-10): 8 Quality: stabbing Relieving factors: nothing Context: history of similar episodes Associated Symptoms: Reports nausea; Denies bloating, change in stool character, chills, constipation, diarrhea, dysuria, fever(s), hematochezia, hematuria and vomiting Review of Systems General: Reports: 10 or more systems reviewed and unremarkable except in HPI and below Const: Denies: fever(s), chills, change in appetite, change in weight or diaphoresis ENMT: Denies: throat pain or hoarseness Card: Denies: chest pain, palpitations or lightheadedness Resp: Denies: dyspnea, productive cough or wheezing GI: Reports: abdominal pain and nausea; Denies: vomiting, diarrhea, constipation, bloating, change in stool character or hematochezia : Reports: flank pain and difficulty urinating; Denies: dysuria, urinary frequency, urinary urgency or hematuria Musc: Denies: neck pain or back pain Skin/Breast: Denies: rash or new lesions Neuro: Denies: headache(s) or dizziness PFSH ED PFSH: Medical History Male stress incontinence Radiation cystitis Urolithiasis Gross hematuria Erectile dysfunction MARCELINO (obstructive sleep apnea) Type 2 diabetes mellitus Fatigue Post-procedural erectile dysfunction Prostate cancer Ventricular arrhythmia Mixed hyperlipidemia Medication refill Environmental and seasonal allergies Skin graft (allograft) (autograft) failure Tonsillectomy planned Abnormal prostate biopsy Opioid contract exists Encounter for long-term use of opiate analgesic Multilevel degenerative disc disease Back Pain Cervical spine pain Chronic low back pain Degeneration of lumbar intervertebral disc Essential hypertension Type 2 diabetes mellitus Palpitation (~06/2019) Atypical chest pain Surgical History Hx of colonoscopy (~01/2018) History of hip replacement right History of appendectomy S/P ureteral stent placement History of prostatectomy H/O adenoidectomy H/O lateral meniscus repair of left knee Family History Father , at age 88 Myocardial infarction (lateral wall) Mother , at age 53 Prostate cancer Aneurysm Other CAD (coronary artery disease) Diabetes Social History Smoking and tobacco/nicotine status: former use of tobacco/nicotine Quit status (tobacco/nicotine): has quit using Year quit tobacco: 1971 6yr hx Second hand smoke exposure: No Alcohol intake: never Substance/Drug Use: never Caregiver/support person: No Lives independently: Yes Household members: spouse Marital status: service: No Current occupational status: employed 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 Pets and animals: Yes Do you think of yourself as: Straight/Heterosexual Current gender identity: Male Physical Exam Const: COMMON NORMALS: no acute distress, average body habitus, patient oriented x3, no limitations, healthy appearing, alert and well nourished GENERAL APPEARANCE: cooperative and comfortable ORIENTATION/CONSCIOUSNESS: Yes awake HENMT: COMMON NORMALS: normocephalic, atraumatic, hearing grossly normal bilaterally, external ears normal, Normal external nose present, Normal nasal mucous membranes and turbinates present and moist oral mucous membranes HEAD & SCALP: normocephalic and atraumatic NOSE: Normal external nose present and Normal nasal mucous membranes and turbinates present EXTERNAL EAR: Yes external ears normal Eye: COMMON NORMALS: Equal, round and reactive pupils present, EOMs intact bilaterally, conjunctivae normal and normal visual milton by confrontation CONJUNCTIVA: Yes conjunctivae normal PUPIL: Yes Equal, round and reactive pupils present Neck/C-Spine: COMMON NORMALS: full ROM, supple, no meningeal signs and no JVD Resp: COMMON NORMALS: normal respiratory effort, No retractions, No use of accessory muscles and clear to auscultation bilaterally AUSCULTATION: clear to auscultation bilaterally, no crackles, no rales, no rhonchi and no wheezes Cardio: COMMON NORMALS: no JVD, regular rate, regular rhythm, S1 normal heart sound present, S2 normal heart sound present, No gallops present (Cardio), No clicks present (Cardio), No murmurs present (Cardio), No rub (Cardio) and Peripheral pulses 2+ throughout RATE: regular rate RHYTHM: regular rhythm HEART SOUNDS: S1 normal heart sound present and S2 normal heart sound present PERIPHERAL PULSES: Peripheral pulses 2+ throughout GI: COMMON NORMALS: Normal to inspection, nondistended, normoactive bowel sounds present, Soft to palpation, No hepatosplenomegaly present and no masses INSPECTION: Yes central obesity AUSCULTATION: Yes normoactive bowel sounds PALPATION: Yes Soft to palpation, Yes Tenderness to palpation present (GI) Details: LLQ, No Guarding due to palpation present (GI), No Rigid due to palpation and Yes No hepatosplenomegaly present RECTAL EXAM: Yes deferred : BLADDER/KIDNEY EXAM: Yes CVA tenderness on the left Back/Pelvis: GENERAL BACK: Yes CVA tenderness Extremity: COMMON NORMALS: normal to inspection and full ROM Neuro: COMMON NORMALS: patient oriented x3, moves all extremities, no focal motor deficits and no sensory deficits noted SENSORIUM/ORIENTATION: Yes alert MENINGEAL SIGNS: Yes no meningeal signs Psych: COMMON NORMALS: mental status grossly normal, cooperative and speech normal SPEECH: Yes normal speech Skin: COMMON NORMALS: no rashes or lesions noted GENERAL SKIN EXAM: no rashes or lesions noted Course Vital Signs: Vital signs: Vital Signs Temperature 97.4 F L 09/06/23 23:11 Pulse Rate 65 09/07/23 00:39 Respiratory Rate 16 09/07/23 00:39 Blood Pressure 121/68 09/07/23 01:00 Pulse Oximetry 96 09/07/23 01:00 Oxygen Delivery Me thod Room Air 09/07/23 01:00 Oxygen Flow Rate 2 09/07/23 00:39 MDM - Abdominal Pain Lab Data 09/06/23 23:29 09/06/23 23:29 Labs/Radiology: Radiology Impressions Abdomen/Pelvis CT 09/06/23 23:31 IMPRESSION: There is a horseshoe kidney with an obstructing 6 mm stone in the distal left ureter with upstream hydroureter mild hydronephrosis. Laboratory Results WBC 4.91 10^3/uL (3.29-11.43) 09/06/23 23: RBC 4.63 10^6/uL (3.85-5.65) 09/06/23 23: Hgb 14.80 g/dL (11.27-16.99) 09/06/23 23: Hct 42.9 % (37-53) 09/06/23 23: MCV 92.7 fl (82-101) 09/06/23 23: MCH 32.0 pg (27-33) 09/06/23 23: MCHC 34.5 g/dL (30-55) 09/06/23 23: RDW 11.9 % (12.1-15.1) L 09/06/23 23: Plt Count 210 10^3/cmm (157-399) 09/06/23 23: MPV 9.1 fL (7.4-10.4) 09/06/23 23: Neut % (Auto) 61.9 % 09/06/23 23: Lymph % (Auto) 22.4 % 09/06/23 23: [place] % (Auto) 11.6 % 09/06/23 23: Eos % (Auto) 3.1 % 09/06/23 23: Baso % (Auto) 0.8 % 09/06/23 23: Neut # (Auto) 3.04 10^3/uL (1.8-7.7) 09/06/23 23: Lymph # (Auto) 1.1 10^3/uL (0.8-4.8) 09/06/23 23: [place] # (Auto) 0.6 10^3/uL (0.2-0.9) 09/06/23 23:29 Eos # (Auto) 0.2 10^3/uL (0.0-0.8) 09/06/23 23: Baso # (Auto) 0.0 10^3/uL (0.0-0.1) 09/06/23 23: Nucleated RBC % (auto) 0 % 09/06/23 23: Nucleated RBCs # 0.0 /100WBC 09/06/23 23: Sodium 141 mmol/L (136-145) 09/06/23 23: Potassium 4.2 mmol/L (3.5-5.1) 09/06/23 23: Chloride 104 mmol/L (98-107) 09/06/23 23: Carbon Dioxide 27 mmol/L (22-29) 09/06/23 23: Anion Gap 14.2 (5-19) 09/06/23 23: BUN 21 mg/dL (8-23) 09/06/23 23: Creatinine 1.2 mg/dL (0.7-1.2) 09/06/23 23: GFR Calculation 59.9 mL/min (90-130) L 09/06/23 23: Glucose 168 mg/dL (65-115) H 09/06/23 23: Calculated Osmolality 299 mOsm/kg (285-295) H 09/06/23 23: Calcium 9.1 mg/dL (8.5-10.5) 09/06/23 23: Total Bilirubin 0.2 mg/dL (0.15-1.2) 09/06/23 23: AST 15 U/L (0-40) 09/06/23 23: ALT 14 U/L (0-41) 09/06/23 23: Alkaline Phosphatase 72 U/L (40-130) 09/06/23 23: Total Protein 6.4 g/dL (6.6-8.7) L 09/06/23 23: Albumin 4.3 g/dL (3.5-5.2) 09/06/23 23: Globulin 2.1 g/dL (1.3-4.6) 09/06/23 23:29 Lipase 30 U/L (13-60) 09/06/23 23:29 Urine Color Yellow (Yellow) 09/06/23 23:59 Urine Appearance Clear (CLEAR) 09/06/23 23:59 Urine pH 6 (5-7) 09/06/23 23:59 Ur Specific Holly 1.015 (1.005-1.030) 09/06/23 23:59 Urine Protein Neg (Negative) 09/06/23 23:59 Urine Glucose (UA) 2+ (Normal) H 09/06/23 23:59 Urine Ketones Negative (Negative) 09/06/23 23:59 Urine Blood Neg (Negative) 09/06/23 23:59 Urine Nitrate Negative (Negative) 09/06/23 23:59 Urine Bilirubin Neg (Negative) 09/06/23 23:59 Urine Urobilinogen Neg mg/dL (Negative) 09/06/23 23:59 Ur Leukocyte Esterase Negative (Negative) 09/06/23 23:59 Discharge Plan Discharge Patient Disposition: Home Clinical Impression: Renal colic on left side, Renal calculus, left, Horseshoe kidney, Acute left flank pain Condition: Stable Prescriptions: New hydrocodone-acetaminophen 5-325 mg tablet 1 tab PO Q8H PRN (Reason: pain) Qty: 14 0RF ondansetron HCl 4 mg tablet 4 mg PO Q6H PRN (Reason: nausea and vomiting) Qty: 14 0RF naproxen 500 mg tablet 500 mg PO Q12H PRN (Reason: pain) Qty: 20 0RF tamsulosin [Flomax] 0.4 mg capsule 0.4 mg PO DAILY Qty: 30 0RF No Action magnesium oxide 400 mg (241.3 mg magnesium) tablet 400 mg PO BID cholecalciferol (vitamin D3) 125 mcg (5,000 unit) capsule 125 mcg PO DAILY Zyrtec 10 mg capsule 10 mg PO DAILY flecainide 100 mg tablet 100 mg PO .COMPLEX Qty: 60 5RF Rx Instructions: 100 mg orally; 07/02/23 take 100mg every morning and 50mg every evening meloxicam 15 mg tablet See Rx Instructions .ROUTE .COMPLEX Qty: 90 3RF Hold Instructions: Resume on 04/22/20. Dose Instruction: TAKE 1 TABLET BY MOUTH DAILY Rx Instructions: TAKE 1 TABLET BY MOUTH DAILY montelukast 10 mg tablet See Rx Instructions .ROUTE .COMPLEX Qty: 90 2RF Dose Instruction: TAKE 1 TABLET BY MOUTH DAILY Rx Instructions: TAKE 1 TABLET BY MOUTH DAILY tizanidine 4 mg tablet See Rx Instructions .ROUTE .COMPLEX Qty: 60 3RF Dose Instruction: TAKE 1 TABLET BY MOUTH TWICE DAILY NEEDED FOR MUSCLE PAIN Rx Instructions: TAKE 1 TABLET BY MOUTH TWICE DAILY NEEDED FOR MUSCLE PAIN triamcinolone acetonide 0.1 % cream 1 applic TOPICAL BID PRN (Reason: Skin Irritation) Qty: 80 2RF potassium chloride 8 mEq capsule, extended release See Rx Instructions .ROUTE .COMPLEX Qty: 90 3RF Dose Instruction: TAKE 1 CAPSULE BY MOUTH DAILY NEEDED WITH LASIX Rx Instructions: TAKE 1 CAPSULE BY MOUTH DAILY NEEDED WITH LASIX losartan 50 mg tablet 50 mg PO DAILY Qty: 30 1RF glimepiride 2 mg tablet See Rx Instructions .ROUTE .COMPLEX Qty: 90 3RF Dose Instruction: TAKE 1 TABLET BY MOUTH DAILY Rx Instructions: TAKE 1 TABLET BY MOUTH DAILY gabapentin 300 mg capsule See Rx Instructions .ROUTE .COMPLEX Qty: 270 3RF Dose Instruction: TAKE 1 CAPSULE BY MOUTH THREE TIMES DAILY Rx Instructions: TAKE 1 CAPSULE BY MOUTH THREE TIMES DAILY furosemide [Lasix] 20 mg tablet 20 mg PO DAILY PRN (Reason: edema) 30 Days Qty: 90 3RF fenofibrate 160 mg tablet See Rx Instructions .ROUTE .COMPLEX Qty: 90 2RF Dose Instruction: TAKE ONE TABLET BY MOUTH DAILY Rx Instructions: TAKE ONE TABLET BY MOUTH DAILY amlodipine 10 mg tablet See Rx Instructions .ROUTE .COMPLEX Qty: 90 2RF Dose Instruction: TAKE 1 TABLET BY MOUTH DAILY Rx Instructions: TAKE 1 TABLET BY MOUTH DAILY metformin 500 mg tablet See Rx Instructions .ROUTE .COMPLEX Qty: 360 3RF Dose Instruction: TAKE 2 TABLETS BY MOUTH TWICE DAILY Rx Instructions: TAKE 2 TABLETS BY MOUTH TWICE DAILY metoprolol succinate 100 mg tablet extended release 24 hr 100 mg PO DAILY Qty: 90 3RF primidone 250 mg tablet 250 mg PO BID Qty: 60 3RF atorvastatin 80 mg tablet 80 mg PO DAILY 30 Days Qty: 30 2RF Discharge Orders: Discharge ED (Routine); Ordered 09/07/23 Ordered By: Jeevan Oglesby Referrals: Adalgisa Shane MD [Primary Care Provider] - Discharge Diet: Usual diet Discharge Activity: Resume usual activity Patient Instructions: Abdominal Pain (ED), Opioid Safety, Pain Management Activity Restrictions/Additional Instructions: Activity Restrictions/Additional Instructions: Thank you [facility] your healthcare needs today. Please realize that you were seen in the Emergency Department and that we are providing you with an emergency medical screening exam and this may not be a complete and all inclusive of all the testing and or medical work-up that you may need to determine your ailment or severity of your illness. It is very important that you follow-up as instructed with your Primary care provider or Specialist for additional evaluation and to discuss your medical treatment plan. You may return to the Emergency Department should you have concerns or if your condition changes or worsens in any way. Call to make a Follow-up appointment: [facility] [address] [place] [address] Phone--[phone] Coding Level of Care Code ED Clinical Product Specialist for Chg Fwd Documented by User: Jeevan Oglesby MD 09/07/23 02:22 HPI - Abdominal Pain General: Chief Complaint: Abdominal Pain Stated Complaint: low left abd/ side/ back pain Time Seen by Provider: 09/06/23 23:24 [facility] ED PFSH: Medical History Male stress incontinence Radiation cystitis Urolithiasis Gross hematuria Erectile dysfunction MARCELINO (obstructive sleep apnea) Type 2 diabetes mellitus Fatigue Post-procedural erectile dysfunction Prostate cancer Ventricular arrhythmia Mixed hyperlipidemia Medication refill Environmental and seasonal allergies Skin graft (allograft) (autograft) failure Tonsillectomy planned Abnormal prostate biopsy Opioid contract exists Encounter for long-term use of opiate analgesic Multilevel degenerative disc disease Back Pain Cervical spine pain Chronic low back pain Degeneration of lumbar intervertebral disc Essential hypertension Type 2 diabetes mellitus Palpitation (~06/2019) Atypical chest pain Surgical History Hx of colonoscopy (~01/2018) History of hip replacement right History of appendectomy S/P ureteral stent placement History of prostatectomy H/O adenoidectomy H/O lateral meniscus repair of left knee Family History Father , at age 88 Myocardial infarction (lateral wall) Mother , at age 53 Prostate cancer Aneurysm Other CAD (coronary artery disease) Diabetes Social History Smoking and tobacco/nicotine status: former use of tobacco/nicotine Quit status (tobacco/nicotine): has quit using Year quit tobacco: 1971 8yr hx Second hand smoke exposure: No Alcohol intake: never Substance/Drug Use: never Caregiver/support person: No Lives independently: Yes Household members: spouse Marital status: service: No Current occupational status: employed 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 Pets and animals: Yes Do you think of yourself as: Straight/Heterosexual Current gender identity: Male Course Vital Signs: Vital signs: Vital Signs Temperature 97.4 F L 09/06/23 23:11 Pulse Rate 65 09/07/23 00:39 Respiratory Rate 16 09/07/23 00:39 Blood Pressure 121/68 09/07/23 01:00 Pulse Oximetry 96 09/07/23 01:00 Oxygen Delivery Me thod Room Air 09/07/23 01:00 Oxygen Flow Rate 2 09/07/23 00:39 MDM - Abdominal Pain Medical Decision Making I discussed the patient's history of present illness, physical exam findings, pertinent labs, pertinent radiographic exams and plan of care with the midlevel provider. I did personally have a [id number] evaluation and discussion with the patient regarding the plan of care and the need for further evaluation and treatment. Medical Records I reviewed the patient's medical records. Lab Data I reviewed the patient's lab results. 09/06/23 23:29 09/06/23 23:29 Labs/Radiology: Radiology Impressions Abdomen/Pelvis CT 09/06/23 23:31 IMPRESSION: There is a horseshoe kidney with an obstructing 6 mm stone in the distal left ureter with upstream hydroureter mild hydronephrosis. Laboratory Results WBC 4.91 10^3/uL (3.29-11.43) 09/06/23 23:29 RBC 4.63 10^6/uL (3.85-5.65) 09/06/23 23:29 Hgb 14.80 g/dL (11.27-16.99) 09/06/23: Hct 42.9 % (37-53) 09/06/23: MCV 92.7 fl (82-101) 09/06/23 23: MCH 32.0 pg (27-33) 09/06/23: MCHC 34.5 g/dL (30-55) 09/06/23: RDW 11.9 % (12.1-15.1) L 09/06/23: Plt Count 210 10^3/cmm (157-399) 09/06/23: MPV 9.1 fL (7.4-10.4) 09/06/23: Neut % (Auto) 61.9 % 09/06/23: Lymph % (Auto) 22.4 % 09/06/23: [place] % (Auto) 11.6 % 09/06/23: Eos % (Auto) 3.1 % 09/06/23: Baso % (Auto) 0.8 % 09/06/23: Neut # (Auto) 3.04 10^3/uL (1.8-7.7) 09/06/23: Lymph # (Auto) 1.1 10^3/uL (0.8-4.8) 09/06/23: [place] # (Auto) 0.6 10^3/uL (0.2-0.9) 09/06/23: Eos # (Auto) 0.2 10^3/uL (0.0-0.8) 09/06/23: Baso # (Auto) 0.0 10^3/uL (0.0-0.1) 09/06/23 Nucleated RBC % (auto) 0 % 09/06/23 Nucleated RBCs # 0.0 /100WBC 09/06/23: Sodium 141 mmol/L (136-145) 09/06/23: Potassium 4.2 mmol/L (3.5-5.1) 09/06/23: Chloride 104 mmol/L (98-107) 03/25/24 23:29 Carbon Dioxide 27 mmol/L (22-29) 09/06/23 23:29 Anion Gap 14.2 (5-19) 09/06/23 23:29 BUN 21 mg/dL (8-23) 09/06/23 23:29 Creatinine 1.2 mg/dL (0.7-1.2) 09/06/23 23:29 GFR Calculation 59.9 mL/min (90-130) L 09/06/23 23: Glucose 168 mg/dL (65-115) H 09/06/23 23:29 Calculated Osmolality 299 mOsm/kg (285-295) H 09/06/23 23: Calcium 9.1 mg/dL (8.5-10.5) 09/06/23 23: Total Bilirubin 0.2 mg/dL (0.15-1.2) 09/06/23 23: AST 15 U/L (0-40) 09/06/23 23: ALT 14 U/L (0-41) 09/06/23 23: Alkaline Phosphatase 72 U/L (40-130) 09/06/23 23:29 Total Protein 6.4 g/dL (6.6-8.7) L 09/06/23 23: Albumin 4.3 g/dL (3.5-5.2) 09/06/23 23: Globulin 2.1 g/dL (1.3-4.6) 09/06/23 23: Lipase 30 U/L (13-60) 09/06/23 23:29 Urine Color Yellow (Yellow) 09/06/23 23:59 Urine Appearance Clear (CLEAR) 09/06/23 23:59 Urine pH 6 (5-7) 09/06/23 23:59 Ur Specific Holly 1.015 (1.005-1.030) 09/06/23 23:59 Urine Protein Neg (Negative) 09/06/23 23:59 Urine Glucose (UA) 2+ (Normal) H 09/06/23 23:59 Urine Ketones Negative (Negative) 09/06/23 23:59 Urine Blood Neg (Negative) 09/06/23 23:59 Urine Nitrate Negative (Negative) 09/06/23 23:59 Urine Bilirubin Neg (Negative) 09/06/23 23:59 Urine Urobilinogen Neg mg/dL (Negative) 09/06/23 23:59 Ur Leukocyte Esterase Negative (Negative) 09/06/23 23:59 All radiology interpretation(s) finalized by discharge Discharge Plan Discharge Patient Disposition: Home Clinical Impression: Renal colic on left side, Renal calculus, left, Horseshoe kidney, Acute left flank pain Condition: Stable Prescriptions: New hydrocodone-acetaminophen 5-325 mg tablet 1 tab PO Q8H PRN (Reason: pain) Qty: 14 0RF ondansetron HCl 4 mg tablet 4 mg PO Q6H PRN (Reason: nausea and vomiting) Qty: 14 0RF naproxen 500 mg tablet 500 mg PO Q12H PRN (Reason: pain) Qty: 20 0RF tamsulosin [Flomax] 0.4 mg capsule 0.4 mg PO DAILY Qty: 30 0RF No Action magnesium oxide 400 mg (241.3 mg magnesium) tablet 400 mg PO BID cholecalciferol (vitamin D3) 125 mcg (5,000 unit) capsule 125 mcg PO DAILY Zyrtec 10 mg capsule 10 mg PO DAILY flecainide 100 mg tablet 100 mg PO .COMPLEX Qty: 60 5RF Rx Instructions: 100 mg orally; 07/02/23 take 100mg every morning and 50mg every evening meloxicam 15 mg tablet See Rx Instructions .ROUTE .COMPLEX Qty: 90 3RF Hold Instructions: Resume on 04/22/20. Dose Instruction: TAKE 1 TABLET BY MOUTH DAILY Rx Instructions: TAKE 1 TABLET BY MOUTH DAILY montelukast 10 mg tablet See Rx Instructions .ROUTE .COMPLEX Qty: 90 2RF Dose Instruction: TAKE 1 TABLET BY MOUTH DAILY Rx Instructions: TAKE 1 TABLET BY MOUTH DAILY tizanidine 4 mg tablet See Rx Instructions .ROUTE .COMPLEX Qty: 60 3RF Dose Instruction: TAKE 1 TABLET BY MOUTH TWICE DAILY NEEDED FOR MUSCLE PAIN Rx Instructions: TAKE 1 TABLET BY MOUTH TWICE DAILY NEEDED FOR MUSCLE PAIN triamcinolone acetonide 0.1 % cream 1 applic TOPICAL BID PRN (Reason: Skin Irritation) Qty: 80 2RF potassium chloride 8 mEq capsule, extended release See Rx Instructions .ROUTE .COMPLEX Qty: 90 3RF Dose Instruction: TAKE 1 CAPSULE BY MOUTH DAILY NEEDED WITH LASIX Rx Instructions: TAKE 1 CAPSULE BY MOUTH DAILY NEEDED WITH LASIX losartan 50 mg tablet 50 mg PO DAILY Qty: 30 1RF glimepiride 2 mg tablet See Rx Instructions .ROUTE .COMPLEX Qty: 90 3RF Dose Instruction: TAKE 1 TABLET BY MOUTH DAILY Rx Instructions: TAKE 1 TABLET BY MOUTH DAILY gabapentin 300 mg capsule See Rx Instructions .ROUTE .COMPLEX Qty: 270 3RF Dose Instruction: TAKE 1 CAPSULE BY MOUTH THREE TIMES DAILY Rx Instructions: TAKE 1 CAPSULE BY MOUTH THREE TIMES DAILY furosemide [Lasix] 20 mg tablet 20 mg PO DAILY PRN (Reason: edema) 30 Days Qty: 90 3RF fenofibrate 160 mg tablet See Rx Instructions .ROUTE .COMPLEX Qty: 90 2RF Dose Instruction: TAKE ONE TABLET BY MOUTH DAILY Rx Instructions: TAKE ONE TABLET BY MOUTH DAILY amlodipine 10 mg tablet See Rx Instructions .ROUTE .COMPLEX Qty: 90 2RF Dose Instruction: TAKE 1 TABLET BY MOUTH DAILY Rx Instructions: TAKE 1 TABLET BY MOUTH DAILY metformin 500 mg tablet See Rx Instructions .ROUTE .COMPLEX Qty: 360 3RF Dose Instruction: TAKE 2 TABLETS BY MOUTH TWICE DAILY Rx Instructions: TAKE 2 TABLETS BY MOUTH TWICE DAILY metoprolol succinate 100 mg tablet extended release 24 hr 100 mg PO DAILY Qty: 90 3RF primidone 250 mg tablet 250 mg PO BID Qty: 60 3RF atorvastatin 80 mg tablet 80 mg PO DAILY 30 Days Qty: 30 2RF Discharge Orders: Discharge ED (Routine); Ordered 09/07/23 Ordered By: Jeevan Oglesby Referrals: Adalgisa Shane MD [Primary Care Provider] - Discharge Diet: Usual diet Discharge Activity: Resume usual activity Patient Instructions: Abdominal Pain (ED), Opioid Safety, Pain Management Activity Restrictions/Additional Instructions: Activity Restrictions/Additional Instructions: Thank you for choosing [facility] for your healthcare needs today. Please realize that you were seen in the Emergency Department and that we are providing you with an emergency medical screening exam and this may not be a complete and all inclusive of all the testing and or medical work-up that you may need to determine your ailment or severity of your illness. It is very important that you follow-up as instructed with your Primary care provider or Specialist for additional evaluation and to discuss your medical treatment plan. You may return to the Emergency Department should you have concerns or if your condition changes or worsens in any way. Call to make a Follow-up appointment: [facility] [address] [place] [id number] Phone--[phone] Coding Level of Care Code ED Clinical Product Specialist for Griselda Ozuna
[2023-09-06 23:44] VITALS: PULSE 69; O2SAT 92
[2023-09-06 23:53] VITALS: RESP 18; O2SAT 98
[2023-09-06] MEDS: morphine 4 mg/mL SDV 1 mL IVP (23:53)
[2023-09-06] MEDS: ondansetron 2 mg/ML SDV 2 mL 4 MG IVP (23:53)
[2023-09-07] LABS: Alanine Aminotransferase 14 U/L (0-41); Albumin Level 4.3 g/dL (3.5-5.2); Alkaline Phosphatase 72 U/L (40-130); Anion Gap 14.2 (5-19); Aspartate Amino Transferase 15 U/L (0-40); Blood Urea Nitrogen 21 mg/dL (8-23); Calcium 9.1 mg/dL (8.5-10.5); Carbon Dioxide 27 mmol/L (22-29); Chloride 104 mmol/L (98-107); Creatinine Clr Calc Pharmacy 61.7675; Globulin 2.1 g/dL (1.3-4.6); Glomerular Filtration Rate 59.9 mL/min (90-130); Glucose 168 mg/dL (65-115); Lipase 30 U/L (13-60); Osmolality Calculated 299 mOsm/kg (285-295); Potassium 4.2 mmol/L (3.5-5.1); Sodium 141 mmol/L (136-145); Total Bilirubin 0.2 mg/dL (0.15-1.2); Total Protein 6.4 g/dL (6.6-8.7)
[2023-09-07 00:02] LABS: Add Urine Microscopic? NO; Charge for UA Resulting for Rev
[2023-09-07 00:04] LABS: Bilirubin Urine Neg (Negative); Blood Urine Neg (Negative); Glucose Urine UA 2+ (Normal); Ketones Urine Negative (Negative); Leukocyte Esterase Urine Negative (Negative); Nitrate Urine Negative (Negative); Protein Urine Neg (Negative); Specific Gravity, Urine 1.015 (1.005-1.030); Urine Appearance Clear (CLEAR); Urine Color Yellow (Yellow); Urobilinogen Urine Neg (Negative); pH Urine 6 (5-7)
[2023-09-07 00:39] VITALS: BP 121/68; PULSE 65; RESP 16; O2SAT 94
[2023-09-07 01:00] VITALS: BP 121/68; O2SAT 96
[2023-09-07] MEDS: ketorolac 30 mg/mL INJ IVP (01:52)
[2023-09-07] MEDS: tamsulosin 0.4 mg Capsule 0.400000000000000022 MG PO (02:24)
[2023-09-07] MEDS: HYDROcodone-acetaminophen 10-325 mg Tablet 1 TAB PO (02:51)
[2023-09-07 02:53] VITALS: BP 125/73; PULSE 61; RESP 16; O2SAT 97
== END 2023-09-07 03:11 | disposition home or self-care (01) ==
PROVIDERS: Physician Assistant; Emergency Provider Internal Medicine; PCP Family Medicine
DX: N13.2 Hydronephrosis with renal and ureteral calculous obstruction (principal); Q63.1 Lobulated, fused and horseshoe kidney; Z79.84 Long term (current) use of oral hypoglycemic drugs; E11.9 Type 2 diabetes mellitus without complications; Z85.46 Personal history of malignant neoplasm of prostate; E78.2 Mixed hyperlipidemia; I10 Essential (primary) hypertension; Z87.891 Personal history of nicotine dependence
CPT/HCPCS: 74176; 80053; 81003; 83690; 85025; 96374; 96375; 99285; J1885; J2270; J2405

== ENCOUNTER 2023-09-10 08:41 | Outpatient (CLI) | payer MEDICARE, SELFPAY ==
--- NOTE | 2023-09-10 08:47 | US_ITS ---
WS: [id number] RENAL ULTRASOUND HISTORY: KIDNEY STONE COMPARISON: CT 09/06/2023 TECHNIQUE: 2-D and color Doppler imaging of the kidney submitted. Horseshoe shaped kidneys. Right kidney: 11.7 cm x 4.5 cm x 5.3 cm. Cortex: 1.6 cm Normal echogenicity with no hydronephrosis or mass. Left kidney: 13.5 cm x 4.3 cm x 4.9 cm. Cortex: 1.4 cm There is very mild dilatation of the LEFT renal pelvis which corresponds to the findings on the recen t CT. Aorta: Normal. Urinary Bladder: Urinary bladder is not distended. No ureteral jets are identified. IMPRESSION: 1. Very minimal dilatation of the LEFT renal pelvis consistent with hydronephrosis. Similar to the C T from 09/06/2023. 2. Horseshoe kidneys.
== END 2023-09-10 08:42 | disposition home or self-care (01) ==
LOC: RAD 08:42
PROVIDERS: PCP Family Medicine; Visit Provider Urology
DX: N20.0 Calculus of kidney (principal); Q63.1 Lobulated, fused and horseshoe kidney
CPT/HCPCS: 76770

== ENCOUNTER 2023-09-24 07:18 | Outpatient (CLI) | payer MEDICARE, SELFPAY ==
--- NOTE | 2023-09-24 07:22 | XR_ITS ---
WS: [id number] KUB, AP view, 09/24/2023 Clinical Data: L URETERAL STONE/L URETERAL STRICTURE Comparison: KUB, 2r Findings: There is a round 0.8 cm calcification overlying the left kidney. The calcifications overlap by the le ft 12th rib. There are vascular calcifications in the left upper quadrant. There is a right hip arthr oplasty. No abnormal intraabdominal masses are seen. There is no dilatated small bowel or evidence of obstruct ion. Impression: Probable left renal calculus.
--- NOTE | 2023-09-24 07:22 | US_ITS ---
WS: [id number] RENAL ULTRASOUND HISTORY: L URETERAL STONE/L URETERAL STRICTURE COMPARISON: 09/10/2023, CT 09/06/2023 TECHNIQUE: 2-D and color Doppler imaging of the kidney submitted. 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 Right kidney: 14.0 cm x 4.6 cm x 4.3 cm. Cortex: 1.0 cm Normal echogenicity with no hydronephrosis or mass. Left kidney: 12.4 cm x 4.2 cm x 3.5 cm. Cortex: 0.9 cm Previously described minimal dilatation of the LEFT renal pelvis has resolved. There is no calyceal d ilatation either. Cortex is measuring thin but on the recent CT the cortex appeared normal. Measureme nt of the cortex is probably thin because of the rotation of the kidney. Aorta: Normal. Urinary Bladder: Minimally distended bladder. IMPRESSION: 1. No residual dilatation of the LEFT renal pelvis. No hydronephrosis. 2. Horseshoe kidneys.
== END 2023-09-24 07:19 | disposition home or self-care (01) ==
LOC: RAD 07:18
PROVIDERS: PCP Family Medicine; Visit Provider Urology
DX: N20.1 Calculus of ureter (principal); N13.5 Crossing vessel and stricture of ureter without hydronephrosis; Q63.1 Lobulated, fused and horseshoe kidney
CPT/HCPCS: 74018; 76770

== ENCOUNTER 2023-11-04 10:01 | Outpatient (CLI) | payer MEDICARE, OTHER, SELFPAY ==
[2023-11-04 10:48] LABS: Prostate Specific Antigen < 0.014 ng/mL (0-4)
== END 2023-11-04 10:02 | disposition home or self-care (01) ==
LOC: LAB 10:02
PROVIDERS: PCP Family Medicine; Visit Provider Nurse Practitioner Family
DX: Z85.46 Personal history of malignant neoplasm of prostate (principal)
CPT/HCPCS: 36415; 84153

== ENCOUNTER → 2023-12-02 13:26 | Outpatient (BNVA) | payer MEDICARE, OTHER, SELFPAY | PROVIDERS: PCP Family Medicine; Visit Provider Family Medicine | DX: H61.21 Impacted cerumen, right ear (principal); I10 Essential (primary) hypertension; E78.2 Mixed hyperlipidemia; M51.36 Other intervertebral disc degeneration, lumbar region; G89.29 Other chronic pain; E11.65 Type 2 diabetes mellitus with hyperglycemia; J30.89 Other allergic rhinitis; E55.9 Vitamin D deficiency, unspecified; Z79.899 Other long term (current) drug therapy; G25.0 Essential tremor | CPT/HCPCS: 80053; 80061; 82306; 83036; 84443; 85025 ==

== ENCOUNTER 2024-02-27 18:04 | Emergency (ER) | payer MEDICARE, OTHER, SELFPAY ==
[2024-02-27 18:21] VITALS: BP 172/78; PULSE 99; RESP 15; TEMP 36.7; O2SAT 95; BMI 29.2
--- NOTE | 2024-02-27 20:27 | CTR_ITS ---
PROCEDURE INFORMATION: Exam: CT Abdomen And Pelvis Without Contrast Exam date and time: 02/27/2024 8:39 PM Age: 73 years old Clinical indication: Abdominal pain; Prior surgery; Surgery date: 6+ months; Surgery type: Prostate. Appy. Smith. Patient HX: C/O left flank pain with dysuria. History of prostate cancer and horseshoe kidney. ; Additional info: Urinary difficulty, HX of renal calculi TECHNIQUE: Imaging protocol: Computed tomography of the abdomen and pelvis without contrast. Radiation optimization: All CT scans at this facility use at least one of these dose optimization techniques: automated exposure control; mA and/or kV adjustment per patient size (includes targeted exams where dose is matched to clinical indication); or iterative reconstruction. COMPARISON: CT kidney stone [id number] 09/06/2023 11:44 PM RADIATION DOSE METRICS: Total DLP (mGy-cm): 791.57 FINDINGS: Liver: Diffuse hepatic steatosis. No masses. Gallbladder and biliary ducts: Normal. No calcified stones. No ductal dilation. Pancreas: Normal. No ductal dilation. Spleen: Normal. No splenomegaly. Adrenal glands: Normal. No mass. Kidneys and ureters: Redemonstrated horseshoe kidney, similar in appearance. No nephrolithiasis. Previously seen calculus in the distal left ureter is no longer visualized. Mild bilateral perinephric fat stranding is nonspecific. No hydronephrosis. Stomach and bowel: Colonic diverticulosis without acute diverticulitis. Appendix: No evidence of appendicitis. Intraperitoneal space: Unremarkable. No free air. No significant fluid collection. Vasculature: Mild atherosclerotic calcifications. No aortic aneurysm. Lymph nodes: Unremarkable. No enlarged lymph nodes. Urinary bladder: Unremarkable as visualized. Reproductive: Status post prostatectomy. Bones/joints: Total right hip arthroplasty appears intact within the field of view. Degenerative changes of the visualized spine. No acute fracture. Soft tissues: Moderately large fat containing left inguinal hernia. Small right fat containing inguinal hernia. CT/CT kidney stone [id number] IMPRESSION: 1. No nephrolithiasis or obstructive uropathy. Interval resolution of the previously seen calculus in the distal left ureter. 2. 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 Correlate with urinalysis for urinary tract infection.
--- NOTE | 2024-02-27 20:28 | W.ED.MALEGU ---
Documented by User: JARROD Henderson 02/27/24 22:22 HPI - Male Genitourinary General: Chief complaint: Urogenital-Male Stated complaint: Cant Pee\Dizzy Time Seen by Provider: 02/27/24 20:26 History of Present Illness: 73-year-old male patient comes in today with some complaints of dysuria and feeling of malaise. Patient appears nontoxic. Patient appears mildly unwell. Patient at first thought he had symptoms secondary to receiving a COVID-vaccine last week. Patient has a history of renal calculi and urinary retention. Along with chronic medical problems for blood pressure, neuropathy, hypertriglyceridemia, high cholesterol, type 2 diabetes, and the tremor. Related Data Home Medications Medication Instructions Recorded Confirmed cetirizine 10 mg capsule (Zyrtec) 10 mg PO DAILY 06/16/19 12/02/23 cholecalciferol (vitamin D3) 125 125 mcg PO DAILY 03/04/21 12/02/23 mcg (5,000 unit) capsule magnesium oxide 400 mg (241.3 mg 400 mg PO BID 03/04/21 12/02/23 magnesium) tablet Previous Rx's Medication Instructions Recorded potassium chloride 8 mEq See Rx Instructions .Route 03/09/23 capsule,extended release .COMPLEX #90 caps triamcinolone acetonide 0.1 % 1 applic topical BID PRN Skin 05/21/23 topical cream Irritation #80 grams furosemide 20 mg tablet (Lasix) 20 mg PO DAILY PRN edema 30 days 08/20/23 #90 tabs ondansetron HCl 4 mg tablet 4 mg PO Q6H PRN nausea and 09/07/23 vomiting #14 tabs amlodipine 10 mg tablet See Rx Instructions .Route 12/02/23 .COMPLEX #90 tabs fenofibrate 160 mg tablet See Rx Instructions .Route 12/02/23 .COMPLEX #90 tabs gabapentin 300 mg capsule See Rx Instructions .Route 12/02/23 .COMPLEX #270 caps glimepiride 2 mg tablet See Rx Instructions .Route 12/02/23 .COMPLEX #90 tabs meloxicam 15 mg tablet See Rx Instructions .Route 12/02/23 .COMPLEX #90 tabs metformin 500 mg tablet See Rx Instructions .Route 12/02/23 .COMPLEX #360 tabs metoprolol succinate 100 mg 100 mg PO DAILY #90 tabs 12/02/23 tablet,extended release 24 hr montelukast 10 mg tablet See Rx Instructions .Route 12/02/23 .COMPLEX #90 tabs tizanidine 4 mg tablet See Rx Instructions .Route 12/02/23 .COMPLEX #60 tabs flecainide 100 mg tablet 100 mg PO .COMPLEX #60 tabs 12/03/23 atorvastatin 80 mg tablet See Rx Instructions .Route 12/10/23 .COMPLEX #90 tabs losartan 100 mg tablet See Rx Instructions .Route 12/10/23 .COMPLEX #90 tabs primidone 250 mg tablet See Rx Instructions .Route 12/10/23 .COMPLEX #180 tabs cephalexin 500 mg capsule 500 mg PO BID 10 days #20 caps 02/27/24 Allergies Allergy/AdvReac Type Severity Reaction Status Date / Time tramadol Allergy itching Verified 02/27/24 18:27 Review of Systems General: Reports: 10 or more systems reviewed and unremarkable except in HPI and below : Reports: difficulty urinating PFSH ED PFSH: Medical History Male stress incontinence Radiation cystitis Urolithiasis Gross hematuria Erectile dysfunction MARCELINO (obstructive sleep apnea) Type 2 diabetes mellitus Fatigue Post-procedural erectile dysfunction Prostate cancer Ventricular arrhythmia Mixed hyperlipidemia Medication refill Environmental and seasonal allergies Skin graft (allograft) (autograft) failure Tonsillectomy planned Abnormal prostate biopsy Opioid contract exists Encounter for long-term use of opiate analgesic Multilevel degenerative disc disease Back Pain Cervical spine pain Chronic low back pain Degeneration of lumbar intervertebral disc Essential hypertension Type 2 diabetes mellitus Palpitation (~06/2019) Atypical chest pain Surgical History Hx of colonoscopy (~01/2018) History of hip replacement right History of appendectomy S/P ureteral stent placement History of prostatectomy H/O adenoidectomy H/O lateral meniscus repair of left knee Family History Father , at age 88 Myocardial infarction (lateral wall) Mother , at age 53 Prostate cancer Aneurysm Other CAD (coronary artery disease) Diabetes Social History Smoking and tobacco/nicotine status: former use of tobacco/nicotine Quit status (tobacco/nicotine): has quit using Year quit tobacco: 1971 6yr hx Second hand smoke exposure: No Alcohol intake: never Substance/Drug Use: never Caregiver/support person: No Lives independently: Yes Household members: spouse Marital status: service: No Current occupational status: employed 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 Pets and animals: Yes Do you think of yourself as: Straight/Heterosexual Current gender identity: Male Physical Exam Const: COMMON NORMALS: alert HENMT: COMMON NORMALS: normocephalic HEAD & SCALP: normocephalic Neck/C-Spine: COMMON NORMALS: full ROM Resp: COMMON NORMALS: normal respiratory effort Cardio: COMMON NORMALS: regular rate RATE: regular rate Back/Pelvis: COMMON NORMALS: thoracic and lumbar spine normal to inspection Extremity: COMMON NORMALS: full ROM and no pedal edema Neuro: SENSORIUM/ORIENTATION: Yes alert Skin: COMMON NORMALS: turgor normal GENERAL SKIN EXAM: turgor normal Course Vital Signs: Vital signs: Vital Signs Temperature 98.0 F 02/27/24 18:21 Pulse Rate 82 02/27/24 22:34 Respiratory Rate 18 02/27/24 22:34 Blood Pressure 134/84 02/27/24 22:34 Pulse Oximetry 92 02/27/24 22:34 Oxygen Delivery Me thod Room Air 02/27/24 21:48 MDM - Male Medical Decision Making 73-year-old male patient comes in today for complaints of urinary difficulty and feeling of malaise. Patient appears nontoxic. Patient was all extremities well. Respirations are even lungs are clear to auscultation. Vital signs are normal except for elevated blood pressure. Differential diagnosis includes not limited to urinary tract infection, renal calculi, malingering, constipation. CBC and CMP were unremarkable. Urinalysis had some increased white blood cells. CT of the abdomen pelvis noted some stranding around the kidneys but otherwise unremarkable. Believe patient might have some mild urinary tract infection. Patient was given 1 g Rocephin in the ER and continued on cephalexin for the next 10 days. Patient reported understanding of care plan need for follow-up or return to the ER. Lab Data 02/27/24 20:34 02/27/24 20:34 Radiology Impressions Abdomen/Pelvis CT 02/27/24 20:27 IMPRESSION: 1. No nephrolithiasis or obstructive uropathy. Interval resolution of the previously seen calculus in the distal left ureter. 2. 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 Correlate with urinalysis for urinary tract infection. Laboratory Results WBC 6.00 10^3/uL (3.29-11.43) 02/27/24 20:34 RBC 4.70 10^6/uL (3.85-5.65) 02/27/24 20:34 Hgb 14.80 g/dL (11.27-16.99) 02/27/24 20:34 Hct 43.3 % (37-53) 02/27/24 20:34 MCV 92.1 fl (82-101) 02/27/24: MCH 31.5 pg (27-33) 02/27/24: MCHC 34.2 g/dL (30-55) 02/27/24:34 RDW 11.8 % (12.1-15.1) L 02/27/24:34 Plt Count 263 10^3/cmm (157-399) 02/27/24:34 MPV 9.1 fL (7.4-10.4) 02/27/24 20:34 Neut % (Auto) 72.3 % 02/27/24 20:34 Lymph % (Auto) 14.7 % 02/27/24 20:34 Union % (Auto) 10.7 % 02/27/24 20:34 Eos % (Auto) 1.7 % 02/27/24 20:34 Baso % (Auto) 0.3 % 02/27/24:34 Neut # (Auto) 4.34 10^3/uL (1.8-7.7) 02/27/24 20:34 Lymph # (Auto) 0.9 10^3/uL (0.8-4.8) 02/27/24:34 Union # (Auto) 0.6 10^3/uL (0.2-0.9) 02/27/24 20:34 Eos # (Auto) 0.1 10^3/uL (0.0-0.8) 02/27/24 20:34 Baso # (Auto) 0.0 10^3/uL (0.0-0.1) 02/27/24 20:34 Nucleated RBC % (auto) 0 % 02/27/24 20:34 Nucleated RBCs # 0.0 /100WBC 02/27/24 20:34 Sodium 139 mmol/L (136-145) 02/27/24 20:34 Potassium 4.0 mmol/L (3.5-5.1) 02/27/24 20:34 Chloride 103 mmol/L (98-107) 02/27/24 20:34 Carbon Dioxide 28 mmol/L (22-29) 02/27/24 20:34 Anion Gap 12.0 (5-19) 02/27/24 20:34 BUN 20 mg/dL (8-23) 02/27/24 20:34 Creatinine 0.9 mg/dL (0.7-1.2) 02/27/24 20:34 GFR Calculation Not Reportable 02/27/24 20:34 Glucose 167 mg/dL (65-115) H 02/27/24 20:34 Calculated Osmolality 294 mOsm/kg (285-295) 02/27/24 20:34 Calcium 9.2 mg/dL (8.5-10.5) 02/27/24 20:34 Total Bilirubin 0.3 mg/dL (0.15-1.2) 02/27/24 20:34 AST 16 U/L (0-40) 02/27/24 20:34 ALT 16 U/L (0-41) 02/27/24 20:34 Alkaline Phosphatase 54 U/L (40-130) 02/27/24 20:34 Total Protein 6.6 g/dL (6.6-8.7) 02/27/24 20:34 Albumin 4.2 g/dL (3.5-5.2) 02/27/24 20:34 Globulin 2.4 g/dL (1.3-4.6) 02/27/24 20:34 Lipase 26 U/L (13-60) 02/27/24 20:34 Urine Color Yellow (Yellow) 02/27/24 21:06 Urine Appearance Slightly cloudy (CLEAR) 02/27/24 21:06 Urine pH 8 (5-7) A 02/27/24 21:06 Ur Specific Graham 1.020 (1.005-1.030) 02/27/24 21:06 Urine Protein Trace (Negative) 02/27/24 21:06 Urine Glucose (UA) 2+ (Normal) H 02/27/24 21:06 Urine Ketones Negative (Negative) 02/27/24 21:06 Urine Blood Neg (Negative) 02/27/24 21:06 Urine Nitrate Negative (Negative) 02/27/24 21:06 Urine Bilirubin Neg (Negative) 02/27/24 21:06 Urine Urobilinogen Norm mg/dL (Negative) 02/27/24 21:06 Ur Leukocyte Esterase Trace (Negative) H 02/27/24 21:06 Urine RBC 0-4 /hpf (0-2) H 02/27/24 21:06 Urine WBC 25-40 /hpf (0-5) H 02/27/24 21:06 Ur Squamous Epith Cells 0-4 /hpf (0-5) H 02/27/24 21:06 Amorphous Sediment Not Reportable 02/27/24 21:06 Urine Bacteria 1+ /hpf (NONE) H 02/27/24 21:06 All radiology interpretation(s) finalized by discharge Discharge Plan Discharge Patient Disposition: Home Clinical Impression: Acute UTI (urinary tract infection) Condition: Stable Prescriptions: New cephalexin 500 mg capsule 500 mg PO BID 10 Days Qty: 20 0RF No Action magnesium oxide 400 mg (241.3 mg magnesium) tablet 400 mg PO BID cholecalciferol (vitamin D3) 125 mcg (5,000 unit) capsule 125 mcg PO DAILY Zyrtec 10 mg capsule 10 mg PO DAILY triamcinolone acetonide 0.1 % cream 1 applic TOPICAL BID PRN (Reason: Skin Irritation) Qty: 80 2RF potassium chloride 8 mEq capsule, extended release See Rx Instructions .ROUTE .COMPLEX Qty: 90 3RF Dose Instruction: TAKE 1 CAPSULE BY MOUTH DAILY NEEDED WITH LASIX Rx Instructions: TAKE 1 CAPSULE BY MOUTH DAILY NEEDED WITH LASIX furosemide [Lasix] 20 mg tablet 20 mg PO DAILY PRN (Reason: edema) 30 Days Qty: 90 3RF amlodipine 10 mg tablet See Rx Instructions .ROUTE .COMPLEX Qty: 90 2RF Dose Instruction: TAKE 1 TABLET BY MOUTH DAILY Rx Instructions: TAKE 1 TABLET BY MOUTH DAILY fenofibrate 160 mg tablet See Rx Instructions .ROUTE .COMPLEX Qty: 90 2RF Dose Instruction: TAKE ONE TABLET BY MOUTH DAILY Rx Instructions: TAKE ONE TABLET BY MOUTH DAILY gabapentin 300 mg capsule See Rx Instructions .ROUTE .COMPLEX Qty: 270 3RF Dose Instruction: TAKE 1 CAPSULE BY MOUTH THREE TIMES DAILY Rx Instructions: TAKE 1 CAPSULE BY MOUTH THREE TIMES DAILY glimepiride 2 mg tablet See Rx Instructions .ROUTE .COMPLEX Qty: 90 3RF Dose Instruction: TAKE 1 TABLET BY MOUTH DAILY Rx Instructions: TAKE 1 TABLET BY MOUTH DAILY meloxicam 15 mg tablet See Rx Instructions .ROUTE .COMPLEX Qty: 90 3RF Hold Instructions: Resume on 04/22/20. Dose Instruction: TAKE 1 TABLET BY MOUTH DAILY Rx Instructions: TAKE 1 TABLET BY MOUTH DAILY metformin 500 mg tablet See Rx Instructions .ROUTE .COMPLEX Qty: 360 3RF Dose Instruction: TAKE 2 TABLETS BY MOUTH TWICE DAILY Rx Instructions: TAKE 2 TABLETS BY MOUTH TWICE DAILY metoprolol succinate 100 mg tablet extended release 24 hr 100 mg PO DAILY Qty: 90 3RF montelukast 10 mg tablet See Rx Instructions .ROUTE .COMPLEX Qty: 90 2RF Dose Instruction: TAKE 1 TABLET BY MOUTH DAILY Rx Instructions: TAKE 1 TABLET BY MOUTH DAILY tizanidine 4 mg tablet See Rx Instructions .ROUTE .COMPLEX Qty: 60 3RF Dose Instruction: TAKE 1 TABLET BY MOUTH TWICE DAILY NEEDED FOR MUSCLE PAIN Rx Instructions: TAKE 1 TABLET BY MOUTH TWICE DAILY NEEDED FOR MUSCLE PAIN flecainide 100 mg tablet 100 mg PO .COMPLEX Qty: 60 5RF Rx Instructions: 100 mg orally; 07/02/23 take 100mg every morning and 50mg every evening atorvastatin 80 mg tablet See Rx Instructions .ROUTE .COMPLEX Qty: 90 1RF Dose Instruction: TAKE 1 TABLET BY MOUTH DAILY Rx Instructions: TAKE 1 TABLET BY MOUTH DAILY losartan 100 mg tablet See Rx Instructions .ROUTE .COMPLEX Qty: 90 1RF Dose Instruction: TAKE 1 TABLET BY MOUTH DAILY Rx Instructions: TAKE 1 TABLET BY MOUTH DAILY primidone 250 mg tablet See Rx Instructions .ROUTE .COMPLEX Qty: 180 1RF Dose Instruction: TAKE 1 TABLET BY MOUTH TWICE DAILY Rx Instructions: TAKE 1 TABLET BY MOUTH TWICE DAILY ondansetron HCl 4 mg tablet 4 mg PO Q6H PRN (Reason: nausea and vomiting) Qty: 14 0RF Discharge Orders: Discharge ED (Routine); Ordered 02/27/24 Ordered By: Jluis Aguilar Referrals: Adalgisa Shane MD [Primary Care Provider] - Discharge Diet: Usual diet Discharge Activity: Increase activity as tolerated Patient Instructions: Urinary Tract Infection in Men (ED) Activity Restrictions/Additional Instructions: Take antibiotic as directed. Drink plenty of water and fluids. Follow-up with primary care in 3 to 5 days for recheck. Return to ED for worsening symptoms such as nausea, vomiting, inability to hold fluids down, or new concerns. Coding Level of Care Code ED Director Of [employer] for [facility] Fwd Documented by User: Alejo Bell DO 02/28/24 01:09 HPI - Male Genitourinary General: Chief complaint: Urogenital-Male Stated complaint: Cant Pee\Dizzy Time Seen by Provider: 02/27/24 20:26 Related Data Home Medications Medication Instructions Recorded Confirmed cetirizine 10 mg capsule (Zyrtec) 10 mg PO DAILY 06/16/19 12/02/23 cholecalciferol (vitamin D3) 125 125 mcg PO DAILY 03/04/21 12/02/23 mcg (5,000 unit) capsule magnesium oxide 400 mg (241.3 mg 400 mg PO BID 03/04/21 12/02/23 magnesium) tablet Previous Rx's Medication Instructions Recorded potassium chloride 8 mEq See Rx Instructions .Route 03/09/23 capsule,extended release .COMPLEX #90 caps triamcinolone acetonide 0.1 % 1 applic topical BID PRN Skin 05/21/23 topical cream Irritation #80 grams furosemide 20 mg tablet (Lasix) 20 mg PO DAILY PRN edema 30 days 08/20/23 #90 tabs ondansetron HCl 4 mg tablet 4 mg PO Q6H PRN nausea and 09/07/23 vomiting #14 tabs amlodipine 10 mg tablet See Rx Instructions .Route 12/02/23 .COMPLEX #90 tabs fenofibrate 160 mg tablet See Rx Instructions .Route 12/02/23 .COMPLEX #90 tabs gabapentin 300 mg capsule See Rx Instructions .Route 12/02/23 .COMPLEX #270 caps glimepiride 2 mg tablet See Rx Instructions .Route 12/02/23 .COMPLEX #90 tabs meloxicam 15 mg tablet See Rx Instructions .Route 12/02/23 .COMPLEX #90 tabs metformin 500 mg tablet See Rx Instructions .Route 12/02/23 .COMPLEX #360 tabs metoprolol succinate 100 mg 100 mg PO DAILY #90 tabs 12/02/23 tablet,extended release 24 hr montelukast 10 mg tablet See Rx Instructions .Route 12/02/23 .COMPLEX #90 tabs tizanidine 4 mg tablet See Rx Instructions .Route 12/02/23 .COMPLEX #60 tabs flecainide 100 mg tablet 100 mg PO .COMPLEX #60 tabs 12/03/23 atorvastatin 80 mg tablet See Rx Instructions .Route 12/10/23 .COMPLEX #90 tabs losartan 100 mg tablet See Rx Instructions .Route 12/10/23 .COMPLEX #90 tabs primidone 250 mg tablet See Rx Instructions .Route 12/10/23 .COMPLEX #180 tabs cephalexin 500 mg capsule 500 mg PO BID 10 days #20 caps 02/27/24 Allergies Allergy/AdvReac Type Severity Reaction Status Date / Time tramadol Allergy itching Verified 02/27/24 18:27 PFS ED PFSH: Medical History Male stress incontinence Radiation cystitis Urolithiasis Gross hematuria Erectile dysfunction MARCELINO (obstructive sleep apnea) Type 2 diabetes mellitus Fatigue Post-procedural erectile dysfunction Prostate cancer Ventricular arrhythmia Mixed hyperlipidemia Medication refill Environmental and seasonal allergies Skin graft (allograft) (autograft) failure Tonsillectomy planned Abnormal prostate biopsy Opioid contract exists Encounter for long-term use of opiate analgesic Multilevel degenerative disc disease Back Pain Cervical spine pain Chronic low back pain Degeneration of lumbar intervertebral disc Essential hypertension Type 2 diabetes mellitus Palpitation (~06/2019) Atypical chest pain Surgical History Hx of colonoscopy (~01/2018) History of hip replacement right History of appendectomy S/P ureteral stent placement History of prostatectomy H/O adenoidectomy H/O lateral meniscus repair of left knee Family History Father , at age 88 Myocardial infarction (lateral wall) Mother , at age 53 Prostate cancer Aneurysm Other CAD (coronary artery disease) Diabetes Social History Smoking and tobacco/nicotine status: former use of tobacco/nicotine Quit status (tobacco/nicotine): has quit using Year quit tobacco: 1971 8yr hx Second hand smoke exposure: No Alcohol intake: never Substance/Drug Use: never Caregiver/support person: No Lives independently: Yes Household members: spouse Marital status: service: No Current occupational status: employed 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 Patient appears nontoxic. Patient was all extremities well. Respirations are even lungs are clear to auscultation. Vital signs are normal except for elevated blood pressure. Differential diagnosis includes not limited to urinary tract infection, renal calculi, malingering, constipation. CBC and CMP were unremarkable. Urinalysis had some increased white blood cells. CT of the abdomen pelvis noted some stranding around the kidneys but otherwise unremarkable. Believe patient might have some mild urinary tract infection. Patient was given 1 g Rocephin in the ER and continued on cephalexin for the next 10 days. Patient reported understanding of care plan need for follow-up or return to the ER. This patient was originally seen by JARROD Elmore.? I agree with his history, evaluation, and treatment. Lab Data 02/27/24 20:34 02/27/24 20:34 Radiology Impressions Abdomen/Pelvis CT 02/27/24 20:27 IMPRESSION: 1. No nephrolithiasis or obstructive uropathy. Interval resolution of the previously seen calculus in the distal left ureter. 2. 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 Correlate with urinalysis for urinary tract infection. Laboratory Results WBC 6.00 10^3/uL (3.29-11.43) 02/27/24 20:34 RBC 4.70 10^6/uL (3.85-5.65) 02/27/24 20:34 Hgb 14.80 g/dL (11.27-16.99) 02/27/24 20:34 Hct 43.3 % (37-53) 02/27/24 20:34 MCV 92.1 fl (82-101) 02/27/24 20:34 MCH 31.5 pg (27-33) 02/27/24 20: MCHC 34.2 g/dL (30-55) 02/27/24 20:34 RDW 11.8 % (12.1-15.1) L 02/27/24:34 Plt Count 263 10^3/cmm (157-399) 02/27/24 20:34 MPV 9.1 fL (7.4-10.4) 02/27/24 20:34 Neut % (Auto) 72.3 % 02/27/24 20:34 Lymph % (Auto) 14.7 % 02/27/24 20:34 Union % (Auto) 10.7 % 02/27/24 20:34 Eos % (Auto) 1.7 % 02/27/24 20:34 Baso % (Auto) 0.3 % 02/27/24:34 Neut # (Auto) 4.34 10^3/uL (1.8-7.7) 02/27/24 20:34 Lymph # (Auto) 0.9 10^3/uL (0.8-4.8) 02/27/24 20:34 Union # (Auto) 0.6 10^3/uL (0.2-0.9) 02/27/24 20:34 Eos # (Auto) 0.1 10^3/uL (0.0-0.8) 02/27/24 20:34 Baso # (Auto) 0.0 10^3/uL (0.0-0.1) 02/27/24 20:34 Nucleated RBC % (auto) 0 % 02/27/24 20: Nucleated RBCs # 0.0 /100WBC 02/27/24 20:34 Sodium 139 mmol/L (136-145) 02/27/24 20:34 Potassium 4.0 mmol/L (3.5-5.1) 02/27/24 20:34 Chloride 103 mmol/L (98-107) 02/27/24 20:34 Carbon Dioxide 28 mmol/L (22-29) 02/27/24 20:34 Anion Gap 12.0 (5-19) 02/27/24 20:34 BUN 20 mg/dL (8-23) 02/27/24 20:34 Creatinine 0.9 mg/dL (0.7-1.2) 02/27/24 20:34 GFR Calculation Not Reportable 02/27/24 20:34 Glucose 167 mg/dL (65-115) H 02/27/24 20:34 Calculated Osmolality 294 mOsm/kg (285-295) 02/27/24 20:34 Calcium 9.2 mg/dL (8.5-10.5) 02/27/24 20:34 Total Bilirubin 0.3 mg/dL (0.15-1.2) 02/27/24 20:34 AST 16 U/L (0-40) 02/27/24 20:34 ALT 16 U/L (0-41) 02/27/24 20:34 Alkaline Phosphatase 54 U/L (40-130) 02/27/24 20:34 Total Protein 6.6 g/dL (6.6-8.7) 02/27/24 20:34 Albumin 4.2 g/dL (3.5-5.2) 02/27/24 20:34 Globulin 2.4 g/dL (1.3-4.6) 02/27/24 20:34 Lipase 26 U/L (13-60) 02/27/24 20:34 Urine Color Yellow (Yellow) 02/27/24 21:06 Urine Appearance Slightly cloudy (CLEAR) 02/27/24 21:06 Urine pH 8 (5-7) A 02/27/24 21: Ur Specific Graham 1.020 (1.005-1.030) 02/27/24 21: Urine Protein Trace (Negative) 02/27/24 21:06 Urine Glucose (UA) 2+ (Normal) H 02/27/24 21:06 Urine Ketones Negative (Negative) 02/27/24 21: Urine Blood Neg (Negative) 02/27/24 21: Urine Nitrate Negative (Negative) 09/15/24 21:06 Urine Bilirubin Neg (Negative) 02/27/24 21:06 Urine Urobilinogen Norm mg/dL (Negative) 02/27/24 21:06 Ur Leukocyte Esterase Trace (Negative) H 02/27/24 21:06 Urine RBC 0-4 /hpf (0-2) H 02/27/24 21:06 Urine WBC 25-40 /hpf (0-5) H 02/27/24 21:06 Ur Squamous Epith Cells 0-4 /hpf (0-5) H 02/27/24 21:06 Amorphous Sediment Not Reportable 02/27/24 21:06 Urine Bacteria 1+ /hpf (NONE) H 02/27/24 21:06 Discharge Plan Discharge Patient Disposition: Home Clinical Impression: Acute UTI (urinary tract infection) Condition: Stable Prescriptions: New cephalexin 500 mg capsule 500 mg PO BID 10 Days Qty: 20 0RF No Action magnesium oxide 400 mg (241.3 mg magnesium) tablet 400 mg PO BID cholecalciferol (vitamin D3) 125 mcg (5,000 unit) capsule 125 mcg PO DAILY Zyrtec 10 mg capsule 10 mg PO DAILY triamcinolone acetonide 0.1 % cream 1 applic TOPICAL BID PRN (Reason: Skin Irritation) Qty: 80 2RF potassium chloride 8 mEq capsule, extended release See Rx Instructions .ROUTE .COMPLEX Qty: 90 3RF Dose Instruction: TAKE 1 CAPSULE BY MOUTH DAILY NEEDED WITH LASIX Rx Instructions: TAKE 1 CAPSULE BY MOUTH DAILY NEEDED WITH LASIX furosemide [Lasix] 20 mg tablet 20 mg PO DAILY PRN (Reason: edema) 30 Days Qty: 90 3RF amlodipine 10 mg tablet See Rx Instructions .ROUTE .COMPLEX Qty: 90 2RF Dose Instruction: TAKE 1 TABLET BY MOUTH DAILY Rx Instructions: TAKE 1 TABLET BY MOUTH DAILY fenofibrate 160 mg tablet See Rx Instructions .ROUTE .COMPLEX Qty: 90 2RF Dose Instruction: TAKE ONE TABLET BY MOUTH DAILY Rx Instructions: TAKE ONE TABLET BY MOUTH DAILY gabapentin 300 mg capsule See Rx Instructions .ROUTE .COMPLEX Qty: 270 3RF Dose Instruction: TAKE 1 CAPSULE BY MOUTH THREE TIMES DAILY Rx Instructions: TAKE 1 CAPSULE BY MOUTH THREE TIMES DAILY glimepiride 2 mg tablet See Rx Instructions .ROUTE .COMPLEX Qty: 90 3RF Dose Instruction: TAKE 1 TABLET BY MOUTH DAILY Rx Instructions: TAKE 1 TABLET BY MOUTH DAILY meloxicam 15 mg tablet See Rx Instructions .ROUTE .COMPLEX Qty: 90 3RF Hold Instructions: Resume on 04/22/20. Dose Instruction: TAKE 1 TABLET BY MOUTH DAILY Rx Instructions: TAKE 1 TABLET BY MOUTH DAILY metformin 500 mg tablet See Rx Instructions .ROUTE .COMPLEX Qty: 360 3RF Dose Instruction: TAKE 2 TABLETS BY MOUTH TWICE DAILY Rx Instructions: TAKE 2 TABLETS BY MOUTH TWICE DAILY metoprolol succinate 100 mg tablet extended release 24 hr 100 mg PO DAILY Qty: 90 3RF montelukast 10 mg tablet See Rx Instructions .ROUTE .COMPLEX Qty: 90 2RF Dose Instruction: TAKE 1 TABLET BY MOUTH DAILY Rx Instructions: TAKE 1 TABLET BY MOUTH DAILY tizanidine 4 mg tablet See Rx Instructions .ROUTE .COMPLEX Qty: 60 3RF Dose Instruction: TAKE 1 TABLET BY MOUTH TWICE DAILY NEEDED FOR MUSCLE PAIN Rx Instructions: TAKE 1 TABLET BY MOUTH TWICE DAILY NEEDED FOR MUSCLE PAIN flecainide 100 mg tablet 100 mg PO .COMPLEX Qty: 60 5RF Rx Instructions: 100 mg orally; 07/02/23 take 100mg every morning and 50mg every evening atorvastatin 80 mg tablet See Rx Instructions .ROUTE .COMPLEX Qty: 90 1RF Dose Instruction: TAKE 1 TABLET BY MOUTH DAILY Rx Instructions: TAKE 1 TABLET BY MOUTH DAILY losartan 100 mg tablet See Rx Instructions .ROUTE .COMPLEX Qty: 90 1RF Dose Instruction: TAKE 1 TABLET BY MOUTH DAILY Rx Instructions: TAKE 1 TABLET BY MOUTH DAILY primidone 250 mg tablet See Rx Instructions .ROUTE .COMPLEX Qty: 180 1RF Dose Instruction: TAKE 1 TABLET BY MOUTH TWICE DAILY Rx Instructions: TAKE 1 TABLET BY MOUTH TWICE DAILY ondansetron HCl 4 mg tablet 4 mg PO Q6H PRN (Reason: nausea and vomiting) Qty: 14 0RF Discharge Orders: Discharge ED (Routine); Ordered 02/27/24 Ordered By: Jluis Aguilar Referrals: Adalgisa Shane MD [Primary Care Provider] - Discharge Diet: Usual diet Discharge Activity: Increase activity as tolerated Patient Instructions: Urinary Tract Infection in Men (ED) Activity Restrictions/Additional Instructions: Take antibiotic as directed. Drink plenty of water and fluids. Follow-up with primary care in 3 to 5 days for recheck. Return to ED for worsening symptoms such as nausea, vomiting, inability to hold fluids down, or new concerns. Coding Level of Care Code ED Director Of Community Education for Griselda Ozuna
[2024-02-27 20:48] LABS: Basophils % 0.3 %; Eosinophils # 0.1 10^3/uL (0.0-0.8); Eosinophils % 1.7 %; Hematocrit 43.3 % (37-53); Lymphocytes # 0.9 10^3/uL (0.8-4.8); Lymphocytes % 14.7 %; Mean Corpuscular HGB Conc 34.2 g/dL (30-55); Mean Corpuscular Hemoglobin 31.5 pg (27-33); Mean Corpuscular Volume 92.1 fl (82-101); Mean Platelet Volume 9.1 fL (7.4-10.4); Monocytes # 0.6 10^3/uL (0.2-0.9); Monocytes % 10.7 %; Neutrophils # 4.34 10^3/uL (1.8-7.7); Neutrophils % 72.3 %; Nucleated Red Blood Cells % 0 %; Platelet Count 263 10^3/cmm (157-399); Red Cell Distribution Width 11.8 % (12.1-15.1)
[2024-02-27 20:53] VITALS: BP 146/88; PULSE 89; O2SAT 93
[2024-02-27 21:06] LABS: Alanine Aminotransferase 16 U/L (0-41); Albumin Level 4.2 g/dL (3.5-5.2); Alkaline Phosphatase 54 U/L (40-130); Aspartate Amino Transferase 16 U/L (0-40); Blood Urea Nitrogen 20 mg/dL (8-23); Calcium 9.2 mg/dL (8.5-10.5); Carbon Dioxide 28 mmol/L (22-29); Chloride 103 mmol/L (98-107); Creatinine Clr Calc Pharmacy 80.7939; Globulin 2.4 g/dL (1.3-4.6); Glucose 167 mg/dL (65-115); Lipase 26 U/L (13-60); Osmolality Calculated 294 mOsm/kg (285-295); Sodium 139 mmol/L (136-145); Total Bilirubin 0.3 mg/dL (0.15-1.2); Total Protein 6.6 g/dL (6.6-8.7)
[2024-02-27 21:15] VITALS: BP 157/84; PULSE 82; RESP 18; O2SAT 95
[2024-02-27 21:31] LABS: Add Urine Microscopic? YES; Bacteria Urine 1+ /hpf; Bilirubin Urine Neg (Negative); Blood Urine Neg (Negative); Glucose Urine UA 2+ (Normal); Ketones Urine Negative (Negative); Leukocyte Esterase Urine Trace (Negative); Nitrate Urine Negative (Negative); Protein Urine Trace (Negative); RBC Urine 0-4 /hpf (0-2); Squamous Epithelial Cell Urine 0-4 /hpf (0-5); UA Manual Slide Review YES; UA Slide Review UA Slide Review Perf; Urine Appearance Slightly Cloudy (CLEAR); Urine Color Yellow (Yellow); Urobilinogen Urine Norm (Negative); WBC Urine 25-40 /hpf (0-5); pH Urine 8 (5-7)
[2024-02-27] MEDS: ketorolac 30 mg/mL INJ 15 MG IVP (21:45)
[2024-02-27] MEDS: cefTRIAXone 1,000 mg SDV 1000 MG IVP (21:47)
[2024-02-27 21:48] VITALS: BP 151/86; PULSE 84; RESP 18; O2SAT 94
[2024-02-27 22:34] VITALS: BP 134/84; PULSE 82; RESP 18; O2SAT 92
== END 2024-02-27 22:35 | disposition home or self-care (01) ==
PROVIDERS: Emergency Provider Nurse Practitioner Family; PCP Family Medicine
DX: N39.0 Urinary tract infection, site not specified (principal); Z79.84 Long term (current) use of oral hypoglycemic drugs
CPT/HCPCS: 74176; 80053; 81001; 83690; 85025; 96374; 96375; 99285; J0696; J1885

== ENCOUNTER → 2024-03-02 14:54 | Outpatient (BNVA) | payer MEDICARE, OTHER, SELFPAY | PROVIDERS: PCP Family Medicine; Visit Provider Family Medicine | DX: N39.0 Urinary tract infection, site not specified (principal) | CPT/HCPCS: 81000 ==

== ENCOUNTER → 2024-07-12 08:56 | Outpatient (BNVA) | payer MEDICARE, OTHER, SELFPAY | PROVIDERS: PCP Nurse Practitioner Family; Visit Provider Nurse Practitioner Family | DX: I49.8 Other specified cardiac arrhythmias (principal); I10 Essential (primary) hypertension; E78.2 Mixed hyperlipidemia; R94.31 Abnormal electrocardiogram [ECG] [EKG]; Z79.899 Other long term (current) drug therapy | CPT/HCPCS: 99213 ==

== ENCOUNTER → 2024-07-24 11:04 | Outpatient (BNVA) | payer MEDICARE, OTHER, SELFPAY | PROVIDERS: PCP Nurse Practitioner Family; Visit Provider Nurse Practitioner Family | DX: E11.65 Type 2 diabetes mellitus with hyperglycemia (principal); R07.89 Other chest pain; Z79.899 Other long term (current) drug therapy; Z91.014 Allergy to mammalian meats; I10 Essential (primary) hypertension; E78.2 Mixed hyperlipidemia; E55.9 Vitamin D deficiency, unspecified; G89.29 Other chronic pain; G25.0 Essential tremor | CPT/HCPCS: 80053; 80061; 82043; 82306; 82607; 83036; 83735; 84443; 85025; 86003; 86008 ==

== ENCOUNTER → 2025-01-01 09:45 | Outpatient (BNVA) | payer MEDICARE, OTHER, SELFPAY | PROVIDERS: PCP Nurse Practitioner Family; Visit Provider Internal Medicine Cardiovascular Disease | DX: R07.9 Chest pain, unspecified (principal); I10 Essential (primary) hypertension; E78.2 Mixed hyperlipidemia; Z79.899 Other long term (current) drug therapy; R60.0 Localized edema; I49.8 Other specified cardiac arrhythmias | CPT/HCPCS: 99214 ==

== ENCOUNTER 2025-01-11 08:15 | Outpatient (CLI) | payer MEDICARE, OTHER, SELFPAY ==
--- NOTE | 2025-01-11 | ECG_ITS ---
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 Interpretive Statements LEXISCAN SESTAMIBI STRESS TEST Procedure: At the baseline, the blood pressure was 130/72 mmHg with a heart rate of 81 bpm. The electrocardiogram showed normal sinus rhythm, normal axis with poor R wave progression and minor nonspecific ST-T wave abnormality. The Lexiscan was infused over a period of 20 seconds. A total of 0.4 mg of Lexiscan was infused. The stress phase was continued for a total of 5 minutes. Heart rate was at the end of stress phase was 85 bpm and a blood pressure of 133/71 mmHg. The EKG at the peak infusion revealed normal sinus rhythm with no significant ST-T wave changes. Sestamibi was injected 20 seconds after the Lexiscan infusion. Blood pressure at the end of recovery phase was 137/68 mmHg with a heart rate of 87 bpm. Conclusion: 1. Normal EKG response to Lexiscan infusion 2. No Lexiscan induced chest pain or cardiac arrhythmia. 3. Normal blood pressure and heart rate response. 4. Nuclear myocardial perfusion scan pending; see separate report. Electronically Signed On 01-14-2025 11:48:47 CDT by Guido Blackman M.D. [email or web address]
[2025-01-11 08:45] VITALS: BMI 29.6
--- NOTE | 2025-01-11 08:47 | NMCV_ITS ---
NM margarita perf SPECT r/s* [id number] Deejay Hankins Age: 74 Gender: M : 1950 Exam Date: 01/11/2025 09:28 Ordering Phys: Tommy Obrien MD ([email or web address]) Technologist: HUGH Velasquez Exam Location: [facility] Indications: cp STRESS TEST Please see separate stress test report in [facility] for full findings IMAGE PROTOCOL Rest/Stress 1 Exercise Day Radiopharmaceutical Dose (mCi) Administration Site Administered by Rest: Tc-99m 10.5 IV HUGH Velasquez Sestamibi Stress:Tc-99m 32.9 IV Jena Walton RN [facility] Sestamibi Rest: 11-Jan-2025 60 Discovery 630 Stress: 11-Jan-2025 15 Discovery 630 Radiopharmaceutical was injected at 86 % maximum heart rate. Images obtained in supine and prone position. SPECT RESULTS Technical Quality: Good Raw Data Analysis: Normal Image Corrections: No attenuation or motion correction applied Summed Stress Score: 1 Summed Rest Score: 0 Summed Difference Score: 1 PERFUSION FINDINGS SPECT images demonstrate homogeneous tracer distribution throughout the myocardium. FUNCTIONAL RESULTS (calculated via Gated SPECT) Stress Image LV EF (%): 80 Stress EDV (mL):61 TID: 0.74 Stress ESV (mL):12 FUNCTIONAL FINDINGS: There is normal left ventricular systolic function. IMPRESSIONS Myocardial perfusion imaging is normal. Normal LV size and systolic function, EF 80% Guido Blackman MD, FACC (Electronically Signed) Final Date: 11 January 2025 12:02 S
[2025-01-11 09:21] LABS: Anion Gap 14.2 (5-19); Blood Urea Nitrogen 17 mg/dL (8-23); Calcium 9.7 mg/dL (8.5-10.5); Carbon Dioxide 31 mmol/L (22-29); Chloride 98 mmol/L (98-107); Creatinine Clr Calc Pharmacy 65.6135; Glucose 166 mg/dL (65-115); Osmolality Calculated 293 mOsm/kg (285-295); Potassium 4.2 mmol/L (3.5-5.1); Sodium 139 mmol/L (136-145)
[2025-01-11 10:22] VITALS: BP 148/108; PULSE 92
== END 2025-01-11 08:16 | disposition home or self-care (01) ==
LOC: CDL 08:15
PROVIDERS: PCP Nurse Practitioner Family; Visit Provider Internal Medicine Cardiovascular Disease
DX: R06.02 Shortness of breath (principal)
CPT/HCPCS: 36415; 78452; 80048; 93017; A9500

== ENCOUNTER → 2025-01-17 09:26 | Outpatient (BNVA) | payer MEDICARE, OTHER, SELFPAY | PROVIDERS: PCP Nurse Practitioner Family; Visit Provider Nurse Practitioner Family | DX: E11.65 Type 2 diabetes mellitus with hyperglycemia (principal); Z79.899 Other long term (current) drug therapy; R07.89 Other chest pain; R39.9 Unspecified symptoms and signs involving the genitourinary system; R10.9 Unspecified abdominal pain; Z96.641 Presence of right artificial hip joint | CPT/HCPCS: 74018; 80053; 80061; 81000; 81003; 82306; 82607; 83036; 84443; 85025; 87086 ==

== ENCOUNTER 2025-04-12 09:53 | Outpatient (CLI) | payer MEDICARE, OTHER, SELFPAY | END 2025-04-12 09:54 | disposition home or self-care (01) | LOC: LAB 09:55 | PROVIDERS: PCP Nurse Practitioner Family; Visit Provider Nurse Practitioner | DX: R19.7 Diarrhea, unspecified (principal) | CPT/HCPCS: 87045; 87427; 87449 ==

== ENCOUNTER → 2025-04-17 12:20 | Outpatient (BNVA) | payer MEDICARE, OTHER, SELFPAY | PROVIDERS: PCP Nurse Practitioner Family; Visit Provider Nurse Practitioner Family | DX: R07.89 Other chest pain (principal); Z91.014 Allergy to mammalian meats; I10 Essential (primary) hypertension; Z12.5 Encounter for screening for malignant neoplasm of prostate; Z79.899 Other long term (current) drug therapy; R10.9 Unspecified abdominal pain | CPT/HCPCS: 80053; 80061; 82306; 84443; 85025; 86003; 86008; G0103 ==

== ENCOUNTER 2025-05-11 10:47 | Outpatient (CLI) | payer MEDICARE, OTHER, SELFPAY ==
[2025-05-11 11:48] LABS: Estmated Average Glucose 157; Hemoglobin A1C 7.1 % (4.0-6.0)
== END 2025-05-11 10:48 | disposition home or self-care (01) ==
LOC: LAB 10:50
PROVIDERS: PCP Nurse Practitioner Family; Visit Provider Nurse Practitioner Family
DX: R10.9 Unspecified abdominal pain (principal); Z79.899 Other long term (current) drug therapy
CPT/HCPCS: 83036; 86003; 86008

== ENCOUNTER 2025-05-22 15:55 | Outpatient (CLI) | payer MEDICARE, OTHER, SELFPAY ==
[2025-05-22] MEDS: iohexol 350 mg/mL 500 mL Btl (per mL) PO (16:26)
--- NOTE | 2025-05-22 17:15 | CT_ITS ---
WS: [id number] CT ABDOMEN AND PELVIS WITH CONTRAST HISTORY: R10.32 - Left lower quadrant pain TECHNIQUE: Imaging performed of the abdomen and pelvis with IV contrast. Single phase imaging of the abdomen. Coronal and sagittal reformats are submitted. All CT scans at [facility] use at least one of these dose optimization techniques: automated exposure control; mA and/or kV adjustment per patient size (includes targeted exams where dose is matched to clinical indication); or iterative reconstruction. IV CONTRAST: Omnipaque 350; 100 mL IV. Oral contrast: Yes. DLP: 480.76 mGy.cm COMPARISON: 02/27/2024 Lower thorax: Lung bases are clear. Heart is normal size. No hiatal hernia. Liver/biliary system: Normal size with no intrahepatic dilatation. Gallbladder: Normal. No gallstones or wall thickening. No pericholecystic fluid. Pancreas: Normal size pancreas and pancreatic duct. No adjacent inflammation. Spleen: Normal size spleen. No mass or infarct. Adrenal glands: Normal. Right kidney: Mild perinephric stranding. No obstruction. Horseshoe kidney. Left kidney: Mild perinephric stranding. No obstruction. Horseshoe kidney. Tiny 5 mm cortical cyst. Aorta: Mild atherosclerosis with no aneurysm. Lymphadenopathy: None. Free fluid: None. GI tract: Stomach is nondistended. No small bowel obstruction. Prior appendectomy. Mild constipation. Moderate diverticular burden in the descending and sigmoid colon. There is mild wall thickening but no evidence for acute diverticulitis. 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 Abdominal wall: Unremarkable abdominal wall. No hernia. Pelvis: Large LEFT inguinal canal patent hernia. There is a large lipoma along the LEFT inguinal canal which extends into the pelvis and is displacing the sigmoid colon centrally. There is a smaller fat-containing inguinal canal on the RIGHT. No free fluid. Urinary bladder is not very well distended. Bones: Prior RIGHT hip arthroplasty. CT/CT abdomen pelvis w con* [id number] IMPRESSION: 1. Horseshoe kidneys. No obstruction. Mild perinephric stranding appears chron ic. 2. Distal colon and sigmoid diverticulosis without definite evidence for acute diverticulitis. There is narrowing of the lumen. 3. 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 Lipoma is causing displacement of the sigmoid centrally. This lipoma mahajan s been described on prior studies. As compared to multiple prior CTs there has been progression in size of this lipoma since 2017. 4. No free fluid or adenopathy. 5. Prior appendectomy.
[2025-05-22] MEDS: iohexol 350 mg/mL 500 mL Btl (per mL) IV (17:25)
== END 2025-05-22 15:56 | disposition home or self-care (01) ==
LOC: RAD 15:56
PROVIDERS: PCP Nurse Practitioner Family; Visit Provider Nurse Practitioner Family
DX: R10.32 Left lower quadrant pain (principal); Q63.1 Lobulated, fused and horseshoe kidney; N15.9 Renal tubulo-interstitial disease, unspecified; K57.30 Diverticulosis of large intestine without perforation or abscess without bleeding; D17.5 Benign lipomatous neoplasm of intra-abdominal organs; Z90.49 Acquired absence of other specified parts of digestive tract
CPT/HCPCS: 74177